=== PATIENT | female | born 1940 | race Caucasian/White ===

== ENCOUNTER → 2023-12-24 10:45 | Outpatient (REF) | payer MEDICARE, OTHER, SELFPAY | LOC: DHCBC MAIN 10:45 | PROVIDERS: ATTENDING PHYSICIAN Internal Medicine Cardiovascular Disease; FAMILY PHYSICIAN Family Medicine | DX: I25.10 Atherosclerotic heart disease of native coronary artery without angina pectoris (principal); I21.4 Non-ST elevation (NSTEMI) myocardial infarction; I10 Essential (primary) hypertension; R00.2 Palpitations; R01.1 Cardiac murmur, unspecified | CPT/HCPCS: 93306 ==

== ENCOUNTER 2024-01-21 21:51 | Inpatient (IN) | payer MEDICARE, OTHER, SELFPAY ==
[2024-01-21 18:12] VITALS: BP 127/50
[2024-01-21 18:49] LABS: % Basophils 0.1 % (0-2); % Eosinophils 0.1 % (0-6); % Immature Granulocytes 1.1 % (0-0.5); % Lymphocytes 9.8 % (20.5-51.1); % Monocytes 17.6 % (1.7-9.3); % Neutrophils 71.3 % (42.2-75.2); Absolute Immature Granulocytes 0.2 10^3/uL (0-0.05); Absolute Lymphocytes 1.9 10^3/uL (1.2-3.4); Absolute Monocytes 3.5 10^3/uL (0.1-0.6); Hematocrit 28.8 % (37.0-47.0); Hemoglobin 9.3 g/dL (12.0-16.0); Mean Corp Hgb Conc. 32.3 g/dL (33.0-37.0); Mean Corpuscular Hgb 29.8 pg (27.0-31.0); Mean Corpuscular Volume 92.3 fL (81.0-99.0); Mean Platelet Volume 9.7 fL (7.4-10.4); Nucleated Red Blood Cells % 0 %; Platelet Count 219 10^3/uL (130-400); Red Blood Cell Count 3.12 10^6/uL (4.20-5.40); Red Cell Dist. Width 14.9 % (11.5-14.5); White Blood Cell Count 19.7 10^3/uL (4.8-10.8)
[2024-01-21 19:08] LABS: ALT (SGPT) 18 U/L (0-35); AST (SGOT) 31 U/L (14-36); Albumin 3.6 g/dl (3.5-5.0); Alkaline Phosphatase 94 U/L (38-126); Blood Urea Nitrogen 55 mg/dl (7-17); Calcium 8.4 mg/dl (8.4-10.2); Carbon Dioxide 9 mmol/L (22-30); Chloride 100 mmol/L (98-107); Glucose 82 mg/dl (70-99); Potassium 4.1 mmol/L (3.5-5.1); Sodium 132 mmol/L (135-145); Total Bilirubin 0.6 mg/dl (0.2-1.3); Total Protein 6.8 g/dl (6.3-8.2); eGFR 5.39
--- NOTE | 2024-01-21 20:16 | ED.GENMED ---
History of Present Illness
General
Chief Complaint: Abdominal Symptoms
Source: patient
Exam Limitations: none
Time Seen by Provider: 01/21/24 19:54
Travel History
Have you had any contact with someone who has COVID-19?: No
Do you have any symptoms of coronavirus? Fever > 100 degrees, chills, cough, shortness of breath, sore throat, loss of taste or smell, muscle aches, or headache?: No
History of Present Illness
History of Present Illness:
This is a 83 year old female that comes in with c/o abd pain. States that last she went to see the PCP. States that she had abd pain and has been having diarrhea. States that she was told that this is colitis and place on Keflex 500mg Q8
hours and Flagyl 500mg Q8 hours. States that she tookd her last dose at 5pm today. states that her PCP has been checking on her and she is not getting any better. States that today he told her to come to the ER. Patient had a CT scan yesterday at
the [facility]. States that she has had chills, abd pain, dry heaves and diarrhea. Denies any fever, chest pain, SOB, nausea, headache, dizziness, urinary burning.
Past History
Past History
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
ED Past Surgical History: Cardiac (Stent), Urological (Bladder tumor removed, ) and Other (Right and left Carotid endarterectomy)
Social History
Tobacco: Non-smoker
Alcohol: Occasional
Personal:
Living: alone
Review of Systems
Review of Systems
All Other Systems: ROS reviewed and negative except as documented in HPI and ROS
Constitutional: Reports chills; Denies fever
EENT: Reports no symptoms
Respiratory: Reports no symptoms; Denies cough or trouble breathing
Cardiac: Reports no symptoms; Denies chest pain
ABD/GI: Reports abdominal pain, diarrhea and other (Dry heaves); Denies nausea
: Reports other (Decreased output); Denies dysuria, frequency or urgency
Musculoskeletal: Reports no symptoms
Skin: Reports no symptoms
Neurological: Reports no symptoms; Denies dizzy or headache
Psychiatric: Reports no symptoms
Phy Exam
General Physical Exam
General Presentation: no apparent distress
General age: appears stated age
General Skin: warm and dry
General Habitus: elderly
General Mental: alert
General Hydration: dry mucous membranes
ENT Exam
ENT Exam: TM's normal, pharynx normal and neck supple
Cardiovascular Exam
Cardiovascular Exam: regular rate/rhythm, no edema and normal peripheral pulses
Pulmonary Exam
Pulmonary Exam: lungs clear, no respiratory distress, no rales, chest non tender, no crackles, no rhonchi, no wheezing and no cough
Gastrointestinal Exam
Gastrointestinal Exam: normal bowel sounds, soft, no organomegaly, no pulsatile mass, non distended and tender (left sided tenderness with palpation)
Musculoskeletal Exam
Musculoskeletal Exam: full ROM and no edema
Skin Exam
Skin Exam: normal color, warm/dry, no rash and no petechia
Psychiatric Exam
Psychiatric Exam: normal mood/affect
Course
Orders/Labs/Results
Orders:
Orders
01/21/24 18:20
CMP [Comprehensive Metabolic Panel] Urgent
Complete Blood Count/With Diff Urgent
Erythrocyte Sed Rate Urgent
Comment: ADDED
01/21/24 20:07
Urinalysis Reflex To Culture Urgent
0.9% Sodium Chloride 1000 ml [Nss] 1,000 ml IV BOLUS
Piperacillin/Tazo 3.375 Gram [Zosyn] 3.375 gram in 50 ml IV NOW
01/21/24 20:08
Bladder Scan- Treatment ONCE
01/21/24 20:31
STOOL [C difficile Antigen & Toxins] Urgent
SAMSON Source: Feces/Stool
Specimen Description:
Stool Culture Urgent
SAMSON Source: Feces/Stool
Specimen Description:
Stool For WBC Urgent
SAMSON Source: Feces/Stool
Specimen Description:
01/21/24 21:01
Admit/Transfer Patient As Directed
Co-Sign Provider:
Level of Care: Inpatient admission
Assign to:: IMU- Intermediate Care
Physician / Group: Mayank
Diagnosis: Colitis, Sepsis, [place]
Reason for Hospitalization: Colitis, Sepsis, [place]
Expected length of stay greater than two midnights?: Yes
ELOS- Estimated Length of Stay in days: 4
I certify the patient meets the requirements for IP care: Yes
01/21/24 21:08
Code Status As Directed
Resuscitation Status: Full Code
01/21/24 21:18
Lactic Acid Urgent
01/21/24 23:11
Blood Culture Q1M
SAMSON Source: Blood/Venous
Specimen Description:
Acetaminophen [Tylenol] 650 mg PO Q4HPRN PRN
Dextrose 5%/Water 1000 ml [D5w] 1,000 ml Sodium Bicarbonate 150 meq IV 125 mls/hr
Dextrose 50%-Water [Dextrose 50% Syringe] 12.5 grams IV [id number] PRN
Glucagon [GlucaGen] 1 mg IM PRN PRN
HYDROmorphone [Dilaudid] 0.5 mg IV Q4HPRN PRN
01/21/24 23:11
GASTROINTESTINAL CONSULT Routine
Consulting Provider: Nae Marr
Was physician already notified: Yes
Reason for consult: Colitis
Calprotectin, Fecal [S] Routine
TSH Reflex To Free T4 Routine
Activity As Directed
Activity Level: Bedrest
Bedside Glucose Monitoring As Directed
Frequency: AC&HS
Comment: Change to q6h if pt on TPN, tube feeding or not eating
Bladder Scan As Directed
Follow Bladder Retention/Intermittent Cath Algorithm?: Yes
PRN if no void in __ hours: 6
Frequency: Per Retention Algorithm
If Bladder Scan Result >: 400
then:: Straight cath
EKG with chest pain [ECG as needed] As Directed
ECG as needed for:: Chest Pain
I/O [Intake/ Output] As Directed
Frequency: Per unit guidelines
Orthostatic Vital Signs As Directed
Orthostatic VS Frequency: BID
Pneumatic Compression Sleeves As Directed
Type: Knee high
Straight Cath As Directed
Frequency: Per Retention Algorithm
Additional Instructions: straight cath as needed per acute urinary retention algorithm for 24 hrs
Additional Instructions: for bladder scan greater than 400 mL
Vital Signs As Directed
Frequency: Per unit guidelines
Weight As Directed
Frequency: Daily
Oxygen Therapy [O2 Therapy] [RESP] Routine
Titrate/Wean O2 to maintain O2 sat greater than (%): 94
Ot Eval And Treat Routine
PT Consult [Pt Eval And Treat] Routine
Activity Level: Ambulate
With Assistance
DX Deep Vein Thrombosis Video Routine
01/21/24 23:12
Blood Culture Q1M
SAMSON Source: Blood/Venous
Specimen Description:
01/22/24 04:00
Piperacillin/Tazo 2.25 Gram [Zosyn] 2.25 grams in 50 ml IV Q8H
01/22/24 Breakfast
Clear Liquid
At Your Request: Full Participation
Basic Metabolic Panel IN AM
Complete Blood Count/No Diff IN AM
Glycohemoglobin (HgbA1c) IN AM
Magnesium IN AM
01/22/24 07:30
Insulin Aspart Corrective Low [Novolog Flexpen-Low Resistance] See Protocol SC AC
01/22/24 08:00
Brimonidine [Alphagan 0.2% Eye Drops] 0 drop RIGHT EYE BID
Clopidogrel Bisulfate [Plavix] 75 mg PO DAILY
Timolol Maleate 0.5% [Timoptic 0.5% Ophthalmic Solution] 0 drop RIGHT EYE DAILY
01/22/24 18:00
Enoxaparin Sodium [Lovenox] 40 mg SC QPM
Abnormal Lab Results
01/21/24 01/21/24
18:20 21:18
WBC 19.7 H 10^3/uL
(4.8-10.8)
RBC 3.12 L 10^6/uL
(4.20-5.40)
Hgb 9.3 L g/dL
(12.0-16.0)
Hct 28.8 L %
(37.0-47.0)
MCHC 32.3 L g/dL
(33.0-37.0)
RDW 14.9 H %
(11.5-14.5)
Abs Immat Gran (auto) 0.2 H 10^3/uL
(0-0.05)
Absolute Neuts (auto) 14.0 H 10^3/uL
(1.4-6.5)
Absolute Monos (auto) 3.5 H 10^3/uL
(0.1-0.6)
Immature Gran % 1.1 H %
(0-0.5)
Lymphocytes % 9.8 L %
(20.5-51.1)
Monocytes % 17.6 H %
(1.7-9.3)
ESR 74 H mm/hour
(0-20)
Sodium 132 L mmol/L
(135-145)
Carbon Dioxide 9 L* mmol/L
(22-30)
BUN 55 H mg/dl
(7-17)
Creatinine 7.1 H* mg/dL
(0.6-1.0)
Lactic Acid < 0.5 L mmol/L
(0.7-2.0)
01/21/24 18:20
01/21/24 18:20
Leukocytosis, H/H low. Sodium slightly low. Carbon dioxide extremely low. Acute renal failure, Lactic acid <0.5
Vital Signs
Initial and Last Documented VS:
Initial Vital Signs
Temp Pulse Resp BP Pulse Ox
98.4 F 94 18 127/50 97
01/21/24 18:12 01/21/24 18:12 01/21/24 18:12 01/21/24 18:12 01/21/24 18:12
Last Documented Vital Signs
Temp Pulse Resp BP Pulse Ox
98.6 F 74 17 123/62 96
01/21/24 23:20 01/22/24 01:15 01/22/24 01:15 01/22/24 00:00 01/22/24 01:24
MDM/Problems Addressed
Differential Diagnosis Includes:
Colitis, Renal failure,
MDM/Problems Addressed:
This is a 83 year old female that comes in with c/o abd pain. Patient was seen by the PCP last and diagnosed with Colitis. States that she was not getting any better and was sent for a CT scan yesterday. Today patient was told to come to
the hospital.
Explained to patient that she would be admitted as she was in renal failure and has continued Colitis even after the antibiotics. Will give IV fluids and admit. Patient was bladder scanned for only 10ml after voiding. Hospitalist notified.
Chronic conditions affecting care: DM
Acute Exacerbation and/or Progression of Chronic Illness:
NA
*Radiology
Radiology exam reviewed: other (CT done as out patient yesterday: Moderate Colitis of the sigmoid colon, which may be inflammatory or infectious. )
*Pulse Oximetry
Patient hypoxic: no
*EKG
Interpreted by ED Provider?: NA
Rate: EKG- N/A
*Sql Data Analyst Interpretation
Rate: normal
Heart Rate: 89
Rhythm: sinus
*Critical Care Note
Total Time (30-74mins, 75-104mins- exclusive of procedures): Not Applicable
ED Attending Note
-
Portions of this chart may have been created with voice recognition software.� Occasional wrong word or��sound alike� substitutions may have occurred due to the inherent limitations of voice recognition software.
Discharge Plan
Departure
Patient Disposition: Admit
Admit to: Telemetry
Presentation/result/management discussed w/ accepting MD/DO: Hospitalist
Patient with high blood pressure during this ER visit?: No
Condition: Good
Covid-19: Not Applicable
Discharge Problem:
Acute renal failure, Colitis
Interventions
Interventions:
*Risk Screen - Suicide Last Done: 01/21/24 20:33
*General Assessment Last Done: 01/21/24 20:15
*Neglect/Abuse Screening Last Done: 01/21/24 20:15
*ED COVID-19 Vaccine History Last Done: 01/22/24 00:12
*Nursing Disposition Last Done: 01/21/24 23:13
[id number] Assessment Last Done: 01/21/24 20:31
Discharge Date and Time
Discharge Date/Time: 01/21/24 23:13
[2024-01-21] MEDS: NSS 1000 IV (20:18)
[2024-01-21] MEDS: ZOSYN 50 IV (20:19)
[2024-01-21 21:01] VITALS: BP 122/49
--- NOTE | 2024-01-21 21:13 | HPS.HSE ---
Family Physician
-
Family Physician:
Chief Complaint
-
Abd Pain, Diarrhea
History of Present Illness
Patient is an 83y F with PMH significant for ASCVD, HTN and ulcerative colitis who presents to ED complaining of abdominal pain and diarrhea. Patient states that her symptoms started one week ago with watery, mucousy stools and some crampy
abdominal discomfort. Patient notes that she started taking mesalamine / Lialda 2.4g daily - which she only takes when she is having a flare of her UC. Her symptoms did not improve and the following day she spoke with her GI physician who
recommended she increase her dose to 4.8g daily. Her symptoms persisted and patient notes several watery BMs per day mixed with mucus - at times large amounts. Stool is described as 'orange / brown'. She reports some abdominal discomfort -
specifically in the upper abdomen.
She has had intermittent chills, poor appetite and general malaise. Patient reports initial urinary frequency - followed by decrease in urinary output.
Yesterday, she was seen by her GI physician. CT scan was done as an outpatient which shows sigmoid colitis. Patient was prescribed cephalexin and metronidazole which she started yesterday afternoon.
Today she continued to feel poorly and was advised to present to the ED for further evaluation.
Medical History
Past Medical History
Past Medical History: Reports Other
Additional Past Medical History:
Ulcerative Colitis
ASCVD (CAD, Carotid Disease, CVA)
Hypertension
DM-II, Diet Controlled
Bladder Cancer
Past Surgical History: Reports Other
Additional Past Surgical History:
Bilateral CEA
PTCA with Stent
Left Cataract
TURBT
Social History
Tobacco: Former Smoker (Quit smoking 20 years ago. Approx 40 pack years total use.)
Alcohol: Occasional
Drug: None
Family History
Family History: Other (Father: CAD Mother: Longevity)
Allergies / Home Medications
Allergies reflects when Allergies were last updated in [employer].
Home Medications with original date entered in [employer]
Allergy/Medication List:
Allergies
Allergy/AdvReac Type Severity Reaction Status Date / Time
No Known Allergies Allergy Verified 02/16/21 06:16
Home Medications
mesalamine 1.2 gram tablet,delayed release (Lialda) 4.8 g PO DAILY 09/11/18
nitroglycerin 0.4 mg sublingual tablet 0.4 mg sublingual [id number] PRN chest pain #25 tabs 09/12/18
empagliflozin 25 mg tablet (Jardiance) 25 mg PO DAILY Diabetes 01/03/21
rosuvastatin 40 mg tablet (Crestor) 40 mg PO HS High cholesterol 01/03/21
clopidogrel 75 mg tablet 75 mg PO DAILY #30 tabs 01/07/21
lorazepam 0.5 mg tablet 0.5 mg PO Q4HPRN PRN ANXIETY 02/08/21
latanoprost 0.005 % eye drops 1 drp RIGHT EYE HS Eye condition 02/16/21
metoprolol succinate 50 mg tablet,extended release 24 hr 50 mg PO DAILY 02/16/21
timolol maleate 0.5 % eye drops 1 drp RIGHT EYE DAILY Eye condition 02/16/21
acetaminophen 325 mg tablet 650 mg PO Q4HPRN PRN mild pain or temp >/= 100.4 F 02/17/21
brimonidine 0.2 % eye drops 1 drp RIGHT EYE BID 01/21/24
cephalexin 500 mg capsule 500 mg PO Q8H 01/21/24
lisinopril 40 mg tablet 40 mg PO DAILY 01/21/24
metronidazole 500 mg tablet 500 mg PO Q8H 01/21/24
Review of Systems
-
History Source: Patient
A 12 point ROS was completed and negative except as noted: Yes
Constitutional: Reports Fatigue and Chills; Denies Fever
EENT: Denies Sore Throat
Respiratory: Denies Cough or Trouble Breathing
Cardiac: Denies Chest Pain or Palpitations
Abdomen/GI: Reports Abdominal Pain, Diarrhea and Anorexia; Denies Nausea, Vomiting, Bloody Stools or Black Stools
: Reports Frequency; Denies Dysuria or Flank Pain
Musculoskeletal: Denies Joint Pain or Edema
Neurological: Denies Dizzy or Headache
Psych: Denies Depression or Anxiety
Physical Exam
Vital Signs
Vital Signs
Temp Pulse Resp BP Pulse Ox
98.4 F 87 18 127/50 99
01/21/24 18:12 01/21/24 20:22 01/21/24 20:22 01/21/24 18:12 01/21/24 20:22
Physical Exam
General: Other (83y F in no acute distress.)
HEENT: PERRLA and Other (Dry MM.)
Respiratory: Clear; No Wheezes, Rales or Rhonchi
Cardiac: S1/S2 and Regular Rhythm; No Murmur
GI: Other (Soft, pos tendern in the RUQ region at present. No rebound / guarding. Pos BS.)
Musculoskeletal: No Clubbing, No Cyanosis and No Edema
Neuro: AO x 3
Laboratory Results
-
01/21/24 18:20
01/21/24 18:20
Laboratory Results
Total Bilirubin 0.6 mg/dl (0.2-1.3) 01/21/24 18:20
AST 31 U/L (14-36) 01/21/24 18:20
ALT 18 U/L (0-35) 01/21/24 18:20
Alkaline Phosphatase 94 U/L (38-126) 01/21/24 18:20
Impression/Plan
-
A/P: Patient is an 83y F with PMH significant for ASCVD, HTN and ulcerative colitis who presents to ED complaining of abdominal pain and diarrhea x 1 week.
Sigmoid Colitis
Ulcerative Colitis
- Admit for further evaluation and treatment.
- Watery stool with mucus x 1 week - decreasing in frequency - with CT scan 01/20 showing sigmoid colitis.
- ? ulcerative colitis flare versus infectious versus ischemic.
- Only started on abx 24 hours ago.
- High risk for ischemic colitis given history of vascular disease, etc.
- Unable to do CTA, etc secondary to marked renal impairment (see below).
- IV abx for now. Check stool cultures / blood cultures.
- IVF support and avoid hypotension (see below).
- Follow clinical status, serial lactate levels, etc.
- GI evaluation for additional recommendations.
[place]
Anion Gap Metabolic Acidosis
- Likely secondary to hypovolemia +/- hypotension / ATN.
- IVF support with supplemental bicarb for now.
- Avoid hypotension.
- Follow I/Os / urine output.
- Follow for improvement in renal function.
- Nephrology evaluation for additional recommendations.
- Renally dose abx / other medications.
- Lactate is pending but suspect it will be significantly elevated - follow for improvement.
- CT done 01/20 was done WITHOUT contrast media.
Benign Hypertension
- Hold all antihypertensive medications acutely.
- Discontinue SGLT2 inhibitor.
- IVF support as noted above.
ASCVD
- Patient with significant history of vascular disease including coronary disease, bilateral carotid disease and R retinal artery occlusion.
- Continue Plavix.
- Hold BP meds as noted above.
- IVF support / avoid hypotension.
DM-II
- Stable. Hold / discontinue Jardiance as noted above.
- Follow glucose and cover with SSI as needed.
- Update A1C.
DVT Prophylaxis: Lovenox
Code Status: Full
[2024-01-21 21:35] LABS: Lactic Acid < 0.5 mmol/L (0.7-2.0)
[2024-01-21 22:00] VITALS: BP 94/50
[2024-01-21 23:00] VITALS: BP 110/59
[2024-01-21 23:18] VITALS: BP 126/54
[2024-01-21 23:20] VITALS: BMI 30.4
[2024-01-22] VITALS (10 sets, daily range): BP systolic 94–129; BP diastolic 48–75; BMI 30.7
[2024-01-22] MEDS: SODIUM BICARBONATE 1150 MEQ IV ×3 (00:05→20:01)
[2024-01-22 00:43] LABS: Erythrocyte Sed Rate 74 mm/hour (0-20)
[2024-01-22 01:25] LABS: TSH Reflex To Free T4 0.66 uIU/ml (0.47-4.68)
[2024-01-22] MEDS: ZOSYN 50 IV ×3 (03:58→20:01)
[2024-01-22 04:16] LABS: Hematocrit 26.7 % (37.0-47.0); Hemoglobin 8.7 g/dL (12.0-16.0); Mean Corp Hgb Conc. 32.6 g/dL (33.0-37.0); Mean Corpuscular Hgb 29.5 pg (27.0-31.0); Mean Corpuscular Volume 90.5 fL (81.0-99.0); Mean Platelet Volume 9.5 fL (7.4-10.4); Platelet Count 207 10^3/uL (130-400); Red Blood Cell Count 2.95 10^6/uL (4.20-5.40); Red Cell Dist. Width 14.8 % (11.5-14.5); White Blood Cell Count 15.7 10^3/uL (4.8-10.8)
[2024-01-22 04:46] LABS: Blood Urea Nitrogen 62 mg/dl (7-17); Calcium 7.4 mg/dl (8.4-10.2); Carbon Dioxide 10 mmol/L (22-30); Chloride 100 mmol/L (98-107); Estimated Creatinine Clearance 6 ml/min; Glucose 144 mg/dl (70-99); Magnesium 2.5 mg/dl (1.6-2.3); Potassium 4.3 mmol/L (3.5-5.1); Sodium 133 mmol/L (135-145); eGFR 5.21
--- NOTE | 2024-01-22 05:07 | PTCARENOTE ---
Received patient from the ED overnight. Remains on IVF with bicarb with no urine output. Bladder scanned for 0.
--- NOTE | 2024-01-22 06:56 | CON.GI ---
Addendum entered and electronically signed by Nae Marr MD 01/22/24 17:56:
I saw and examined the patient.
The CUT FILE CLERK's note was reviewed and I agree with the note.
Comment: This is a 83-year-old female who has a history of ulcerative colitis known to Dr. Feldman and was using Lialda as needed whenever she had a flare who had been having symptoms of diarrhea with mucus in her stool no blood in her stool for the
past 1 week. no f/c. She says that she restarted her Lialda last week was taking 2.4 gmdaily when she did not have improvement of symptoms was recommended to increase the dose to 4.8 g daily she also had a CT as an outpatient 01/20 which was noted to
have sigmoid colitis and was started on antibiotics with cephalexin and metronidazole which she started yesterday with no improvement of symptoms and presented to the emergency room. On admission she was noted to have severe BROOK[place]N with anion gap
metabolic acidosis and has also been seen by renal and her electrolytes are being corrected also. She also had leukocytosis which is improving on antibiotic she is currently on Zosyn, her stool studies C. difficile antigen positive but toxin
negative, crypto and Giardia negative, cultures pending
Assessment and plan symptoms of diarrhea with mucus in her stool nonbloody for the past 1 week with severe dehydration also from decreased p.o. intake with BROOK[place]N and metabolic acidosis. Will stop Lialda for now since cannot rule out worsening renal
function from Lialda also. Unclear if her symptoms are related to flare or if it was related to infectious colitis or ischemic colitis. If her symptoms persist and cultures neg, then will start her on budesonide or prednisone unfortunately her
last colonoscopy was in 2012 and patient had refused colonoscopy after that because of her underlying comorbidities. Continue clear liquid diet for now, will also get fecal kuldeep, CRP is 224.
Noted input from renal for renal biopsy after Plavix washout and to be started on hemodialysis soon
Original Note:
Consultation
-
Date/Time Consultation Requested: 01/21/24 2300
Date/Time Consultation Performed: 01/22/24 0700
Requesting Provider: Kobe Talley DO
Performing Provider: RICHIE Argueta, Nae Marr MD
Reason for Consultation: colitis
Medical History
Chief Complaint / HPI
Chief Complaint: diarrhea, abdominal pain
History of Present Illness:
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 She had follow up with
[facility] and with hx multiple medical issue as declined colonoscopy in past 10 years. She related she use Lialda for per colitis PRN. She will have flare about every 6 months and take 1-2 weeks of therapy. She started last Saturday with diarrhea and
started Lialda 2.4 gram tablet then diarrhea and mucous continued. She spoke with Dr. Nuñez her PCP on and recommended increase dose to 4.8 grams daily. On Saturday she was noted with shaking chill while at PT but recall BP stable at
118/52 and 130/74 during therapy session. She persisted to have abdominal pain and diarrhea but not large volumes and PCP recommended CT and abx. She completed CT without contrast 01/20 with moderate colitis of sigmoid colon infectious vs
inflammatory and directed to ER. On admission noted with WBC 19.7, hbg 9.3, Na 132, co2 9, BUN 55, creat 7.1.
Pt admits to continued abdominal pain and small volumes of diarrhea. She has been noted with dry heaves but denies dysphagia, GERD,nausea, vomiting, blood or black in stools.
03/2013 Feldman colonoscopy inflammation in mid ascending colon secondary to colitis bx active colitis ascending colon with other bx evidence of chronicity
01/2010 Feldman colonoscopy-glandularity at hepatic flexure, diverticulosis, mccormick ulcerative colitis bx with TC active colitis congestion and increased inflammation cell with foci of active inflammation with cryptitis
Past Medical History
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
Past Surgical History: Cardiac (stent), Urological (bladder tumor removal, right and left carotids endarterectomy) and Other (CEA)
Social History
Tobacco: Former Smoker (quit 2003)
Alcohol: None
Drug: None
Personal:
Living: Alone
Employment: Retired
Family History
Family History: Other (brother maternal uncle, and cousin with UC, mother with colon problems no family hx colon cA or polyps)
Allergies / Home Medications
Allergy/AdvReac Type Severity Reaction Status Date / Time
No Known Allergies Allergy Verified 02/16/21 06:16
Medication Instructions Recorded
mesalamine 1.2 gram tablet,delayed 4.8 g PO DAILY 09/11/18
release (Lialda)
nitroglycerin 0.4 mg sublingual 0.4 mg sublingual [id number] PRN 09/12/18
tablet chest pain #25 tabs
empagliflozin 25 mg tablet 25 mg PO DAILY Diabetes 01/03/21
(Jardiance)
rosuvastatin 40 mg tablet (Crestor) 40 mg PO HS High cholesterol 01/03/21
clopidogrel 75 mg tablet 75 mg PO DAILY #30 tabs 01/07/21
lorazepam 0.5 mg tablet 0.5 mg PO Q4HPRN PRN ANXIETY 02/08/21
latanoprost 0.005 % eye drops 1 drp RIGHT EYE HS Eye condition 02/16/21
metoprolol succinate 50 mg 50 mg PO DAILY 02/16/21
tablet,extended release 24 hr
timolol maleate 0.5 % eye drops 1 drp RIGHT EYE DAILY Eye condition 02/16/21
acetaminophen 325 mg tablet 650 mg PO Q4HPRN PRN mild pain or 02/17/21
temp >/= 100.4 F
brimonidine 0.2 % eye drops 1 drp RIGHT EYE BID 01/21/24
cephalexin 500 mg capsule 500 mg PO Q8H 01/21/24
lisinopril 40 mg tablet 40 mg PO DAILY 01/21/24
metronidazole 500 mg tablet 500 mg PO Q8H 01/21/24
Review of Systems
-
History Source: Patient
Constitutional: Reports Chills
EENT: Reports No Symptoms
Respiratory: Reports No Symptoms
Cardiac: Reports No Symptoms
Abdomen/GI: Reports Nausea (dry heaves ) and Diarrhea
: Reports No Symptoms
Musculoskeletal: Reports No Symptoms
Skin: Reports No Symptoms
Neurological: Reports Weakness
Endocrine: Reports No Symptoms
Hematologic/Lymphatic: Reports No Symptoms
Vital Signs
Temp Pulse Resp BP Pulse Ox
98.3 F 77 16 124/75 97
01/22/24 03:05 01/22/24 05:45 01/22/24 05:45 01/22/24 04:00 01/22/24 05:45
Physical Exam
Exam
General: Well Developed, Well Nourished and No Apparent Distress
HEENT: Normocephalic and Anicteric
Respiratory: Clear
Cardiac: Regular Rhythm
GI: Soft, Non Tender and Non Distended
Musculoskeletal: No Clubbing and No Cyanosis
Skin: Warm and Dry
Neuro: Awake, Alert and AO x 3
Psych: Calm
Results
WBC 15.7 10^3/uL (4.8-10.8) H 01/22/24 03:53
Hgb 8.7 g/dL (12.0-16.0) L 01/22/24 03:53
Hct 26.7 % (37.0-47.0) L 01/22/24 03:53
MCV 90.5 fL (81.0-99.0) 01/22/24 03:53
Plt Count 207 10^3/uL (130-400) 01/22/24 03:53
Absolute Neuts (auto) 14.0 10^3/uL (1.4-6.5) H 01/21/24 18:20
Sodium 133 mmol/L (135-145) L 01/22/24 03:53
Potassium 4.3 mmol/L (3.5-5.1) 01/22/24 03:53
Chloride 100 mmol/L (98-107) 01/22/24 03:53
Carbon Dioxide 10 mmol/L (22-30) L* 01/22/24 03:53
BUN 62 mg/dl (7-17) H 01/22/24 03:53
Creatinine 7.3 mg/dL (0.6-1.0) H* 01/22/24 03:53
Calcium 7.4 mg/dl (8.4-10.2) L 01/22/24 03:53
Total Bilirubin 0.6 mg/dl (0.2-1.3) 01/21/24 18:20
AST 31 U/L (14-36) 01/21/24 18:20
ALT 18 U/L (0-35) 01/21/24 18:20
Alkaline Phosphatase 94 U/L (38-126) 01/21/24 18:20
Diagnostic Image Results:
01/20/24 CT Abd/pelvis Wo Iv Cont
Moderate colitis of the sigmoid colon, which may be inflammatory or infectious.
Prior GI Procedures:
03/2013 [facility] colonoscopy inflammation in mid ascending colon secondary to colitis bx active colitis ascending colon with other bx evidence of chronicity
01/2010 Feldman colonoscopy-glandularity at hepatic flexure, diverticulosis, mccormick ulcerative colitis bx with TC active colitis congestion and increased inflammation cell with foci of active inflammation with cryptitis
Assessment / Plan
-
Pt is a 83yo presents with hx ulcerative colitis on PRN Lialda, , CAD, CKD, bladder and skin CA, HTN, hypercholesterolemia, NIDDM, TN, prior CVA with vision loss on chronic Plavix, with onset of abdominal pain and diarrhea. She had follow up with
Dr. Feldman and with hx multiple medical issue as declined colonoscopy in past 10 years. She related she use Lialda for per colitis PRN. She will have flare about every 6 months and take 1-2 weeks of therapy. She started last Saturday with diarrhea
and started Lialda 2.4 gram tablet then diarrhea and mucous continued. She spoke with Dr. Nuñez her PCP on and recommended increase dose to 4.8 grams daily. On Saturday she was noted with shaking chill while at PT but recall BP stable
at 118/52 and 130/74 during therapy session. She persisted to have abdominal pain and diarrhea but not large volumes and PCP recommended CT and abx. She completed CT without contrast 01/20 with moderate colitis of sigmoid colon infectious vs
inflammatory and directed to ER. On admission noted with WBC 19.7, hbg 9.3, Na 132, co2 9, BUN 55, creat 7.1.
-colitis with hx longstanding Ulcerative colitis Lialda use PRN
-diarrhea
-BROOKLYN with hx CKD
-metabolic acidosis
-leukocytosis
-anemia
-shaking chills prior to admission
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
other medical problems:
-HTN
-CAD
--DM on Jardiance prior to admission
-bladder CA
-skin CA
-hx CEA
PLAN:
etiology of diarrhea related to infectious etiology, UC flare vs other
await stool studies-- with concurrent BROOK[place]N need to rule out Ecoli shiga if + stop abx but no blood stools and not large volumes
add CRP, ESR and await fecal kuldeep to be sent
await renal input with [place] and correction of acidosis
hold Lialda for now as some risk of renal disease with use though not on long-term
pt remain on Plavix with hx CVA with CVA with visual loss
ok for clear diet- still with abdominal pain on exam
discussed with patient will need GI follow up after admission --prior follow with Dr. Feldman will need new GI MD to discuss continued UC treatment
will follow
-
-
Thank you for consultation and allowing me to participate in the patient's care. Please call the transactional paralegal GI physician during the after hours with any questions or concerns.
[2024-01-22 07:39] LABS: Glucose - Point of Care 179 mg/dl (70-99)
[2024-01-22] MEDS: HEPARIN 5000 UNITS SC ×2 (08:18→20:00)
[2024-01-22] MEDS: PLAVIX 75 MG PO (08:18)
[2024-01-22] MEDS: DILAUDID 0.5 MG IV ×3 (08:19→20:01)
[2024-01-22] MEDS: TIMOPTIC 0.5% OPHTHALMIC SOLUTION 1 DROP RIGHT EYE (08:20)
[2024-01-22] MEDS: NOVOLOG FLEXPEN-LOW RESISTANCE SC ×2 (08:52→14:20)
[2024-01-22 09:30] LABS: Erythrocyte Sed Rate 66 mm/hour (0-20)
[2024-01-22 09:58] LABS: Glycohemoglobin (HgbA1c) 6.9 % (4.0-5.6)
--- NOTE | 2024-01-22 10:00 | W.CON.NEPH ---
Consultation
-
Date/Time Consultation Requested: 01/22/24 0624
Date/Time Consultation Performed: 01/22/24 1000
Requesting Provider: Kobe David
Performing Provider: Carol Ruiz
Reason for Consultation: [place]
Medical History
-
Chief Complaint: abd pain
History of Present Illness:
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 Patient states that her
symptoms started one week ago with watery, mucousy stools and some crampy abdominal discomfort.� Patient notes that she started taking mesalamine / Lialda 2.4g daily - which she only takes when she is having a flare of her UC.� Her symptoms did not
improve and the following day she spoke with her GI physician who recommended she increase her dose to 4.8g daily.� Her symptoms persisted and patient notes several watery BMs per day mixed with mucus - at times large amounts. She reports some
abdominal discomfort - specifically in the upper abdomen.
She has had intermittent chills, poor appetite and general malaise.� Patient reports decreased urinary frequency with small volume in last 2-3days, no urine since admit.
CT scan was done as an outpatient with out contrast on 01/20 which shows sigmoid colitis.� Patient was prescribed cephalexin and metronidazole which she started on Saturday but no relief.
On Admit cr was 7, bicarb at 9, bicarb IVF started but no improvement cr remains at 7.3. No UOP. Denies any skin rashes or joint swelling. No edema. had no dysuria before.
Past Medical History
Ulcerative Colitis
ASCVD (CAD, Carotid Disease, CVA)
Hypertension
DM-II, Diet Controlled
Bladder Cancer
Past Surgical History: Other (Bilateral CEA PTCA with Stent Left Cataract TURBT)
Social History
smoked for 10 yr before quitting in 2002
Tobacco: Former Smoker
Alcohol: None
Family History
no h/o CKD
Family History: Not Pertinent
Allergies / Home Medications
Allergy/AdvReac Type Severity Reaction Status Date / Time
No Known Allergies Allergy Verified 02/16/21 06:16
Medication Instructions Recorded Confirmed Type
mesalamine 1.2 gram tablet,delayed 4.8 g PO DAILY ulcerative colitis 09/11/18 01/21/24 History
release (Lialda)
nitroglycerin 0.4 mg sublingual 0.4 mg sublingual [id number] PRN 09/12/18 01/21/24 Rx
tablet chest pain #25 tabs
empagliflozin 25 mg tablet 25 mg PO DAILY Diabetes 01/03/21 01/21/24 History
(Jardiance)
rosuvastatin 40 mg tablet (Crestor) 40 mg PO HS High cholesterol 01/03/21 01/21/24 History
clopidogrel 75 mg tablet 75 mg PO DAILY #30 tabs 01/07/21 01/21/24 Rx
lorazepam 0.5 mg tablet 0.5 mg PO Q4HPRN PRN ANXIETY 02/08/21 01/21/24 History
latanoprost 0.005 % eye drops 1 drp RIGHT EYE HS Eye condition 02/16/21 01/21/24 History
metoprolol succinate 50 mg 50 mg PO DAILY Blood Pressure 02/16/21 01/21/24 History
tablet,extended release 24 hr
timolol maleate 0.5 % eye drops 1 drp RIGHT EYE DAILY Eye condition 02/16/21 01/21/24 History
acetaminophen 325 mg tablet 650 mg PO Q4HPRN PRN mild pain or 02/17/21 01/21/24 Rx
temp >/= 100.4 F
brimonidine 0.2 % eye drops 1 drp RIGHT EYE BID Eye Condition 01/21/24 01/21/24 History
cephalexin 500 mg capsule 500 mg PO Q8H Infection 01/21/24 01/21/24 History
lisinopril 40 mg tablet 40 mg PO DAILY Blood Pressure 01/21/24 01/21/24 History
metronidazole 500 mg tablet 500 mg PO Q8H Infection 01/21/24 01/21/24 History
dorzolamide 2 % eye drops drp RIGHT EYE BID 01/22/24 History
Review of Systems
-
all complete 12 point ROS have been inquired and found negative other than stated in HPI
Physical Exam
Vital Signs
Vital Signs
Temp Pulse Resp BP Pulse Ox
98.9 F 79 19 129/59 97
01/22/24 07:20 01/22/24 07:00 01/22/24 07:00 01/22/24 06:00 01/22/24 07:00
Lab Results
WBC 15.7 10^3/uL (4.8-10.8) H 01/22/24 03:53
RBC 2.95 10^6/uL (4.20-5.40) L 01/22/24 03:53
Hgb 8.7 g/dL (12.0-16.0) L 01/22/24 03:53
Hct 26.7 % (37.0-47.0) L 01/22/24 03:53
Plt Count 207 10^3/uL (130-400) 01/22/24 03:53
Sodium 133 mmol/L (135-145) L 01/22/24 03:53
Potassium 4.3 mmol/L (3.5-5.1) 01/22/24 03:53
Chloride 100 mmol/L (98-107) 01/22/24 03:53
Carbon Dioxide 10 mmol/L (22-30) L* 01/22/24 03:53
BUN 62 mg/dl (7-17) H 01/22/24 03:53
Creatinine 7.3 mg/dL (0.6-1.0) H* 01/22/24 03:53
eGFR 5.21 01/22/24 03:53
Glucose 144 mg/dl (70-99) H 01/22/24 03:53
Calcium 7.4 mg/dl (8.4-10.2) L 01/22/24 03:53
Albumin 3.6 g/dl (3.5-5.0) 01/21/24 18:20
Exams:� CT Abd/pelvis Wo Iv Cont
PROCEDURE: CT Abdomen and Pelvis without IV Contrast
CLINICAL INDICATION: Noninfective gastroenteritis and colitis. Diarrhea. Abdominal pain. Bladder cancer.
TECHNIQUE: A CT examination of the abdomen and pelvis was performed without intravenous contrast. Oral contrast was not administered. Coronal and sagittal reformatted images were obtained. Automatic exposure control radiation dose reduction
technology was utilized.
COMPARISON: CT abdomen/pelvis 04/16/2007.
FINDINGS:
CHEST: The lung bases are clear. Small hiatal hernia.
ABDOMEN:
The gallbladder is distended without appreciable cholelithiasis or wall thickening by CT. The unenhanced liver, bile ducts, pancreas, spleen, bilateral adrenal glands, and kidneys are unremarkable. No hydronephrosis or nephrolithiasis.
The abdominal aorta is normal in caliber and contains moderate calcified atherosclerosis.
Tiny fat-containing umbilical hernia.
Moderate wall thickening involves a long segment of the sigmoid colon with pericolonic inflammatory fat stranding most compatible with colitis. No pneumatosis or portal venous gas. No bowel obstruction. Moderate colonic stool burden. Normal
appendix. No extraluminal free air, fluid collection, or ascites.
PELVIS: The urinary bladder, uterus, and adnexa are unremarkable.
SKELETON: Chronic degenerative changes of the spine, and to a lesser degree the bilateral sacroiliac joints and symphysis pubis.
IMPRESSION:
Moderate colitis of the sigmoid colon, which may be inflammatory or infectious.
Office of referring provider notified by telephone and by report fax.
Electronically signed by Timoteo Holbrook 01/20/2024 2:42 PM
[employer] Dose Report: Up-to-date CT equipment and radiation dose reduction techniques were employed. CTDIvol: 10.5 mGy. DLP: 523 mGy-cm.
Dictated By: James Holbrook DO
Dictated Date & Time: 01/20/24 1435
Physical Exam
General: Awake, Alert, Oriented and AOx3
HEENT: EOMI, Anicteric and Other (right eye blind)
Respiratory: Clear and Normal Excursion
Cardiac: S1/S2, Regular Rate/Rhythm and No Edema
Abdomen: Soft, Nondistended and Other (TTP gen more on LLQ)
Musculoskeletal: No Clubbing, No Cyanosis and No Edema
Skin: No Rash and Warm
Psych: Mood/afflect pleasant, Insight/judgement good and Appropriate
Assessment/Plan
-
IMP:
Sigmoid Colitis
Ulcerative Colitis
Severe BROOKLYN-cr 1 in 2020
severe Anion Gap Metabolic Acidosis
Anemia
Leucocytosis
Hyponatremia
Benign Hypertension
CAD s/p stent 2017
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
DM-II
bladder ca
Plan:
A/w abd pain, decreased po intake and found severe BROOK[place] and met acidosis
BROOK[place]N-seem multifactorial, relative hypotension, poor po intake, mesalamine for 1week(takes only as needed), with ACEI+ Jardiance(took for years)
suspect she may be in ATN with anuria, however can not r/o glomerular etiologies with underlying autoimmune disease
check serologies, paraprotein w/u with anemia
we only have labs to compare from 2020, unclear if she had progressive disease
place anne if possible , need urine studies
avoid nephrotoxins including ACEI and Jardiance
A gap met acidosis-L acid normal, pending B hydroxy
cotn bicarb IVF however decrease rate due to anuria, IV bicarb 2 amp push
she likely needs HD in next 24hrs , pt agrees
repeat labs this pm if no improvement likely place temp catheter
she will need K biopsy next week once plavix wash out, got the dose today
Bp are soft and holding all BP meds, echo recently was normal
abx per primary , dose meds renally
d/w pt and GI in detail
[2024-01-22] MEDS: SODIUM BICARBONATE 50 MEQ IV (10:42)
--- NOTE | 2024-01-22 11:29 | W.PN.HOSP.TC ---
Addendum entered and electronically signed by Nnamdi Aquino MD 01/22/24 15:38:
Patient seen and examined
Discussed with resident
Discussed with nephrology
Impression/plan:
Sigmoid colitis with differential ulcerative colitis flare versus infectious, versus ischemic.
Acute kidney injury with anuria likely multifactorial in the settings of dehydration with GI losses, anti-inflammatory therapy, PARVIZ inhibitor
Severe increased anion gap metabolic acidosis
ASCVD with remote stroke on Plavix PREPARED [employer]ATE
Diabetes
Empiric antibiotics pending stool cultures and stool for C. difficile
Gastroenterology consultation.
Clears.
Acute kidney injury with rising creatinine, anuria, and severe metabolic acidosis.
Discussed with nephrology.
Low threshold to initiate renal replacement therapy. Interventional GI consultation in place for HD catheter placement.
Will hold Plavix for possible required renal biopsy
Hope this is ATN and for some renal recovery, although patient have a risk for glomerular process.
Noted elevated serum acetone level likely in the settings of SGLT2 inhibitor.
Hold Jardiance.
Continue basal bolus protocol with serial Accu-Cheks
Hold PARVIZ inhibitor.
Remains critically ill
Original Note:
Today's Communication/Plan
-
Awaiting Blood cultures/stool cultures
Continue Abx
Monitor bmp
Avoid ACEI and Jardiance. Medications leading to ATN
Pending serologies.
Metabolic Acidosis, Cre 7.6.
Will need Hemodialysis within the next 24hours
Assessment / Plan
Assessment / Plan
A/P:� Patient is an 83y F with PMH significant for ASCVD, HTN and ulcerative colitis who presents to ED complaining of abdominal pain and diarrhea x 1 week.
Sigmoid Colitis
Ulcerative Colitis
�- Admit for further evaluation and treatment.
�- Watery stool with mucus x 1 week - decreasing in frequency - with CT scan 01/20 showing sigmoid colitis.
�- ? ulcerative colitis flare versus infectious versus ischemic.
�- Only started on abx 24 hours ago.
�- High risk for ischemic colitis given history of vascular disease, etc.
�- Unable to do CTA, etc secondary to marked renal impairment (see below).
�- IV abx for now.� Check stool cultures / blood cultures.
�- IVF support and avoid hypotension (see below).
�- Follow clinical status, serial lactate levels, etc.
�- GI evaluation for additional recommendations.
BROOK[place]N
Anion Gap Metabolic Acidosis
- Nephrology input appreciated
-BROOK[place]N Multifactorial
-Intake of ACEI and Jardiance for years leading to Acute Tubular Necrosis
-Kidney biopsy to rule out Glomerular etiologies.
�- Likely secondary to hypovolemia +/- hypotension / ATN.
�- IVF support with supplemental bicarb for now.
�- Avoid hypotension.
�- Follow I/Os / urine output.
�- Follow for improvement in renal function
�- Renally dose abx / other medications.
�- CT done 01/20 was done WITHOUT contrast media.
Benign Hypertension
�- Hold all antihypertensive medications acutely.
�- Discontinue SGLT2 inhibitor.
�- IVF support as noted above.
ASCVD
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
�- Continue Plavix.
�- Hold BP meds as noted above.
�- IVF support / avoid hypotension.
DM-II
�- Stable.�discontinue Jardiance
�- Follow glucose and cover with SSI as needed.
�- A1C 6.9
DVT Prophylaxis:� Lovenox
Code Status:� Full
Anticipated Discharge: > 48 hours
Subjective/Interval History
-
Date of Service: January 22, 2024
Objective Data
-
Labs:
Laboratory Results
01/22/24 01/22/24
03:53 11:10
WBC 15.7 H
Hgb 8.7 L
Hct 26.7 L
Plt Count 207
Sodium 133 L Pending
Potassium 4.3 Pending
Chloride 100 Pending
Carbon Dioxide 10 L* Pending
BUN 62 H Pending
Creatinine 7.3 H* Pending
Glucose 144 H Pending
Calcium 7.4 L Pending
Vital Signs:
Vital Signs
Temp Pulse Resp BP Pulse Ox
98.9 F 79 19 129/59 97
01/22/24 07:20 01/22/24 07:00 01/22/24 07:00 01/22/24 06:00 01/22/24 07:00
I&O
01/21/24 01/22/24 01/23/24
06:59 06:59 06:59
Intake Total 925 / 925
Balance 925 / 925
Physical Exam
-
General: Conversant and Other (awake, Alert and Oriented)
HEENT: Normocephalic and Atraumatic
Respiratory: Clear to Auscultation; Negative Wheezes or Rales
Cardiac: Regular Rhythm and S1/S2
GI: Soft, Nontender (Tender LLQ with palpation) and Nondistended
Musculoskeletal: No Clubbing, No Cyanosis and No Edema
Skin: Warm; Negative Rash
Neuro: Awake, Alert, Oriented and AO x 3
Psych: Calm
[2024-01-22 11:42] LABS: Urine Albumin 3+ (Neg - Trace); Urine Bilirubin Negative (Negative); Urine Character Very Cloudy (Clear); Urine Color Yellow; Urine Glucose 1+ (Negative); Urine Ketone 1+ (Negative); Urine Leukocyte Trace (Negative); Urine Nitrite Negative (Negative); Urine Occult Blood Trace (Negative); Urine Urobilinogen Negative (Neg - 1+)
[2024-01-22 12:00] LABS: Urine Hyaline Cast 0-2 /LPF (0-2); Urine Mucus Many
[2024-01-22 12:01] LABS: B-Hydroxybutyrate 1.04 mmol/L (0.02-0.27)
[2024-01-22 12:02] LABS: Urine Amorphous Seen; Urine Squamous Cell >30 /LPF (Few)
[2024-01-22 12:03] LABS: Blood Urea Nitrogen 58 mg/dl (7-17); Calcium 6.8 mg/dl (8.4-10.2); Carbon Dioxide 17 mmol/L (22-30); Chloride 98 mmol/L (98-107); Estimated Creatinine Clearance 5 ml/min; Glucose 180 mg/dl (70-99); Potassium 3.3 mmol/L (3.5-5.1); Sodium 130 mmol/L (135-145); eGFR 4.96
[2024-01-22 12:04] LABS: Urine Bacteria Few (Negative); Urine Red Blood Cell 0-2 /HPF (0-2)
--- NOTE | 2024-01-22 12:15 | PTCARENOTE ---
AAOx3, appropriately tearful/scared. C/o abdominal pain upper 7/10 relieved with IV Dilaudid this am. IVF infusing w bicarb. She states she has spoken to her son although he is unaware of current need for HD. Lungs clear/diminished. No urine
output - bladder scanned 43ml this am.
Passed 2 sm loose /soft bm- specimen sent for studies. Smith placed- specimens sent. Blood work drawn. SCDs intact. Ready for [facility]>
--- NOTE | 2024-01-22 13:21 | PTCARENOTE ---
Escorted to [facility] / IVF and telemetry intact.
--- NOTE | 2024-01-22 15:50 | CM ---
Addendum entered by Yokasta Mccartney RN 01/22/24 16:05:
[facility] cell [phone].
Original Note:
Patient with Dx Sigmoid colitis, [place]. Creatinine 7.6 today. Plan HD catheter placement today. Receiving IV w Bicarb, IV Zosyn. PT & OT held today.
Message from Dr Saunders; undecided at this time if patient will need outpatient HD.
Met with patient who was very pleasant and conversational.
The patient resides alone in a split level house with no ROCIO, 7 + 7 inside stairs.
The patient has been independent in ADLs and ambulation without using an assistive device.
She is active, goes to Gym and does chair yoga, drum exercises.
Does PT exercises at home from prior outpatient therapy, and goes to outpatient PT for myofascial release therapy.
DME - [facility], [facility]
No prior VN or SNF.
PCP - Robert Zarate
Pharmacy - [facility]
Provided contact info for xin Lynn, who is POA- wants him to be primary contact- info given to Admitting.
Daughter Laurel will be 2ndary contact.
Plan follow patient's progress with [place] for possible HD need.
Plan follow up after PT/OT Evals.
[2024-01-22 16:32] LABS: Protein/creatinine Ratio 30.2; Urine Protein 1948 mg/dl
[2024-01-22 16:39] LABS: Glucose - Point of Care 187 mg/dl (70-99)
[2024-01-22] MEDS: ALPHAGAN 0.2% EYE DROPS RIGHT EYE (18:08)
[2024-01-22] MEDS: CALCIUM GLUCONATE 130 MG IV (18:09)
[2024-01-22] MEDS: KCL 40 MEQ PO (18:09)
[2024-01-22] MEDS: NOVOLOG FLEXPEN-LOW RESISTANCE 1 UNITS SC (18:16)
--- NOTE | 2024-01-22 19:25 | PTCARENOTE ---
IVF infusing at 80ml/hr. VAT placed 2 extra lines this pm- Ca+rider infusing. K+ po suppliment given. Smith 40ml output only today. Freq stools (remains continent) small brown formed soft and some loose stool. Emotional support provided
throughout the day.
[2024-01-22] MEDS: ALPHAGAN 0.2% EYE DROPS 1 DROP RIGHT EYE (20:09)
[2024-01-22 22:05] LABS: Glucose - Point of Care 194 mg/dl (70-99)
[2024-01-22 23:52] LABS: Complement C3 134 mg/dl (88-165)
[2024-01-23] VITALS (30 sets, daily range): BP systolic 110–160; BP diastolic 54–128; BMI 31.6
[2024-01-23] MEDS: DILAUDID 0.5 MG IV ×2 (01:41→06:26)
[2024-01-23] MEDS: ZOSYN 50 IV ×3 (04:20→20:12)
--- NOTE | 2024-01-23 04:32 | PTCARENOTE ---
No acute events overnight. PRN dilaudid given for abd pain. Plan for dialysis at 0700.
[2024-01-23 04:34] LABS: % Basophils 0.2 % (0-2); % Eosinophils 0.4 % (0-6); % Immature Granulocytes 1.5 % (0-0.5); % Lymphocytes 16.7 % (20.5-51.1); % Monocytes 13.5 % (1.7-9.3); % Neutrophils 67.7 % (42.2-75.2); Absolute Immature Granulocytes 0.2 10^3/uL (0-0.05); Absolute Lymphocytes 1.9 10^3/uL (1.2-3.4); Absolute Monocytes 1.5 10^3/uL (0.1-0.6); Absolute Neutrophils 7.7 10^3/uL (1.4-6.5); Hematocrit 22.2 % (37.0-47.0); Hemoglobin 7.8 g/dL (12.0-16.0); Mean Corp Hgb Conc. 35.1 g/dL (33.0-37.0); Mean Corpuscular Hgb 29.5 pg (27.0-31.0); Mean Corpuscular Volume 84.1 fL (81.0-99.0); Mean Platelet Volume 9.4 fL (7.4-10.4); Nucleated Red Blood Cells % 0 %; Platelet Count 185 10^3/uL (130-400); Red Blood Cell Count 2.64 10^6/uL (4.20-5.40); Red Cell Dist. Width 14.6 % (11.5-14.5); White Blood Cell Count 11.4 10^3/uL (4.8-10.8)
--- NOTE | 2024-01-23 06:04 | PTCARENOTE ---
Patient placed on 2 liters NC while asleep.
[2024-01-23 07:54] LABS: Glucose - Point of Care 169 mg/dl (70-99)
[2024-01-23] MEDS: NOVOLOG FLEXPEN-LOW RESISTANCE 1 UNITS SC (08:23)
[2024-01-23] MEDS: ALPHAGAN 0.2% EYE DROPS 1 DROP RIGHT EYE ×2 (08:24→20:06)
[2024-01-23] MEDS: HEPARIN 5000 UNITS SC ×2 (08:25→20:10)
[2024-01-23] MEDS: HEPARIN 500 UNITS IV ×2 (08:25→09:25)
[2024-01-23] MEDS: TIMOPTIC 0.5% OPHTHALMIC SOLUTION 1 DROP RIGHT EYE (08:25)
--- NOTE | 2024-01-23 08:26 | W.PN.GI.CBS2 ---
Today's Communication / Plan
-
start budesonide, start LR diet
Assessment / Plan
-
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 She had follow up with
Dr. Feldman and with hx multiple medical issue as declined colonoscopy in past 10 years. She related she use Lialda for per colitis PRN. She will have flare about every 6 months and take 1-2 weeks of therapy. She started last Saturday with diarrhea
and started Lialda 2.4 gram tablet then diarrhea and mucous continued. She spoke with Dr. Nuñez her PCP on and recommended increase dose to 4.8 grams daily. On Saturday she was noted with shaking chill while at PT but recall BP stable
at 118/52 and 130/74 during therapy session. She persisted to have abdominal pain and diarrhea but not large volumes and PCP recommended CT and abx. She completed CT without contrast 01/20 with moderate colitis of sigmoid colon infectious vs
inflammatory and directed to ER. On admission noted with WBC 19.7, hbg 9.3, Na 132, co2 9, BUN 55, creat 7.1.
-colitis with hx longstanding Ulcerative colitis Lialda use PRN
-diarrhea
-[place] with hx CKD
-metabolic acidosis
-leukocytosis
-anemia
-shaking chills prior to admission
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
other medical problems:
-HTN
-CAD
--DM on Jardiance prior to admission
-bladder CA
-skin CA
-hx CEA
PLAN:
symptoms of diarrhea with mucus in her stool nonbloody for the past 1 week with severe dehydration also from decreased p.o. intake with [place] and metabolic acidosis.�
Unclear if her symptoms are related to flare or if it was related to infectious colitis or ischemic colitis.�symptoms persist on antibiotics will start her on budesonide
If symptoms do not improve on the budesonide will start her on prednisone and may also need a flexible sigmoidoscopy with biopsies
Stool cultures are pending, negative for norovirus, C. difficile antigen positive but toxin negative, fecal Gallo pending, doubt HUS/EHEC her diarrhea is nonbloody,CRP is 224.
stop Lialda for now since cannot rule out worsening renal function from Lialda also.
unfortunately her last colonoscopy was in 2012 and patient had refused colonoscopy after that because of her underlying comorbidities.� So unclear if she had active UC or was in remission prior
Noted input from renal for renal biopsy after Plavix washout and to be started on hemodialysis
Subjective
Subjective
Date of Service: January 23, 2024
Starting hemodialysis today per renal. She still continues to have watery diarrhea with some mucus no blood in the stool no vomiting no abdominal pain
Objective
Data Reviewed
Laboratory Data:
Laboratory Results
01/23/24 04:19
Laboratory Results
Magnesium 2.5 mg/dl (1.6-2.3) H 01/22/24 03:53
Total Bilirubin 0.6 mg/dl (0.2-1.3) 01/21/24 18:20
AST 31 U/L (14-36) 01/21/24 18:20
ALT 18 U/L (0-35) 01/21/24 18:20
Alkaline Phosphatase 94 U/L (38-126) 01/21/24 18:20
Vital Signs and I&O:
Vital Signs
Temp Pulse Resp BP Pulse Ox
98.4 F 81 17 132/55 100
01/23/24 07:30 01/23/24 07:14 01/23/24 07:14 01/23/24 07:14 01/23/24 07:14
I&O
01/22/24 01/23/24 01/24/24
06:59 06:59 06:59
Intake Total 925 / 925 3150 / 3150
Output Total 115 / 115
Balance 925 / 925 3035 / 303
Physical Exam
Physical Exam
Cardiology: Normal Sinus Rhythm
Pulmonary: Clear
GI: Soft, Non Distended, Non Tender and Normal Bowel Sounds
[2024-01-23] MEDS: MANNITOL 12.5 GRAMS IV ×2 (08:40→09:35)
[2024-01-23] MEDS: RETACRIT 8000 UNITS IV (09:01)
[2024-01-23 09:32] LABS: ALT (SGPT) 34 U/L (0-35); AST (SGOT) 72 U/L (14-36); Albumin 2.8 g/dl (3.5-5.0); Alkaline Phosphatase 134 U/L (38-126); Blood Urea Nitrogen 56 mg/dl (7-17); Calcium 7.2 mg/dl (8.4-10.2); Carbon Dioxide 23 mmol/L (22-30); Chloride 95 mmol/L (98-107); Estimated Creatinine Clearance 5 ml/min; Glucose 149 mg/dl (70-99); Iron 42 ug/dl (37-170); Magnesium 2.2 mg/dl (1.6-2.3); Phosphorus 6.3 mg/dl (2.5-4.5); Potassium 2.9 mmol/L (3.5-5.1); Sodium 131 mmol/L (135-145); Total Bilirubin 0.7 mg/dl (0.2-1.3); Total Protein 5.4 g/dl (6.3-8.2); eGFR 4.22
[2024-01-23 09:39] LABS: Percent Saturation 20 % (20-50); Total Iron Binding Capacity 204 ug/dl (265-497)
--- NOTE | 2024-01-23 09:55 | PTCARENOTE ---
Addendum entered by Sandra Oliva RN 01/23/24 10:05:
Dr Saunders also made aware of H&H 7.8/22.2; no transfusion being ordered at this time.
Original Note:
Assumed care of patient at beginning of this shift from previous RN with 2L n/c in use as patient's oxygen level dropped overnight when sleeping. Patient weaned to RA with POx 96%; no c/o sob. Currently receiving HD. Dr Saunders up to see patient and
made aware K+2.9 and Cr 8.7. Patient receiving D5W with 150meq HCO3 which is almost complete and not renewed; reviewed with Dr Saunders who stated IVF may be d/c'd when infusion complete. See worklist for full assessment and vital signs; see MAR for
med administration.
[2024-01-23] MEDS: HEPARIN 2200 UNITS INTRACATH (10:19)
--- NOTE | 2024-01-23 10:23 | W.PN.NEPH.HD ---
Assessment
-
pt seen during HD
vitals stable
no UF
ok to d/c IVF since euvolemic
remains anuric with anne, U CPR 30gm/gm of cr of anuric sample
await serologies and paraprotein w/u, complements normal
biopsy next week after plavix wash out
temp catheter function fine
monitor h/h. high dose AMRITA, prn trasnfusion
Progress Note - Hemodialysis
-
Date of Service: January 23, 2024
Duration: 2 hours
Potassium Bath: 4
Calcium Bath: 3
Opti-Dialyzer: 160
Ultrafiltration: Other (0)
Blood Flow: 250
Dialysate Flow: Other (500)
Heparin: yesx2
EPO: 8000
[2024-01-23] MEDS: ENTOCORT EC 9 MG PO (10:28)
[2024-01-23] MEDS: NOVOLOG FLEXPEN-LOW RESISTANCE SC ×2 (11:49→16:38)
[2024-01-23 11:55] LABS: Glucose - Point of Care 121 mg/dl (70-99)
[2024-01-23] MEDS: TRUSOPT 2% OPHTHALMIC SOLUTION 1 DROP RIGHT EYE ×2 (12:30→20:08)
--- NOTE | 2024-01-23 16:12 | W.PN.HOSP.TC ---
Today's Communication/Plan
-
IV antibiotics.
Budesonide.
HD
Assessment / Plan
Assessment / Plan
A/P:� Patient is an 83y F with PMH significant for ASCVD, HTN and ulcerative colitis who presents to ED complaining of abdominal pain and diarrhea x 1 week.
Impression:
Sigmoid colitis.
Acute kidney failure
Acute severe metabolic acidosis.
Conditions prior to admission:
Ulcerative colitis
CKD stage IIIa baseline creatinine 1.4.
Essential hypertension baseline ASCVD.
Diabetes type 2.
Plan
Sigmoid Colitis: Differential ulcerative colitis flareup versus infectious, versus ischemic
Ulcerative Colitis
�- Watery stool with mucus x 1 week - decreasing in frequency - with CT scan 01/20 showing sigmoid colitis.
�- Only started on abx 24 hours ago.
�- High risk for ischemic colitis given history of vascular disease, etc.
�- Unable to do CTA, etc secondary to marked renal impairment (see below).
-Stool cultures pending. Stool for C. difficile negative for toxin. Antigen positive
�- IV abx for now.� Monitor response closely.
�-Initiated on budesonide and hydrocortisone enema on
�- Follow clinical status, serial lactate levels, etc.
�
[place]
Anion Gap Metabolic Acidosis
Elevated serum acetone level possibly in the settings of SGLT 2 inhibitor
- Nephrology input appreciated
-[place] Multifactorial
-Intake of ACEI and Jardiance for years leading to Acute Tubular Necrosis
-Kidney biopsy to rule out Glomerular etiologies. Plavix has been on hold with the last dose on 01/22
�- Likely secondary to hypovolemia +/- hypotension / ATN.
�-Given anuria, rising creatinine, persistent acidosis initiated on hemodialysis on (temporary HD catheter placed by [facility] on 01/22)
Benign Hypertension
�- Hold all antihypertensive medications acutely.
�- Discontinue SGLT2 inhibitor.
ASCVD
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
�- Hold BP meds as noted above. Monitor hemodynamics with onset of HD.
�- IVF support / avoid hypotension.
DM-II
Suspect lactic acidosis possibly secondary to euglycemic DKA with elevated beta hydroxybutyrate level in the settings of SGLT2 inhibitor
�- Stable.�discontinue Jardiance
�- Follow glucose and cover with SSI as needed.
�- A1C 6.9
DVT Prophylaxis:� Lovenox
Code Status:� Full
Anticipated Discharge: > 48 hours
Subjective/Interval History
-
Date of Service: January 23, 2024
Objective Data
-
Labs:
Laboratory Results
01/23/24 01/23/24
04:19 08:16
WBC 11.4 H
Hgb 7.8 L
Hct 22.2 L
Plt Count 185
Sodium 131 L
Potassium 2.9 L
Chloride 95 L
Carbon Dioxide 23
BUN 56 H
Creatinine 8.7 H*
Glucose 149 H
Calcium 7.2 L
Total Bilirubin 0.7
AST 72 H
ALT 34
Alkaline Phosphatase 134 H
Vital Signs:
Vital Signs
Temp Pulse Resp BP Pulse Ox
98.8 F 80 16 143/68 95
01/23/24 15:50 01/23/24 13:00 01/23/24 13:00 01/23/24 13:00 01/23/24 12:00
I&O
01/22/24 01/23/24 01/24/24
06:59 06:59 06:59
Intake Total 925 / 925 3150 / 3150 100 / 100
Output Total 115 / 115
Balance 925 / 925 3035 / 3035 100 / 100
Physical Exam
-
General: Well Developed and No Apparent Distress
HEENT: Normocephalic, Atraumatic and Moist Mucous Membranes
Respiratory: Clear to Auscultation
Cardiac: Regular Rhythm and S1/S2; Negative Murmur, Rub or Gallop
GI: Soft, Nontender, Nondistended and Normal Bowel Sounds; Negative Organomegaly
Rectal: Deferred by Provider
Musculoskeletal: No Clubbing, No Cyanosis and No Edema
Skin: Negative Rash
Neuro: Awake, Alert, Oriented, AO x 3 and Nonfocal/Grossly Intact
[2024-01-23 16:37] LABS: Glucose - Point of Care 149 mg/dl (70-99)
[2024-01-23 21:04] LABS: Hepatitis B Surface Antigen Negative (Negative)
[2024-01-23 21:21] LABS: Hepatitis B Core Ab, Total Negative (Negative); Hepatitis B Surface Antibody Negative; Hepatitis C Antibody Negative (Negative)
[2024-01-23] MEDS: COLOCORT/CORTENEMA 60 ML RECTAL (21:37)
[2024-01-23] MEDS: XALATAN OPHTHALMIC SOLUTION 1 DROP RIGHT EYE (21:38)
[2024-01-23 21:39] LABS: Glucose - Point of Care 135 mg/dl (70-99)
[2024-01-24] VITALS (27 sets, daily range): BP systolic 129–184; BP diastolic 66–91; PULSE 82–83; O2SAT 95–96; BMI 32.0
[2024-01-24] MEDS: ZOSYN 50 IV ×2 (04:25→11:50)
--- NOTE | 2024-01-24 05:41 | PTCARENOTE ---
No acute changes overnight. Pt remains having loose BM's, frequency has slowed down however since receiving enema last PM. Pt maintained SATs above 95% overnight while sleeping on RA. Pt has anne cath and to begin 24/HR urine collection @6am
01/24/24.
[2024-01-24 07:30] LABS: Glucose - Point of Care 120 mg/dl (70-99)
[2024-01-24] MEDS: NOVOLOG FLEXPEN-LOW RESISTANCE SC ×2 (07:52→13:45)
[2024-01-24] MEDS: HEPARIN 500 UNITS IV ×2 (08:05→09:05)
[2024-01-24] MEDS: FERRLECIT 125 MG IV (08:40)
[2024-01-24] MEDS: RETACRIT 10000 UNITS IV (08:41)
[2024-01-24] MEDS: FLEXBUMIN 25% FOR HEMODIALYSIS 12.5 GRAMS IV ×2 (08:41→09:48)
[2024-01-24] MEDS: MANNITOL 12.5 GRAMS IV ×2 (08:41→09:48)
[2024-01-24 08:49] LABS: Blood Urea Nitrogen 42 mg/dl (7-17); Calcium 8.5 mg/dl (8.4-10.2); Carbon Dioxide 22 mmol/L (22-30); Chloride 96 mmol/L (98-107); Estimated Creatinine Clearance 6 ml/min; Glucose 99 mg/dl (70-99); Potassium 3.6 mmol/L (3.5-5.1); Sodium 132 mmol/L (135-145); eGFR 5.04
[2024-01-24] MEDS: HEPARIN 5000 UNITS SC ×2 (09:24→20:20)
[2024-01-24] MEDS: ALPHAGAN 0.2% EYE DROPS 1 DROP RIGHT EYE ×2 (09:25→20:24)
[2024-01-24] MEDS: TIMOPTIC 0.5% OPHTHALMIC SOLUTION 1 DROP RIGHT EYE (09:25)
[2024-01-24] MEDS: TRUSOPT 2% OPHTHALMIC SOLUTION 1 DROP RIGHT EYE ×2 (09:25→20:23)
[2024-01-24 10:46] LABS: Glucose - Point of Care 88 mg/dl (70-99)
[2024-01-24] MEDS: HEPARIN 2200 UNITS INTRACATH (10:52)
--- NOTE | 2024-01-24 11:11 | CM ---
Patient with Dx Sigmoid colitis, [place]. Room air. Clear liquids. Receiving HD via temporary HD catheter. Patient anuric, plan biopsy next week. Receiving IV Zosyn. PT & OT held today.
Plan await nephrology decision if will need outpatient HD.
Plan follow up after PT/OT Evals.
[2024-01-24] MEDS: ENTOCORT EC 9 MG PO (11:50)
--- NOTE | 2024-01-24 11:57 | W.PN.HOSP.TC ---
Addendum entered and electronically signed by Nnamdi Aquino MD 01/24/24 17:43:
Patient seen and examined
Discussed with resident
Discussed with gastroenterology and nephrology.
Impression/plan:
Acute left-sided colitis
Differential diagnosis infectious, less likely, ulcerative colitis flare, versus ischemic.
Stool cultures negative to date.
Negative for norovirus.
C. difficile toxin negative antigen positive.
Has been on Zosyn since admission now with better formed stools.
Given C. difficile testing will change antibiotics to levofloxacin/Flagyl. Start oral vancomycin.
Would be low threshold to stop levofloxacin over the next 24 to 48 hours if remains of stool cultures negative.
Initiated on corticosteroids by GI
Acute kidney injury.
Anuria
Severe metabolic acidosis.
Initiated on hemodialysis.
Continue follow-up creatinine, urine output, electrolytes.
Has been off Plavix pending renal biopsy next week.
Original Note:
Today's Communication/Plan
-
Continue Hemodialysis
Monitor Urine Output
Monitor Cre
Continue steroids for flareup of UC
Assessment / Plan
Assessment / Plan
A/P:� Patient is an 83y F with PMH significant for ASCVD, HTN and ulcerative colitis who presents to ED complaining of abdominal pain and diarrhea x 1 week.
Impression:
Sigmoid colitis.
Acute kidney failure
Acute severe metabolic acidosis.
Conditions prior to admission:
Ulcerative colitis
CKD stage IIIa baseline creatinine 1.4.
Essential hypertension baseline ASCVD.
Diabetes type 2.
Plan
Sigmoid Colitis: Differential ulcerative colitis flareup versus infectious, versus ischemic
Ulcerative Colitis
�- Watery stool with mucus x 1 week - decreasing in frequency - with CT scan 01/20 showing sigmoid colitis.
�- Only started on abx 24 hours ago.
�- High risk for ischemic colitis given history of vascular disease, etc.
�- Unable to do CTA, etc secondary to marked renal impairment (see below).
-Stool cultures pending. Stool for C. difficile negative for toxin. Antigen positive
�- IV abx for now.� Monitor response closely.
�-Initiated on budesonide and hydrocortisone enema on
�- Follow clinical status, serial lactate levels, etc.
�
[place]
Anion Gap Metabolic Acidosis
Elevated serum acetone level possibly in the settings of SGLT 2 inhibitor
- Nephrology input appreciated
-[place] Multifactorial
-Intake of ACEI and Jardiance for years leading to Acute Tubular Necrosis
-Kidney biopsy to rule out Glomerular etiologies. Plavix has been on hold with the last dose on 01/22
�- Likely secondary to hypovolemia +/- hypotension / ATN.
�-Given anuria, rising creatinine, persistent acidosis initiated on hemodialysis on (temporary HD catheter placed by [facility] on 01/22)
Benign Hypertension
�- Hold all antihypertensive medications acutely.
�- Discontinue SGLT2 inhibitor.
ASCVD
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
�- Hold BP meds as noted above. Monitor hemodynamics with onset of HD.
�- IVF support / avoid hypotension.
DM-II
Suspect lactic acidosis possibly secondary to euglycemic DKA with elevated beta hydroxybutyrate level in the settings of SGLT2 inhibitor
�- Stable.�discontinue Jardiance
�- Follow glucose and cover with SSI as needed.
�- A1C 6.9
DVT Prophylaxis:� Lovenox
Code Status:� Full
Anticipated Discharge: > 48 hours
Subjective/Interval History
-
Date of Service: January 24, 2024
Objective Data
-
Labs:
Laboratory Results
01/24/24
07:57
Sodium 132 L
Potassium 3.6
Chloride 96 L
Carbon Dioxide 22
BUN 42 H
Creatinine 7.5 H*
Glucose 99
Calcium 8.5
Vital Signs:
Vital Signs
Temp Pulse Resp BP Pulse Ox
98.0 F 65 13 163/76 97
01/24/24 11:09 01/24/24 09:45 01/24/24 09:45 01/24/24 09:45 01/24/24 10:08
I&O
01/23/24 01/24/24 01/25/24
06:59 06:59 06:59
Intake Total 3150 / 3150 340 / 340
Output Total 115 / 115
Balance 3035 / 3035 340 / 340
Physical Exam
-
General: Well Developed and No Apparent Distress
HEENT: Normocephalic, Atraumatic and Moist Mucous Membranes
Respiratory: Clear to Auscultation
Cardiac: Regular Rhythm and S1/S2; Negative Murmur, Rub or Gallop
GI: Soft, Nontender, Nondistended and Normal Bowel Sounds; Negative Organomegaly
Rectal: Deferred by Provider
Musculoskeletal: No Clubbing, No Cyanosis and No Edema
Skin: Negative Rash
Neuro: Nonfocal/Grossly Intact
--- NOTE | 2024-01-24 13:33 | W.PN.NEPH.HD ---
Assessment
-
Seen on HD no complaints. VSS, access ok
HD tomorrow
Progress Note - Hemodialysis
-
Date of Service: January 24, 2024
Duration: 45 minutes and 2 hours
Potassium Bath: 3
Calcium Bath: 2.5
Opti-Dialyzer: 160
Ultrafiltration: Other (no)
Blood Flow: 300
Dialysate Flow: 600
Heparin: 500x2
EPO: [id number] units
--- NOTE | 2024-01-24 15:05 | W.PN.GI.CBS2 ---
Addendum entered and electronically signed by Rocael Borrego MD 01/24/24 18:00:
I saw and examined the patient.
The CAR WASH ATTENDANT or PA's note was reviewed and I agree with the note.
Comment:
Pt feeling better no diarrhea in last 3 hours
abd: soft
impression
UC
ARF on CKD
diarrea
abd pain
plan:
continue budesonide/HC enema
continue new antibiotics
renal diet
continue new antibx regimen
Original Note:
Today's Communication / Plan
-
abdominal pain improved still with diarrhea
will review abx with Dr. Aquino as Zosyn may be adding to diarrhea-- advised Levaquin 3 times per week after DH with pharmacy assist for dosing and Flagyl 500mg Q8H
also c-diff ag + tox neg
fecal kuldeep pro pending
cont Budesonide/ HC enema as currently off mesalamine agent
reviewed with Plavix hold for renal bx about colonoscopy as has 10 + years ago and held with concern of being off Plavix for procedure -- pt declines to proceed with current multiple other issues
will allow renal diet
nursing for education on renal diet
will follow
Assessment / Plan
-
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 She had follow up with
Dr. Feldman and with hx multiple medical issue as declined colonoscopy in past 10 years. She related she use Lialda for per colitis PRN. She will have flare about every 6 months and take 1-2 weeks of therapy. She started last Saturday with diarrhea
and started Lialda 2.4 gram tablet then diarrhea and mucous continued. She spoke with Dr. Nuñez her PCP on and recommended increase dose to 4.8 grams daily. On Saturday she was noted with shaking chill while at PT but recall BP stable
at 118/52 and 130/74 during therapy session. She persisted to have abdominal pain and diarrhea but not large volumes and PCP recommended CT and abx. She completed CT without contrast 01/20 with moderate colitis of sigmoid colon infectious vs
inflammatory and directed to ER. On admission noted with WBC 19.7, hbg 9.3, Na 132, co2 9, BUN 55, creat 7.1.
-colitis with hx longstanding Ulcerative colitis Lialda use PRN
-diarrhea
-cdiff ag + tox neg
-[place] with hx CKD
-metabolic acidosis
-leukocytosis
-anemia
-shaking chills prior to admission
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
other medical problems:
-HTN
-CAD
-DM on Jardiance prior to admission
-bladder CA
-skin CA
-hx CEA
PLAN:
abdominal pain improved still with diarrhea
will review abx with Dr. Aquino as Zosyn may be adding to diarrhea-- advised Levaquin 3 times per week after DH with pharmacy assist for dosing and Flagyl 500mg Q8H
also c-diff ag + tox neg
fecal kuldeep pro pending
cont Budesonide/ HC enema as currently off mesalamine agent
reviewed with Plavix hold for renal bx about colonoscopy as has 10 + years ago and held with concern of being off Plavix for procedure -- pt declines to proceed with current multiple other issues
will allow renal diet
nursing for education on renal diet
will follow
Subjective
Subjective
Date of Service: January 24, 2024
abdominal pain improving, still with some diarrhea on clear diet
Objective
Data Reviewed
Laboratory Data:
Laboratory Results
01/23/24 04:19
01/24/24 07:57
Laboratory Results
Phosphorus 6.3 mg/dl (2.5-4.5) H 01/23/24 08:16
Magnesium 2.2 mg/dl (1.6-2.3) 01/23/24 08:16
Total Bilirubin 0.7 mg/dl (0.2-1.3) 01/23/24 08:16
AST 72 U/L (14-36) H 01/23/24 08:16
ALT 34 U/L (0-35) 01/23/24 08:16
Alkaline Phosphatase 134 U/L (38-126) H 01/23/24 08:16
Vital Signs and I&O:
Vital Signs
Temp Pulse Resp BP Pulse Ox
98.0 F 65 13 163/76 97
01/24/24 11:09 01/24/24 09:45 01/24/24 09:45 01/24/24 09:45 01/24/24 10:08
I&O
01/23/24 01/24/24 01/25/24
06:59 06:59 06:59
Intake Total 3150 / 3150 340 / 340 300 / 300
Output Total 115 / 115
Balance 3035 / 3035 340 / 340 300 / 300
Physical Exam
Physical Exam
HEENT: Anicteric and Moist mucous membranes
Cardiology: Normal Sinus Rhythm
Pulmonary: Clear
GI: Soft, Non Distended and Non Tender
Extremities: No Edema
Neuro: Non Focal
[2024-01-24] MEDS: NOVOLOG FLEXPEN-LOW RESISTANCE 1 UNITS SC (17:03)
[2024-01-24] MEDS: FLAGYL 500 MG 100 IV (17:03)
[2024-01-24 17:08] LABS: Glucose - Point of Care 170 mg/dl (70-99)
[2024-01-24] MEDS: LEVAQUIN 100 IV (18:28)
[2024-01-24] MEDS: FIRVANQ 125 MG PO (18:28)
[2024-01-24] MEDS: COLOCORT/CORTENEMA 60 ML RECTAL (22:26)
[2024-01-24] MEDS: XALATAN OPHTHALMIC SOLUTION 1 DROP RIGHT EYE (22:26)
[2024-01-24 22:29] LABS: Glucose - Point of Care 126 mg/dl (70-99)
[2024-01-25] VITALS (26 sets, daily range): BP systolic 107–187; BP diastolic 28–101; BMI 31.0
[2024-01-25] MEDS: FLAGYL 500 MG 100 IV ×3 (00:18→16:01)
[2024-01-25] MEDS: FIRVANQ 125 MG PO ×4 (00:18→18:26)
[2024-01-25 02:54] LABS: ANA, IgG Reflex to HEp-2 None Detected (None Detected)
--- NOTE | 2024-01-25 05:21 | PTCARENOTE ---
Pts BMs have significantly decresed overnight. Pt had 2 loose Bms throughout the shift. Pt states her stomach is 'feeling better'. Stomach is round audible bowl sounds. 24 hr urine collection to conclude this AM 01/25/24. Pt scheduled for dialysis
Saturday AM. No acute changes overnight.
[2024-01-25] MEDS: HEPARIN 500 UNITS IV ×2 (07:55→08:55)
[2024-01-25 08:00] LABS: Hematocrit 22.5 % (37.0-47.0); Hemoglobin 7.7 g/dL (12.0-16.0); Mean Corp Hgb Conc. 34.2 g/dL (33.0-37.0); Mean Corpuscular Hgb 29.6 pg (27.0-31.0); Mean Corpuscular Volume 86.5 fL (81.0-99.0); Mean Platelet Volume 9.1 fL (7.4-10.4); Platelet Count 174 10^3/uL (130-400); Red Cell Dist. Width 14.7 % (11.5-14.5); White Blood Cell Count 10.5 10^3/uL (4.8-10.8)
[2024-01-25] MEDS: MANNITOL 12.5 GRAMS IV ×2 (08:10→09:47)
--- NOTE | 2024-01-25 08:26 | W.PN.HOSP.TC ---
Today's Communication/Plan
-
adjust BP meds
consider transfusion
OOB/PT/OT--currently recommending SNF at d/c
Assessment / Plan
Assessment / Plan
A/P:� Patient is an 83y F with PMH significant for ASCVD, HTN and ulcerative colitis who presents to ED complaining of abdominal pain and diarrhea x 1 week.
Impression:
Sigmoid colitis.
Acute kidney failure
Acute severe metabolic acidosis.
Conditions prior to admission:
Ulcerative colitis
CKD stage IIIa baseline creatinine 1.4.
Essential hypertension baseline ASCVD.
Diabetes type 2.
Plan
01/25/24 BP running high, will need med adjustment--HGB 7.7 likely anemia of chronic disease--consider transfusion
Sigmoid Colitis: Differential ulcerative colitis flareup versus infectious, versus ischemic
Ulcerative Colitis
�- Watery stool with mucus x 1 week - decreasing in frequency - with CT scan 01/20 showing sigmoid colitis.
�- started on abx
�- High risk for ischemic colitis given history of vascular disease, etc.
�- Unable to do CTA, etc secondary to marked renal impairment (see below).
-Stool cultures pending. Stool for C. difficile negative for toxin. Antigen positive--on oral vanco and abx changed to levo/flagyl
�- IV abx for now.� Monitor response closely.
�-Initiated on budesonide and hydrocortisone enema on
�- Follow clinical status, serial lactate levels, etc.
�
[place]
Anion Gap Metabolic Acidosis
Elevated serum acetone level possibly in the settings of SGLT 2 inhibitor
- Nephrology input appreciated
-[place] Multifactorial
-Intake of ACEI and Jardiance for years leading to Acute Tubular Necrosis
-Kidney biopsy to rule out Glomerular etiologies next week. Plavix has been on hold with the last dose on 01/22
�- Likely secondary to hypovolemia +/- hypotension / ATN.
�-Given anuria, rising creatinine, persistent acidosis initiated on hemodialysis on (temporary HD catheter placed by [facility] on 01/22)
Benign Hypertension
�- Hold all antihypertensive medications acutely--would restart as BP running high
�- Discontinue SGLT2 inhibitor.
ASCVD
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
�- Hold BP meds as noted above. Monitor hemodynamics with onset of HD.
�- IVF support / avoid hypotension.
DM-II
Suspect lactic acidosis possibly secondary to euglycemic DKA with elevated beta hydroxybutyrate level in the settings of SGLT2 inhibitor
�- Stable.�discontinue Jardiance
�- Follow glucose and cover with SSI as needed.
�- A1C 6.9
DVT Prophylaxis:� Lovenox
Code Status:� Full
Anticipated Discharge: > 48 hours
Subjective/Interval History
-
Date of Service: January 25, 2024
pt without c/o--diarrhea improved
Objective Data
-
Labs:
Laboratory Results
01/25/24
07:37
WBC 10.5
Hgb 7.7 L
Hct 22.5 L
Plt Count 174
Sodium Pending
Potassium Pending
Chloride Pending
Carbon Dioxide Pending
BUN Pending
Creatinine Pending
Glucose Pending
Calcium Pending
Vital Signs:
max temp for 24 hours
01/25/24
02:58
Temp 99.0 F
Vital Signs
Temp Pulse Resp BP Pulse Ox
99.0 F 75 15 180/80 92
01/25/24 02:58 01/25/24 07:00 01/25/24 07:00 01/25/24 06:01 01/25/24 07:00
I&O
01/24/24 01/25/24 01/26/24
06:59 06:59 06:59
Intake Total 340 / 340 780 / 780
Balance 340 / 340 780 / 780
Review of Systems
-
All other systems: Reviewed and negative
Abdomen/GI: Reports Diarrhea (improving); Denies Abdominal Pain
Physical Exam
-
General: Well Developed, Well Nourished and No Apparent Distress
HEENT: Normocephalic, Atraumatic and Other (right eye blind with periorbital swelling); Negative Oxygen
Respiratory: Clear to Auscultation; Negative Wheezes or Rhonchi
Cardiac: Regular Rhythm and S1/S2; Negative Murmur
GI: Soft, Nontender, Nondistended and Normal Bowel Sounds
Musculoskeletal: No Clubbing, No Cyanosis and No Edema
Skin: Warm
Neuro: Awake
[2024-01-25 08:41] LABS: Glucose - Point of Care 119 mg/dl (70-99)
[2024-01-25] MEDS: NOVOLOG FLEXPEN-LOW RESISTANCE SC ×3 (08:44→18:06)
[2024-01-25 09:22] LABS: Blood Urea Nitrogen 28 mg/dl (7-17); Calcium 8.9 mg/dl (8.4-10.2); Carbon Dioxide 26 mmol/L (22-30); Chloride 96 mmol/L (98-107); Estimated Creatinine Clearance 8 ml/min; Glucose 130 mg/dl (70-99); Potassium 3.6 mmol/L (3.5-5.1); Sodium 131 mmol/L (135-145); eGFR 8.41
[2024-01-25] MEDS: ALPHAGAN 0.2% EYE DROPS 1 DROP RIGHT EYE ×2 (09:30→22:49)
[2024-01-25] MEDS: TIMOPTIC 0.5% OPHTHALMIC SOLUTION 1 DROP RIGHT EYE (09:31)
[2024-01-25] MEDS: TRUSOPT 2% OPHTHALMIC SOLUTION 1 DROP RIGHT EYE ×2 (09:32→22:49)
--- NOTE | 2024-01-25 09:57 | W.PN.NEPH.HD ---
Assessment
-
Seen on HD. no new complaints. VSS, access ok
planning for bx saturday
Progress Note - Hemodialysis
-
Date of Service: January 25, 2024
Duration: 3 hours
Potassium Bath: 3
Calcium Bath: 2.5
Opti-Dialyzer: 160
Ultrafiltration: Other (no)
Blood Flow: 350
Dialysate Flow: 600
Heparin: 500x2
EPO: 0
[2024-01-25 10:13] LABS: Absolute Neutrophils -Man Diff 6.6 10^3/uL (1.4-6.5); Band Neutrophils 5 % (0-3); Hypochromasia 2+; Lymphocytes 23 % (20-51); Monocytes 12 % (2-9); Myelocytes 2 % (-); Normal RBC Morphology No; Platelets Checked Yes; Segmented Neutrophils 58 % (42-75)
[2024-01-25 10:14] LABS: Ovalocytes 1+; Polychromasia 1+; Total Cells Counted 100
[2024-01-25 11:16] LABS: Glucose - Point of Care 89 mg/dl (70-99)
[2024-01-25] MEDS: HEPARIN 2200 UNITS INTRACATH (11:16)
[2024-01-25] MEDS: ENTOCORT EC 9 MG PO (11:32)
[2024-01-25] MEDS: TOPROL XL 50 MG PO (11:32)
--- NOTE | 2024-01-25 12:02 | W.PN.GI.CBS2 ---
Today's Communication / Plan
-
continue antibiotics
Assessment / Plan
-
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 She had follow up with
Dr. Feldman and with hx multiple medical issue as declined colonoscopy in past 10 years. She related she use Lialda for per colitis PRN. She will have flare about every 6 months and take 1-2 weeks of therapy. She started last Saturday with diarrhea
and started Lialda 2.4 gram tablet then diarrhea and mucous continued. She spoke with Dr. Nuñez her PCP on and recommended increase dose to 4.8 grams daily. On Saturday she was noted with shaking chill while at PT but recall BP stable
at 118/52 and 130/74 during therapy session. She persisted to have abdominal pain and diarrhea but not large volumes and PCP recommended CT and abx. She completed CT without contrast 01/20 with moderate colitis of sigmoid colon infectious vs
inflammatory and directed to ER. On admission noted with WBC 19.7, hbg 9.3, Na 132, co2 9, BUN 55, creat 7.1.
-colitis with hx longstanding Ulcerative colitis Lialda use PRN
-diarrhea
-cdiff ag + tox neg
-[place] with hx CKD
-metabolic acidosis
-leukocytosis
-anemia
-shaking chills prior to admission
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
other medical problems:
-HTN
-CAD
-DM on Jardiance prior to admission
-bladder CA
-skin CA
-hx CEA
PLAN:
continue antibiotics Levo/flagyl/vanco
continue budesonide
await stool fecal calprotectin
if worsens can check flex sig if pt agrees
continue nephrology f/u/dialysis
Subjective
Subjective
Date of Service: January 25, 2024
Pt with decreased diarrhea since antibiotics changed, has happened just after meals
Objective
Data Reviewed
Laboratory Data:
Laboratory Results
01/25/24 07:37
01/25/24 07:37
Laboratory Results
Phosphorus 6.3 mg/dl (2.5-4.5) H 01/23/24 08:16
Magnesium 2.2 mg/dl (1.6-2.3) 01/23/24 08:16
Total Bilirubin 0.7 mg/dl (0.2-1.3) 01/23/24 08:16
AST 72 U/L (14-36) H 01/23/24 08:16
ALT 34 U/L (0-35) 01/23/24 08:16
Alkaline Phosphatase 134 U/L (38-126) H 01/23/24 08:16
Vital Signs and I&O:
Vital Signs
Temp Pulse Resp BP Pulse Ox
98.1 F 75 15 180/76 92
01/25/24 07:00 01/25/24 11:32 01/25/24 07:00 01/25/24 11:32 01/25/24 07:00
I&O
01/24/24 01/25/24 01/26/24
06:59 06:59 06:59
Intake Total 340 / 340 780 / 780
Balance 340 / 340 780 / 780
Physical Exam
Physical Exam
HEENT: Anicteric
GI: Soft and Non Tender
Neuro: Non Focal
[2024-01-25] MEDS: HEPARIN 5000 UNITS SC ×2 (12:49→22:50)
--- NOTE | 2024-01-25 14:56 | PTCARENOTE ---
Patient is out of bed to chair, tolerating solid foods. No bowel movements so far this shift. Abdomen is soft, nontender, rounded. Normal bowel sounds. Patients blood pressure elevated after dialysis, Metoprolol administered, bp is now 107/87.
Patient is for transfer to telemetry.
--- NOTE | 2024-01-25 15:50 | PTCARENOTE ---
Report given to Juancho JO for transfer to room 334. Endorsed post void monitoring, anne removed at 3pm. Belongings packed up and sent with patient.
--- NOTE | 2024-01-25 15:53 | PTCARENOTE ---
Smith catheter removal discussed with Dr. Murphy. Smith discontinued and post void endorsed to new RN in report.
[2024-01-25 18:06] LABS: Glucose - Point of Care 207 mg/dl (70-99)
[2024-01-25 21:37] LABS: Glucose - Point of Care 196 mg/dl (70-99)
[2024-01-25] MEDS: XALATAN OPHTHALMIC SOLUTION 1 DROP RIGHT EYE (22:48)
[2024-01-25] MEDS: COLOCORT/CORTENEMA 60 ML RECTAL (22:50)
[2024-01-26] VITALS (7 sets, daily range): BP systolic 146–168; BP diastolic 67–78; BMI 31.5
[2024-01-26] MEDS: FIRVANQ 125 MG PO ×5 (00:38→23:11)
[2024-01-26] MEDS: FLAGYL 500 MG 100 IV ×4 (00:38→23:11)
[2024-01-26 02:03] LABS: Myeloperoxidase Antibody 0 AU/mL (0-19); Serine Protease-3, IgG 16 AU/mL (0-19)
[2024-01-26 07:18] LABS: Hematocrit 24.7 % (37.0-47.0); Hemoglobin 8.3 g/dL (12.0-16.0); Mean Corp Hgb Conc. 33.6 g/dL (33.0-37.0); Mean Corpuscular Hgb 29.6 pg (27.0-31.0); Mean Corpuscular Volume 88.2 fL (81.0-99.0); Mean Platelet Volume 9.8 fL (7.4-10.4); Platelet Count 220 10^3/uL (130-400); Red Cell Dist. Width 14.7 % (11.5-14.5); White Blood Cell Count 14.6 10^3/uL (4.8-10.8)
[2024-01-26 08:07] LABS: Blood Urea Nitrogen 18 mg/dl (7-17); Calcium 8.8 mg/dl (8.4-10.2); Carbon Dioxide 25 mmol/L (22-30); Chloride 98 mmol/L (98-107); Estimated Creatinine Clearance 11 ml/min; Glucose 144 mg/dl (70-99); Magnesium 1.9 mg/dl (1.6-2.3); Potassium 3.9 mmol/L (3.5-5.1); Sodium 131 mmol/L (135-145); eGFR 11.05
[2024-01-26] MEDS: NOVOLOG FLEXPEN-LOW RESISTANCE SC ×2 (08:15→16:41)
[2024-01-26] MEDS: ENTOCORT EC 9 MG PO (08:30)
[2024-01-26] MEDS: TOPROL XL 50 MG PO (08:30)
[2024-01-26] MEDS: HEPARIN 5000 UNITS SC ×2 (08:31→19:02)
[2024-01-26] MEDS: TRUSOPT 2% OPHTHALMIC SOLUTION 1 DROP RIGHT EYE ×2 (08:32→19:04)
[2024-01-26] MEDS: TIMOPTIC 0.5% OPHTHALMIC SOLUTION 1 DROP RIGHT EYE (08:32)
[2024-01-26] MEDS: ALPHAGAN 0.2% EYE DROPS 1 DROP RIGHT EYE ×2 (08:32→19:04)
--- NOTE | 2024-01-26 09:08 | W.PN.GI.CBS2 ---
Today's Communication / Plan
-
flex sig tomorrow
Assessment / Plan
-
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 She had follow up with
Dr. Feldman and with hx multiple medical issue as declined colonoscopy in past 10 years. She related she use Lialda for per colitis PRN. She will have flare about every 6 months and take 1-2 weeks of therapy. She started last Saturday with diarrhea
and started Lialda 2.4 gram tablet then diarrhea and mucous continued. She spoke with Dr. Nuñez her PCP on and recommended increase dose to 4.8 grams daily. On Saturday she was noted with shaking chill while at PT but recall BP stable
at 118/52 and 130/74 during therapy session. She persisted to have abdominal pain and diarrhea but not large volumes and PCP recommended CT and abx. She completed CT without contrast 01/20 with moderate colitis of sigmoid colon infectious vs
inflammatory and directed to ER. On admission noted with WBC 19.7, hbg 9.3, Na 132, co2 9, BUN 55, creat 7.1.
-colitis with hx longstanding Ulcerative colitis Lialda use PRN
-diarrhea
-cdiff ag + tox neg
-[place] with hx CKD
-metabolic acidosis
-leukocytosis
-anemia
-shaking chills prior to admission
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
other medical problems:
-HTN
-CAD
-DM on Jardiance prior to admission
-bladder CA
-skin CA
-hx CEA
PLAN:
- flex sig to evaluate if her ongoing diarrhea is due to uncontrolled UC (her CT scan only showed sigmoid thickening
- negative stool cultures
will do flex sig in am d/w Dr. Maldonado having dialysis tomorrow which will be after.
Subjective
Subjective
Date of Service: January 26, 2024
This patient has a history of ulcerative colitis and ongoing diarrhea which appears to have improved however not resolved.
Objective
Data Reviewed
Laboratory Data:
Laboratory Results
01/26/24 06:30
01/26/24 06:30
Laboratory Results
Phosphorus 6.3 mg/dl (2.5-4.5) H 01/23/24 08:16
Magnesium 1.9 mg/dl (1.6-2.3) 01/26/24 06:30
Total Bilirubin 0.7 mg/dl (0.2-1.3) 01/23/24 08:16
AST 72 U/L (14-36) H 01/23/24 08:16
ALT 34 U/L (0-35) 01/23/24 08:16
Alkaline Phosphatase 134 U/L (38-126) H 01/23/24 08:16
Vital Signs and I&O:
Vital Signs
Temp Pulse Resp BP Pulse Ox
97.9 F 67 18 168/75 99
01/26/24 07:39 01/26/24 07:39 01/26/24 07:39 01/26/24 07:39 01/26/24 07:39
I&O
01/25/24 01/26/24 01/27/24
06:59 06:59 06:59
Intake Total 780 / 780 580 / 580
Output Total 50 / 50
Balance 780 / 780 530 / 530
Physical Exam
Physical Exam
GI: Soft and Non Tender
--- NOTE | 2024-01-26 11:45 | W.PN.HOSP.TC ---
Today's Communication/Plan
-
flex sig in AM
HD in PM
renal biopsy Saturday
Assessment / Plan
Assessment / Plan
A/P:� Patient is an 83y F with PMH significant for ASCVD, HTN and ulcerative colitis who presents to ED complaining of abdominal pain and diarrhea x 1 week.
Impression:
Sigmoid colitis.
Acute kidney failure
Acute severe metabolic acidosis.
Conditions prior to admission:
Ulcerative colitis
CKD stage IIIa baseline creatinine 1.4.
Essential hypertension baseline ASCVD.
Diabetes type 2.
Plan
01/26/24 -- flex sig in AM, HD in PM, renal biopsy Saturday
01/25/24 -- BP running high, will need med adjustment--HGB 7.7 likely anemia of chronic disease--consider transfusion
Sigmoid Colitis: Differential ulcerative colitis flareup versus infectious, versus ischemic
Ulcerative Colitis
�- Watery stool with mucus x 1 week - decreasing in frequency - with CT scan 01/20 showing sigmoid colitis.
�- started on abx
�- High risk for ischemic colitis given history of vascular disease, etc.
�- Unable to do CTA, etc secondary to marked renal impairment (see below).
-Stool cultures pending. Stool for C. difficile negative for toxin. Antigen positive--on oral vanco and abx changed to levo/flagyl
�- IV abx for now.� Monitor response closely.
�-Initiated on budesonide and hydrocortisone enema on
�- Follow clinical status, serial lactate levels, etc.
�
[place]
Anion Gap Metabolic Acidosis
Elevated serum acetone level possibly in the settings of SGLT 2 inhibitor
- Nephrology input appreciated
-[place] Multifactorial
-Intake of ACEI and Jardiance for years leading to Acute Tubular Necrosis
-Kidney biopsy to rule out Glomerular etiologies next week. Plavix has been on hold with the last dose on 01/22
�- Likely secondary to hypovolemia +/- hypotension / ATN.
�-Given anuria, rising creatinine, persistent acidosis initiated on hemodialysis on (temporary HD catheter placed by [facility] on 01/22)
Benign Hypertension
�- Hold all antihypertensive medications acutely--would restart as BP running high
�- Discontinue SGLT2 inhibitor.
ASCVD
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
�- Hold BP meds as noted above. Monitor hemodynamics with onset of HD.
�- IVF support / avoid hypotension.
DM-II
Suspect lactic acidosis possibly secondary to euglycemic DKA with elevated beta hydroxybutyrate level in the settings of SGLT2 inhibitor
�- Stable.�discontinue Jardiance
�- Follow glucose and cover with SSI as needed.
�- A1C 6.9
DVT Prophylaxis:� Lovenox
Code Status:� Full
Anticipated Discharge: > 48 hours
Subjective/Interval History
-
Date of Service: January 26, 2024
pt having lunch--no c/o
Objective Data
-
Labs:
Laboratory Results
01/26/24
06:30
WBC 14.6 H
Hgb 8.3 L
Hct 24.7 L
Plt Count 220 D
Sodium 131 L
Potassium 3.9
Chloride 98
Carbon Dioxide 25
BUN 18 H
Creatinine 3.9 H
Glucose 144 H
Calcium 8.8
Vital Signs:
max temp for 24 hours
01/26/24
03:15
Temp 98.4 F
Vital Signs
Temp Pulse Resp BP Pulse Ox
97.5 F 62 18 163/75 97
01/26/24 11:04 01/26/24 11:04 01/26/24 11:04 01/26/24 11:04 01/26/24 11:04
I&O
01/25/24 01/26/24 01/27/24
06:59 06:59 06:59
Intake Total 780 / 780 580 / 580
Output Total 50 / 50
Balance 780 / 780 530 / 530
Review of Systems
-
All other systems: Reviewed and negative
Physical Exam
-
General: Well Developed, Well Nourished and No Apparent Distress
HEENT: Normocephalic, Atraumatic and Other (periorbital swelling right eye--blind right eye)
Respiratory: Clear to Auscultation; Negative Wheezes or Rhonchi
Cardiac: Regular Rhythm and S1/S2; Negative Murmur
GI: Soft, Nontender, Nondistended and Normal Bowel Sounds
Musculoskeletal: No Clubbing, No Cyanosis and No Edema
Neuro: Awake and Alert
Psych: Calm
[2024-01-26 11:48] LABS: Albumin 2.79 g/dL (3.75-5.01); Alpha 1 Globulin 0.49 g/dL (0.19-0.46); Alpha 2 Globulin 0.99 g/dL (0.48-1.05); SPEP IFE Reflex Not Done; Total Protein-Electrophoresis 5.8 g/dL (6.3-8.2)
[2024-01-26] MEDS: NORVASC 5 MG PO (12:29)
[2024-01-26 13:14] LABS: Glucose - Point of Care 195 mg/dl (70-99)
[2024-01-26] MEDS: NOVOLOG FLEXPEN-LOW RESISTANCE 1 UNITS SC (13:18)
[2024-01-26 15:54] LABS: Calprotectin, Fecal 1110 ug/g (<=49)
--- NOTE | 2024-01-26 15:54 | W.PN.NEPH.PH ---
Today's Communication / Plan
-
HD tomorrow
Assessment/Plan
-
IMP:
Sigmoid Colitis
Ulcerative Colitis
Severe [place]-cr 1 in 2020
severe Anion Gap Metabolic Acidosis
Anemia
Leucocytosis
Hyponatremia
Benign Hypertension
CAD s/p stent 2017
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
DM-II
bladder ca
Plan:
-for flex sig tomorrow
-HD tomorrow afternoon
-renal Bx saturday
-
-
Date of Service: January 26, 2024
CC / HPI / ROS
-
Chief Complaint:
[place]
History of Present Illness:
BP stable
tolerated HD yesterday
hgb up to 8.3
Review of Systems:
no CP/SOB
no UOP
Labs
-
Labs:
WBC 14.6 10^3/uL (4.8-10.8) H 01/26/24 06:30
RBC 2.80 10^6/uL (4.20-5.40) L 01/26/24 06:30
Hgb 8.3 g/dL (12.0-16.0) L 01/26/24 06:30
Hct 24.7 % (37.0-47.0) L 01/26/24 06:30
Plt Count 220 10^3/uL (130-400) D 01/26/24 06:30
Sodium 131 mmol/L (135-145) L 01/26/24 06:30
Potassium 3.9 mmol/L (3.5-5.1) 01/26/24 06:30
Chloride 98 mmol/L (98-107) 01/26/24 06:30
Carbon Dioxide 25 mmol/L (22-30) 03/03/24 06:30
BUN 18 mg/dl (7-17) H 01/26/24 06:30
Creatinine 3.9 mg/dL (0.6-1.0) H 01/26/24 06:30
eGFR 11.05 01/26/24 06:30
Glucose 144 mg/dl (70-99) H 01/26/24 06:30
Calcium 8.8 mg/dl (8.4-10.2) 01/26/24 06:30
Phosphorus 6.3 mg/dl (2.5-4.5) H 01/23/24 08:16
Albumin 2.8 g/dl (3.5-5.0) L 01/23/24 08:16
Physical Exam
-
Vital Signs:
Vital Signs
Temp Pulse Resp BP Pulse Ox
97.9 F 66 16 146/67 98
01/26/24 15:06 01/26/24 15:06 01/26/24 15:06 01/26/24 15:06 01/26/24 15:06
Cardiovascular:: Regular rate and rhythm
Respiratory:: Bilateral: Coarse
Lung Excursion:: Normal
Abdomen:: Nontender and Soft
Bowel Sounds:: Normal
Extremity Edema:: None: Bilateral:
[2024-01-26 16:39] LABS: Glucose - Point of Care 135 mg/dl (70-99)
[2024-01-26] MEDS: LEVAQUIN 100 IV (18:08)
[2024-01-26] MEDS: XALATAN OPHTHALMIC SOLUTION 1 DROP RIGHT EYE (21:50)
[2024-01-26] MEDS: COLOCORT/CORTENEMA 60 ML RECTAL (21:54)
[2024-01-26 22:01] LABS: Glucose - Point of Care 140 mg/dl (70-99)
--- NOTE | 2024-01-26 22:45 | PTCARENOTE ---
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 Will continue to monitor.
[2024-01-26] MEDS: ANESTHETIC LOZENGE 1 LOZENGE PO (23:11)
[2024-01-26] MEDS: FLUSH (NSS) 1 FLUSH IV (23:12)
[2024-01-27] VITALS (9 sets, daily range): BP systolic 16–174; BP diastolic 61–86; BMI 30.3
[2024-01-27] MEDS: FIRVANQ 125 MG PO ×4 (06:03→23:21)
[2024-01-27] MEDS: NOVOLOG FLEXPEN-LOW RESISTANCE 1 UNITS SC (06:03)
[2024-01-27 06:04] LABS: Glucose - Point of Care 184 mg/dl (70-99)
[2024-01-27 06:11] LABS: Hemoglobin 7.9 g/dL (12.0-16.0); Mean Corp Hgb Conc. 34.3 g/dL (33.0-37.0); Mean Corpuscular Hgb 29.8 pg (27.0-31.0); Mean Corpuscular Volume 86.8 fL (81.0-99.0); Mean Platelet Volume 9.4 fL (7.4-10.4); Platelet Count 176 10^3/uL (130-400); Red Blood Cell Count 2.65 10^6/uL (4.20-5.40); Red Cell Dist. Width 14.9 % (11.5-14.5); White Blood Cell Count 13.4 10^3/uL (4.8-10.8)
[2024-01-27 06:49] LABS: Blood Urea Nitrogen 32 mg/dl (7-17); Calcium 8.4 mg/dl (8.4-10.2); Carbon Dioxide 21 mmol/L (22-30); Chloride 95 mmol/L (98-107); Estimated Creatinine Clearance 8 ml/min; Glucose 173 mg/dl (70-99); Magnesium 1.8 mg/dl (1.6-2.3); Sodium 128 mmol/L (135-145); eGFR 7.48
[2024-01-27] MEDS: FLAGYL 500 MG 100 IV ×2 (08:19→16:50)
[2024-01-27] MEDS: NORVASC 5 MG PO (08:20)
[2024-01-27] MEDS: TOPROL XL 50 MG PO (08:21)
[2024-01-27] MEDS: HEPARIN 5000 UNITS SC ×2 (08:21→20:54)
[2024-01-27] MEDS: TRUSOPT 2% OPHTHALMIC SOLUTION 1 DROP RIGHT EYE ×2 (08:23→20:52)
[2024-01-27] MEDS: ALPHAGAN 0.2% EYE DROPS 1 DROP RIGHT EYE ×2 (08:23→20:52)
[2024-01-27] MEDS: TIMOPTIC 0.5% OPHTHALMIC SOLUTION 1 DROP RIGHT EYE (08:24)
[2024-01-27] MEDS: ENTOCORT EC 9 MG PO (08:25)
[2024-01-27 10:29] LABS: Glucose - Point of Care 158 mg/dl (70-99)
[2024-01-27 12:36] LABS: Glucose - Point of Care 124 mg/dl (70-99)
[2024-01-27] MEDS: NOVOLOG FLEXPEN-LOW RESISTANCE SC ×2 (12:44→17:59)
[2024-01-27] MEDS: HEPARIN 500 UNITS IV (12:50)
--- NOTE | 2024-01-27 13:07 | W.PN.HOSP.TC ---
Addendum entered and electronically signed by Nnamdi Aquino MD 01/27/24 17:36:
Patient seen and examined
Discussed with resident
Impression/plan:
Acute left sided colitis.
Differential diagnosis ulcerative colitis flare, versus infection including C. difficile, versus ischemic.
Bacterial stool cultures negative to date
Stool for C. difficile positive for antigen negative for toxin.
Overall improved initially on IV antibiotics later changed from Zosyn combination of Levaquin and Flagyl with addition of enteral vancomycin for empiric C. difficile coverage.
Also on budesonide
Sigmoidoscopy today unremarkable pending biopsy.
Continue budesonide as per GI.
Advance diet.
Anticipate total of 7 days of antibacterial therapy and complete 2 weeks of oral vancomycin.
[place] with severe metabolic acidosis and hyperkalemia
Anuria
Initiated on HD.
Monitor renal function and urine output.
For renal biopsy on 01/27.
Plavix held for 5 days.
Original Note:
Today's Communication/Plan
-
Monitor BMP
Renal Biopsy AM
Stop levo/flagy tomorrow
Continue Oral Vanco for another week.
Assessment / Plan
Assessment / Plan
A/P:� Patient is an 83y F with PMH significant for ASCVD, HTN and ulcerative colitis who presents to ED complaining of abdominal pain and diarrhea x 1 week.
Impression:
Sigmoid colitis.
Acute kidney failure
Acute severe metabolic acidosis.
Conditions prior to admission:
Ulcerative colitis
CKD stage IIIa baseline creatinine 1.4.
Essential hypertension baseline ASCVD.
Diabetes type 2.
Plan
01/26/24 -- flex sig in AM, HD in PM, renal biopsy Saturday
01/25/24 -- BP running high, will need med adjustment--HGB 7.7 likely anemia of chronic disease--consider transfusion
Sigmoid Colitis: Differential ulcerative colitis flareup versus infectious, versus ischemic
Ulcerative Colitis
�- Watery stool with mucus x 1 week - decreasing in frequency - with CT scan 01/20 showing sigmoid colitis.
�- started on abx
�- High risk for ischemic colitis given history of vascular disease, etc.
�- Unable to do CTA, etc secondary to marked renal impairment (see below).
-Stool cultures pending. Stool for C. difficile negative for toxin. Antigen positive--on oral vanco and abx changed to levo/flagyl
�- IV abx for now.� Monitor response closely.
�-Initiated on budesonide and hydrocortisone enema on
�- Follow clinical status, serial lactate levels, etc.
�
[place]
Anion Gap Metabolic Acidosis
Elevated serum acetone level possibly in the settings of SGLT 2 inhibitor
- Nephrology input appreciated
-[place] Multifactorial
-Intake of ACEI and Jardiance for years leading to Acute Tubular Necrosis
-Kidney biopsy to rule out Glomerular etiologies next week. Plavix has been on hold with the last dose on 01/22
�- Likely secondary to hypovolemia +/- hypotension / ATN.
�-Given anuria, rising creatinine, persistent acidosis initiated on hemodialysis on (temporary HD catheter placed by [facility] on 01/22)
Benign Hypertension
�- Hold all antihypertensive medications acutely--would restart as BP running high
�- Discontinue SGLT2 inhibitor.
ASCVD
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
�- Hold BP meds as noted above. Monitor hemodynamics with onset of HD.
�- IVF support / avoid hypotension.
DM-II
Suspect lactic acidosis possibly secondary to euglycemic DKA with elevated beta hydroxybutyrate level in the settings of SGLT2 inhibitor
�- Stable.�discontinue Jardiance
�- Follow glucose and cover with SSI as needed.
�- A1C 6.9
DVT Prophylaxis:� Lovenox
Code Status:� Full
Anticipated Discharge: 24 - 48 hours
Subjective/Interval History
-
Date of Service: January 27, 2024
Objective Data
-
Labs:
Laboratory Results
01/27/24
05:33
WBC 13.4 H
Hgb 7.9 L
Hct 23.0 L
Plt Count 176
Sodium 128 L
Potassium 4.0
Chloride 95 L
Carbon Dioxide 21 L
BUN 32 H
Creatinine 5.4 H*
Glucose 173 H
Calcium 8.4
Vital Signs:
Vital Signs
Temp Pulse Resp BP Pulse Ox
97.7 F 67 18 169/82 97
01/27/24 11:00 01/27/24 11:00 01/27/24 11:00 01/27/24 11:00 01/27/24 11:00
I&O
01/26/24 01/27/24 01/28/24
06:59 06:59 06:59
Intake Total 580 / 580 740 / 740
Output Total 50 / 50
Balance 530 / 530 740 / 740
Physical Exam
-
General: Well Developed, Well Nourished and No Apparent Distress
HEENT: Normocephalic and Atraumatic
Respiratory: Clear to Auscultation
Cardiac: Regular Rhythm and S1/S2; Negative Murmur
GI: Soft, Nontender, Nondistended and Normal Bowel Sounds
Musculoskeletal: No Clubbing, No Cyanosis and No Edema
Neuro: Awake and Alert
Psych: Calm
[2024-01-27] MEDS: RETACRIT 6000 UNITS IV (14:22)
--- NOTE | 2024-01-27 14:27 | W.PN.NEPH.HD ---
Assessment
-
feeling well on HD
No complaints
Progress Note - Hemodialysis
-
Date of Service: January 27, 2024
Duration: 30 minutes and 3 hours
Potassium Bath: 3
Calcium Bath: 2.5
Opti-Dialyzer: 160
Ultrafiltration: Other
Blood Flow: 400
Dialysate Flow: 600
Heparin: 500
EPO: 6K
--- NOTE | 2024-01-27 15:23 | CM ---
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
Plan home vs snf when dc.
[2024-01-27] MEDS: HEPARIN 2200 UNITS INTRACATH (16:26)
--- NOTE | 2024-01-27 16:59 | CM ---
patient with flex sigmoidoscopy today,hemodialysis today.for renal bx tomorrow,nephrology to determine if op hd needed.
Plan home vs st rehab.
[2024-01-27 17:34] LABS: Glucose - Point of Care 103 mg/dl (70-99)
[2024-01-27 21:42] LABS: Glucose - Point of Care 155 mg/dl (70-99)
[2024-01-27] MEDS: XALATAN OPHTHALMIC SOLUTION 1 DROP RIGHT EYE (23:21)
[2024-01-27] MEDS: COLOCORT/CORTENEMA 60 ML RECTAL (23:21)
[2024-01-28] VITALS (20 sets, daily range): BP systolic 57–162; BP diastolic 40–82; BMI 30.3
[2024-01-28] MEDS: FLAGYL 500 MG 100 IV ×2 (00:13→08:16)
[2024-01-28] MEDS: FIRVANQ 125 MG PO ×2 (06:21→12:56)
[2024-01-28 06:29] LABS: Hematocrit 23.1 % (37.0-47.0); Hemoglobin 7.7 g/dL (12.0-16.0); Mean Corp Hgb Conc. 33.3 g/dL (33.0-37.0); Mean Corpuscular Hgb 29.2 pg (27.0-31.0); Mean Corpuscular Volume 87.5 fL (81.0-99.0); Mean Platelet Volume 9.7 fL (7.4-10.4); Nucleated Red Blood Cells % 0.1 %; Platelet Count 161 10^3/uL (130-400); Red Blood Cell Count 2.64 10^6/uL (4.20-5.40); Red Cell Dist. Width 14.9 % (11.5-14.5); White Blood Cell Count 18.4 10^3/uL (4.8-10.8)
[2024-01-28 06:38] LABS: INR 1.35; PT 16.5 Sec (11.4-14.6)
[2024-01-28 06:40] LABS: Blood Urea Nitrogen 24 mg/dl (7-17); Calcium 8.5 mg/dl (8.4-10.2); Carbon Dioxide 28 mmol/L (22-30); Chloride 96 mmol/L (98-107); Estimated Creatinine Clearance 11 ml/min; Glucose 181 mg/dl (70-99); Potassium 3.7 mmol/L (3.5-5.1); Sodium 132 mmol/L (135-145); eGFR 11.77
[2024-01-28 07:26] LABS: Absolute Neutrophils -Man Diff 11.2 10^3/uL (1.4-6.5); Band Neutrophils 0 % (0-3); Hypochromasia 2+; Lymphocytes 25 % (20-51); Monocytes 10 % (2-9); Myelocytes 4 % (-); Normal RBC Morphology No; Ovalocytes 1+; Platelets Checked Yes; Polychromasia Slight; Segmented Neutrophils 61 % (42-75); Total Cells Counted 100
[2024-01-28] MEDS: TOPROL XL 50 MG PO (08:16)
[2024-01-28] MEDS: ENTOCORT EC 9 MG PO (08:16)
[2024-01-28] MEDS: NORVASC 5 MG PO (08:16)
[2024-01-28] MEDS: TIMOPTIC 0.5% OPHTHALMIC SOLUTION 1 DROP RIGHT EYE (08:17)
[2024-01-28] MEDS: ALPHAGAN 0.2% EYE DROPS 1 DROP RIGHT EYE ×2 (08:17→21:23)
[2024-01-28] MEDS: TRUSOPT 2% OPHTHALMIC SOLUTION 1 DROP RIGHT EYE ×2 (08:17→21:22)
[2024-01-28] MEDS: HEPARIN SC (08:18)
[2024-01-28 08:23] LABS: Glucose - Point of Care 185 mg/dl (70-99)
[2024-01-28] MEDS: NOVOLOG FLEXPEN-LOW RESISTANCE 1 UNITS SC (08:23)
[2024-01-28] MEDS: CATAPRES 0.100000000000000006 MG PO (10:03)
--- NOTE | 2024-01-28 12:42 | W.PN.HOSP.TC ---
Addendum entered and electronically signed by Nnamdi Aquino MD 01/28/24 16:40:
Patient seen and examined
Discussed with resident
Discussed with nephrology and gastroenterology
Impression/plan:
Left-sided colitis suspected flare of ulcerative colitis. Negative ID workup to
Will stop antibiotics including today after completion of 7 days of treatment
Continue budesonide with plan to discharge at 9 mg a day for 3 months and taper as outpatient by 3 mg every 2 weeks after 3 months of treatment
Follow-up with gastroenterology
[place] on CKD.
Status post renal biopsy today.
HD in AM.
case management consultation for outpatient HD arrangements.
History of CVA
Currently off Plavix due to renal biopsy
Will restart when okay with interventional radiology
Original Note:
Today's Communication/Plan
-
Outpatient HD follow up
Outpatient GI follow up.
Assessment / Plan
Assessment / Plan
A/P:� Patient is an 83y F with PMH significant for ASCVD, HTN and ulcerative colitis who presents to ED complaining of abdominal pain and diarrhea x 1 week.
Impression:
Sigmoid colitis.
Acute kidney failure
Acute severe metabolic acidosis.
Conditions prior to admission:
Ulcerative colitis
CKD stage IIIa baseline creatinine 1.4.
Essential hypertension baseline ASCVD.
Diabetes type 2.
Plan:
Acute left sided colitis.
Differential diagnosis ulcerative colitis flare, versus infection including C. difficile, versus ischemic.
Bacterial stool cultures negative to date
Stool for C. difficile positive for antigen negative for toxin.
Overall improved initially on IV antibiotics later changed from Zosyn combination of Levaquin and Flagyl with addition of enteral vancomycin for empiric C. difficile coverage.
Also on budesonide
Sigmoidoscopy today unremarkable pending biopsy.
Continue budesonide as per GI.
Advance diet.
Anticipate total of 7 days of antibacterial therapy and complete 2 weeks of oral vancomycin.
[place] with severe metabolic acidosis and hyperkalemia
Anuria
Initiated on HD.
Monitor renal function and urine output.
For renal biopsy on 01/27.
Plavix held for 5 days.
Benign Hypertension
�- Hold all antihypertensive medications acutely--would restart as BP running high
�- Discontinue SGLT2 inhibitor.
ASCVD
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
�- Hold BP meds as noted above. Monitor hemodynamics with onset of HD.
�- IVF support / avoid hypotension.
DM-II
Suspect lactic acidosis possibly secondary to euglycemic DKA with elevated beta hydroxybutyrate level in the settings of SGLT2 inhibitor
�- Stable.�discontinue Jardiance
�- Follow glucose and cover with SSI as needed.
�- A1C 6.9
DVT Prophylaxis:� Lovenox
Code Status:� Full
Anticipated Discharge: > 48 hours
Subjective/Interval History
-
Date of Service: January 28, 2024
Objective Data
-
Labs:
Laboratory Results
01/28/24 01/28/24
05:30 16:30
WBC 18.4 H
Hgb 7.7 L Pending
Hct 23.1 L Pending
Plt Count 161
PT 16.5 H
INR 1.35
Sodium 132 L
Potassium 3.7
Chloride 96 L
Carbon Dioxide 28
BUN 24 H
Creatinine 3.7 H
Glucose 181 H
Calcium 8.5
Vital Signs:
Vital Signs
Temp Pulse Resp BP Pulse Ox
98 F 57 15 132/62 91
01/28/24 12:07 01/28/24 12:25 01/28/24 12:25 01/28/24 12:25 03/05/24 12:07
I&O
01/27/24 01/28/24 01/29/24
06:59 06:59 06:59
Intake Total 740 / 740 480 / 480
Output Total 300 / 300
Balance 740 / 740 180 / 180
Physical Exam
-
General: Well Developed and No Apparent Distress
HEENT: Normocephalic and Atraumatic
Respiratory: Clear to Auscultation
Cardiac: Regular Rhythm and S1/S2; Negative Murmur or Rub
GI: Soft, Nontender, Nondistended and Normal Bowel Sounds
Musculoskeletal: No Clubbing, No Cyanosis and No Edema
Neuro: Awake and Alert
[2024-01-28 12:53] LABS: Glucose - Point of Care 142 mg/dl (70-99)
[2024-01-28] MEDS: NOVOLOG FLEXPEN-LOW RESISTANCE SC ×2 (12:55→16:49)
[2024-01-28] MEDS: DILAUDID 0.5 MG IV (13:24)
--- NOTE | 2024-01-28 13:51 | W.PN.GI.CBS2 ---
Today's Communication / Plan
-
dc antibiotics
added probiotics
Assessment / Plan
-
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 She had follow up with
Dr. Feldman and with hx multiple medical issue as declined colonoscopy in past 10 years. She related she use Lialda for per colitis PRN. She will have flare about every 6 months and take 1-2 weeks of therapy. She started last Saturday with diarrhea
and started Lialda 2.4 gram tablet then diarrhea and mucous continued. She spoke with Dr. Nuñez her PCP on and recommended increase dose to 4.8 grams daily. On Saturday she was noted with shaking chill while at PT but recall BP stable
at 118/52 and 130/74 during therapy session. She persisted to have abdominal pain and diarrhea but not large volumes and PCP recommended CT and abx. She completed CT without contrast 01/20 with moderate colitis of sigmoid colon infectious vs
inflammatory and directed to ER. On admission noted with WBC 19.7, hbg 9.3, Na 132, co2 9, BUN 55, creat 7.1.
-colitis with hx longstanding Ulcerative colitis Lialda use PRN
-diarrhea
-cdiff ag + tox neg
-BROOKLYN with hx CKD
-metabolic acidosis
-leukocytosis
-anemia
-shaking chills prior to admission
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
other medical problems:
-HTN
-CAD
-DM on Jardiance prior to admission
-bladder CA
-skin CA
-hx CEA
PLAN:
-Unclear if her symptoms are related to infectious versus ischemic colitis or a flareup of UC, her sigmoidoscopy from yesterday was unremarkable but has been on budesonide and hydrocortisone enemas and antibiotics since admission.
-Stool cultures are negative, will DC antibiotics. her C. difficile antigen was positive but toxin negative.
-Will add probiotics
-Continue budesonide 9 mg daily for a total of 8 weeks ( since flex was neg does not need prolonged steroids) and then subsequently can drop to 6 mg for 2 weeks then 3 mg for 2 weeks and then off discussed with Dr. Aquino given BROOK[place]N and now on
hemodialysis
-Will hold off on restarting her on mesalamine since still unclear etiology for BROOK[place]N ( maybe multifactorial ) had kidney biopsy today
Will follow-up in the GI office after DC. Will sign off and will be available as needed.
Subjective
Subjective
Date of Service: January 28, 2024
Had kidney biopsy today. Diarrhea is markedly improved, noted results of sigmoidoscopy no evidence of active colitis, biopsies pending
Objective
Data Reviewed
Laboratory Data:
Laboratory Results
01/28/24 05:30
Laboratory Results
PT 16.5 Sec (11.4-14.6) H 01/28/24 05:30
INR 1.35 01/28/24 05:30
Phosphorus 6.3 mg/dl (2.5-4.5) H 01/23/24 08:16
Magnesium 1.8 mg/dl (1.6-2.3) 01/27/24 05:33
Total Bilirubin 0.7 mg/dl (0.2-1.3) 01/23/24 08:16
AST 72 U/L (14-36) H 01/23/24 08:16
ALT 34 U/L (0-35) 01/23/24 08:16
Alkaline Phosphatase 134 U/L (38-126) H 01/23/24 08:16
Vital Signs and I&O:
Vital Signs
Temp Pulse Resp BP Pulse Ox
98.2 F 61 18 125/66 95
01/28/24 13:18 01/28/24 13:18 01/28/24 13:18 01/28/24 13:18 01/28/24 13:18
I&O
01/27/24 01/28/24 01/29/24
06:59 06:59 06:59
Intake Total 740 / 740 480 / 480
Output Total 300 / 300
Balance 740 / 740 180 / 180
Physical Exam
Physical Exam
Cardiology: Normal Sinus Rhythm
Pulmonary: Clear
GI: Soft, Non Distended, Non Tender and Normal Bowel Sounds
--- NOTE | 2024-01-28 15:46 | W.PN.NEPH.PH ---
Today's Communication / Plan
-
- f.u biopsy results
- HD tomorrow
Assessment/Plan
-
IMP:
Sigmoid Colitis
Ulcerative Colitis
Severe BROOKLYN-cr 1 in 2020
severe Anion Gap Metabolic Acidosis
Anemia
Leucocytosis
Hyponatremia
Benign Hypertension
CAD s/p stent 2018
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
DM-II
bladder ca
Plan:
-s/p biopsy today, denies pain
-HD tomorrow afternoon
-
-
Date of Service: January 28, 2024
CC / HPI / ROS
-
Chief Complaint:
BROOK[place]N
History of Present Illness:
BP stable
tolerated HD yesterday
hgb pending
Review of Systems:
no CP/SOB
no UOP
Labs
-
Labs:
WBC 18.4 10^3/uL (4.8-10.8) H 01/28/24 05:30
RBC 2.64 10^6/uL (4.20-5.40) L 01/28/24 05:30
Plt Count 161 10^3/uL (130-400) 01/28/24 05:30
Sodium 132 mmol/L (135-145) L 01/28/24 05:30
Potassium 3.7 mmol/L (3.5-5.1) 01/28/24 05:30
Chloride 96 mmol/L (98-107) L 01/28/24 05:30
Carbon Dioxide 28 mmol/L (22-30) 01/28/24 05:30
BUN 24 mg/dl (7-17) H 01/28/24 05:30
Creatinine 3.7 mg/dL (0.6-1.0) H 01/28/24 05:30
eGFR 11.77 01/28/24 05:30
Glucose 181 mg/dl (70-99) H 01/28/24 05:30
Calcium 8.5 mg/dl (8.4-10.2) 01/28/24 05:30
Phosphorus 6.3 mg/dl (2.5-4.5) H 01/23/24 08:16
Albumin 2.8 g/dl (3.5-5.0) L 01/23/24 08:16
Physical Exam
-
Vital Signs:
Vital Signs
Temp Pulse Resp BP Pulse Ox
98.2 F 59 18 129/61 95
01/28/24 14:26 01/28/24 14:26 01/28/24 14:26 01/28/24 14:26 01/28/24 14:26
Cardiovascular:: Regular rate and rhythm
Respiratory:: Bilateral: CTA
Lung Excursion:: Normal
Abdomen:: Nontender and Soft
Bowel Sounds:: Normal
Extremity Edema:: +1: Bilateral:
Smith Catheter: No
[2024-01-28 16:42] LABS: Glucose - Point of Care 126 mg/dl (70-99)
[2024-01-28 17:13] LABS: Hematocrit 19.6 % (37.0-47.0); Hemoglobin 6.6 g/dL (12.0-16.0)
--- NOTE | 2024-01-28 17:34 | W.PN.UPDATE ---
Update Note
Progress Note Update
Noted hemoglobin drop 6.6.
Status post left renal biopsy.
Patient reports no worsening of pain.
Has been anuric with no hematuria postbiopsy.
Hemodynamically stable.
Has been off Plavix for 5 days prior to biopsy
Subcu heparin held morning day of biopsy and will be discontinued for now.
Transfuse 1 unit of packed red blood cells
Serial hemoglobin monitoring.
[2024-01-28 19:47] LABS: 24 Hour Urine Total Volume 50 mL; Total Protein, Urine 35 mg/d (<=150); Ur Free Lambda Excretion/day 6.18 mg/d; Urine Collection Length 24 hr; Urine Free Kappa Excretion/Day 11.84 mg/d; Urine Free Kappa Light Chains 236.87 mg/L (0.00-32.90); Urine Free Lambda Light Chains 123.55 mg/L (0.00-3.79)
[2024-01-28 21:23] LABS: Glucose - Point of Care 229 mg/dl (70-99)
[2024-01-28] MEDS: XALATAN OPHTHALMIC SOLUTION 1 DROP RIGHT EYE (22:35)
[2024-01-29] VITALS (7 sets, daily range): BP systolic 109–152; BP diastolic 55–69; PULSE 73–78; O2SAT 96–99; BMI 32.3
[2024-01-29 07:48] LABS: Glucose - Point of Care 157 mg/dl (70-99)
[2024-01-29 08:18] LABS: Hematocrit 22.6 % (37.0-47.0); Hemoglobin 7.8 g/dL (12.0-16.0); Mean Corp Hgb Conc. 34.5 g/dL (33.0-37.0); Mean Corpuscular Hgb 30.8 pg (27.0-31.0); Mean Corpuscular Volume 89.3 fL (81.0-99.0); Platelet Count 161 10^3/uL (130-400); Red Blood Cell Count 2.53 10^6/uL (4.20-5.40); Red Cell Dist. Width 14.5 % (11.5-14.5); White Blood Cell Count 22.9 10^3/uL (4.8-10.8)
[2024-01-29] MEDS: NOVOLOG FLEXPEN-LOW RESISTANCE SC (08:37)
[2024-01-29 09:01] LABS: Absolute Neutrophils -Man Diff 8.4 10^3/uL (1.4-6.5); Atypical Lymphocytes 7 %; Band Neutrophils 2 % (0-3); Lymphocytes 48 % (20-51); Monocytes 8 % (2-9); Segmented Neutrophils 35 % (42-75)
[2024-01-29 09:02] LABS: Anisocytosis 1+; Macrocytosis 1+; Normal RBC Morphology No; Platelets Checked Yes; Total Cells Counted 100
--- NOTE | 2024-01-29 09:26 | W.PN.NEPH.HD ---
Assessment
-
Patient seen on HD
sbp stable at 117
blood given last night for hgb drop post biopsy
recheck h/h today, if continues to drop will obtain non contrast CT to evaluate for renal hematoma post biopsy
Progress Note - Hemodialysis
-
Date of Service: January 29, 2024
Duration: 30 minutes and 3 hours
Potassium Bath: 3
Calcium Bath: 2.5
Opti-Dialyzer: 160
Ultrafiltration: Other (even)
Blood Flow: 400
Dialysate Flow: 600
Heparin: none
EPO: 8K
[2024-01-29] MEDS: RETACRIT 8000 UNITS IV (10:59)
[2024-01-29] MEDS: HEPARIN 2200 UNITS INTRACATH (11:18)
--- NOTE | 2024-01-29 11:40 | W.PN.HOSP.TC ---
Addendum entered and electronically signed by Nnamdi Aquino MD 01/29/24 16:56:
Patient seen and examined
Discussed with resident
Discussed with nephrology and gastroenterology
Impression/plan:
Left-sided colitis suspected flare of ulcerative colitis.� Negative ID workup to
Will stop antibiotics including today after completion of 7 days of treatment
Continue budesonide with plan to discharge at 9 mg a day for 3 months and taper as outpatient by 3 mg every 2 weeks after 3 months of treatment
Follow-up with gastroenterology
BROOKLYN on CKD.
Status post renal biopsy today.
HD in AM.
case management consultation for outpatient HD arrangements.
Acute on chronic anemia.
Noted hemoglobin dropped to 6.6 shortly after kidney biopsy
Status post 1 unit of PRBC transfused on 01/27 with hemoglobin stable at 7.9.
Monitor closely
So far no clinical evidence of renal hematoma given hemodynamic stability as well as negative physical exam.
Has been off Plavix and heparin.
If sudden hemoglobin drop consider CT evaluation
History of CVA
Currently off Plavix due to renal biopsy
Will restart when okay with interventional radiology
Original Note:
Today's Communication/Plan
-
Hgb 7.8. Repeat Lab pending.
Monitor Hgb
Monitor BP
Outpatient HD
Assessment / Plan
Assessment / Plan
A/P:� Patient is an 83y F with PMH significant for ASCVD, HTN and ulcerative colitis who presents to ED complaining of abdominal pain and diarrhea x 1 week.
Impression:
Sigmoid colitis.
Acute kidney failure
Acute severe metabolic acidosis.
Conditions prior to admission:
Ulcerative colitis
CKD stage IIIa baseline creatinine 1.4.
Essential hypertension baseline ASCVD.
Diabetes type 2.
Plan:
Acute left sided colitis.
Differential diagnosis ulcerative colitis flare, versus infection including C. difficile, versus ischemic.
Bacterial stool cultures negative to date
Stool for C. difficile positive for antigen negative for toxin.
Overall improved initially on IV antibiotics later changed from Zosyn combination of Levaquin and Flagyl with addition of enteral vancomycin for empiric C. difficile coverage.
Also on budesonide
Sigmoidoscopy today unremarkable pending biopsy.
Continue budesonide as per GI.
Advance diet.
Anticipate total of 7 days of antibacterial therapy and complete 2 weeks of oral vancomycin.
[place] with severe metabolic acidosis and hyperkalemia
Anuria
Initiated on HD.
Monitor renal function and urine output.
For renal biopsy on 01/27.
Plavix held for 5 days.
Benign Hypertension
�- Hold all antihypertensive medications acutely--would restart as BP running high
�- Discontinue SGLT2 inhibitor.
ASCVD
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
�- Hold BP meds as noted above. Monitor hemodynamics with onset of HD.
�- IVF support / avoid hypotension.
DM-II
Suspect lactic acidosis possibly secondary to euglycemic DKA with elevated beta hydroxybutyrate level in the settings of SGLT2 inhibitor
�- Stable.�discontinue Jardiance
�- Follow glucose and cover with SSI as needed.
�- A1C 6.9
DVT Prophylaxis:� Lovenox
Code Status:� Full
Anticipated Discharge: > 48 hours
Subjective/Interval History
-
Date of Service: January 29, 2024
Objective Data
-
Labs:
Laboratory Results
01/29/24 01/29/24
07:43 16:00
WBC 22.9 H
Hgb 7.8 L Pending
Hct 22.6 L
Plt Count 161
Sodium Pending
Potassium Pending
Chloride Pending
Carbon Dioxide Pending
BUN Pending
Creatinine Pending
Glucose Pending
Calcium Pending
Vital Signs:
Vital Signs
Temp Pulse Resp BP Pulse Ox
97.8 F 62 17 122/60 95
01/29/24 07:34 01/29/24 07:34 01/29/24 07:34 01/29/24 07:34 01/29/24 07:34
I&O
01/28/24 01/29/24 01/30/24
06:59 06:59 06:59
Intake Total 480 / 480 910 / 910
Output Total 300 / 300 300 / 300
Balance 180 / 180 610 / 610
Physical Exam
-
General: Well Developed and No Apparent Distress
HEENT: Normocephalic, Atraumatic and Moist Mucous Membranes
Respiratory: Clear to Auscultation
Cardiac: Regular Rhythm and S1/S2; Negative Murmur, Rub or Gallop
GI: Soft, Nontender, Nondistended and Normal Bowel Sounds; Negative Organomegaly
Rectal: Deferred by Provider
Musculoskeletal: No Clubbing, No Cyanosis and No Edema
Neuro: Awake and Alert
[2024-01-29 11:49] LABS: Blood Urea Nitrogen 39 mg/dl (7-17); Calcium 8.2 mg/dl (8.4-10.2); Carbon Dioxide 21 mmol/L (22-30); Chloride 98 mmol/L (98-107); Estimated Creatinine Clearance 8 ml/min; Glucose 142 mg/dl (70-99); Potassium 3.3 mmol/L (3.5-5.1); Sodium 129 mmol/L (135-145); eGFR 7.83
[2024-01-29] MEDS: ENTOCORT EC 9 MG PO (12:32)
[2024-01-29] MEDS: TOPROL XL 50 MG PO (12:32)
[2024-01-29] MEDS: NORVASC 5 MG PO (12:32)
[2024-01-29] MEDS: ALPHAGAN 0.2% EYE DROPS 1 DROP RIGHT EYE ×2 (12:33→20:51)
[2024-01-29] MEDS: TRUSOPT 2% OPHTHALMIC SOLUTION 1 DROP RIGHT EYE ×2 (12:33→20:50)
[2024-01-29] MEDS: TIMOPTIC 0.5% OPHTHALMIC SOLUTION 1 DROP RIGHT EYE (12:34)
[2024-01-29 12:40] LABS: Glucose - Point of Care 175 mg/dl (70-99)
[2024-01-29] MEDS: NOVOLOG FLEXPEN-LOW RESISTANCE 1 UNITS SC (12:45)
[2024-01-29 16:13] LABS: Hemoglobin 7.9 g/dL (12.0-16.0)
[2024-01-29 17:22] LABS: Glucose - Point of Care 173 mg/dl (70-99)
[2024-01-29] MEDS: NOVOLOG FLEXPEN-LOW RESISTANCE 3001 UNITS SC (17:29)
[2024-01-29 22:12] LABS: Glucose - Point of Care 190 mg/dl (70-99)
[2024-01-29] MEDS: XALATAN OPHTHALMIC SOLUTION 1 DROP RIGHT EYE (23:43)
[2024-01-29] MEDS: TYLENOL 650 MG PO (23:43)
[2024-01-30 06:30] LABS: Hemoglobin 6.7 g/dL (12.0-16.0)
--- NOTE | 2024-01-30 06:54 | W.PN.UPDATE ---
Update Note
Progress Note Update
RN notified SOIL ANALYST, Hgb 6.7, no active bleeding, stable VS, patient is stable, Blood consent in the chart, no HD today, therefore will order 1 unit of PRBC's today.
[2024-01-30 07:06] LABS: Glucose - Point of Care 153 mg/dl (70-99)
[2024-01-30 07:30] VITALS: BP 135/60
--- NOTE | 2024-01-30 07:31 | PTCARENOTE ---
@0637 ;neymar Walsh critical lab HGB: 6.7.
[2024-01-30] MEDS: ENTOCORT EC 9 MG PO (08:32)
[2024-01-30] MEDS: NORVASC 5 MG PO (08:32)
[2024-01-30] MEDS: TOPROL XL 50 MG PO (08:33)
[2024-01-30] MEDS: ALPHAGAN 0.2% EYE DROPS 1 DROP RIGHT EYE ×2 (08:37→20:25)
[2024-01-30] MEDS: TRUSOPT 2% OPHTHALMIC SOLUTION 1 DROP RIGHT EYE ×2 (08:38→20:26)
[2024-01-30] MEDS: TIMOPTIC 0.5% OPHTHALMIC SOLUTION 1 DROP RIGHT EYE (08:38)
[2024-01-30 08:48] LABS: Glucose - Point of Care 202 mg/dl (70-99)
[2024-01-30] MEDS: TYLENOL 650 MG PO ×3 (08:49→22:11)
[2024-01-30] MEDS: NOVOLOG FLEXPEN-LOW RESISTANCE SC (08:50)
[2024-01-30] MEDS: NOVOLOG FLEXPEN-LOW RESISTANCE 1 UNITS SC ×2 (08:52→13:10)
[2024-01-30 09:45] VITALS: BP 144/55
[2024-01-30 10:10] VITALS: BP 125/51
--- NOTE | 2024-01-30 12:05 | W.PN.NEPH.PH ---
Today's Communication / Plan
-
CT scan re: anemia s/p biopsy
blood infusing
HD tomorrow
Assessment/Plan
-
IMP:
Sigmoid Colitis
Ulcerative Colitis
Severe BROOK[place]N-cr 1 in 2020
severe Anion Gap Metabolic Acidosis
Anemia
Leucocytosis
Hyponatremia
Benign Hypertension
CAD s/p stent 2017
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
DM-II
bladder ca
Plan:
-s/p biopsy 01/28 with continued worsening anemia, will check CT of kidneys to assess for perinephric hematoma: may need IR assistence if bleeding continues
-blood transfusing again today
-hemodynamically stable
-minimal pain at biopsy site
-patient at high clinical risk with possible renal biopsy complication
-HD tomorrow
-
-
Date of Service: January 30, 2024
CC / HPI / ROS
-
Chief Complaint:
BR[place]
History of Present Illness:
BP stable
tolerated HD yesterday
s/p renal biopsy
anemia worsening s/p renal biopsy
Review of Systems:
no CP/SOB
no UOP
minimal tenderness at biospy site
Labs
-
Labs:
WBC 22.9 10^3/uL (4.8-10.8) H 01/29/24 07:43
RBC 2.53 10^6/uL (4.20-5.40) L 01/29/24 07:43
Hgb 6.7 g/dL (12.0-16.0) L* 01/30/24 05:38
Hct 22.6 % (37.0-47.0) L 01/29/24 07:43
Plt Count 161 10^3/uL (130-400) 01/29/24 07:43
Sodium 129 mmol/L (135-145) L 01/29/24 07:43
Potassium 3.3 mmol/L (3.5-5.1) L 01/29/24 07:43
Chloride 98 mmol/L (98-107) 01/29/24 07:43
Carbon Dioxide 21 mmol/L (22-30) L 01/29/24 07:43
BUN 39 mg/dl (7-17) H 01/29/24 07:43
Creatinine 5.2 mg/dL (0.6-1.0) H* 01/29/24 07:43
eGFR 7.83 01/29/24 07:43
Glucose 142 mg/dl (70-99) H 01/29/24 07:43
Calcium 8.2 mg/dl (8.4-10.2) L 01/29/24 07:43
Phosphorus 6.3 mg/dl (2.5-4.5) H 01/23/24 08:16
Albumin 2.8 g/dl (3.5-5.0) L 01/23/24 08:16
Physical Exam
-
Vital Signs:
Vital Signs
Temp Pulse Resp BP Pulse Ox
97.8 F 72 16 125/51 96
01/30/24 10:10 01/30/24 10:10 01/30/24 10:10 01/30/24 10:10 01/30/24 07:30
Cardiovascular:: Regular rate and rhythm
Respiratory:: Bilateral: CTA
Lung Excursion:: Normal
Abdomen:: Nontender
Bowel Sounds:: Normal
Extremity Edema:: None: Bilateral:
[2024-01-30 12:08] VITALS: BP 153/67
[2024-01-30 13:09] LABS: Glucose - Point of Care 158 mg/dl (70-99)
[2024-01-30 14:34] LABS: Hemoglobin 9.2 g/dL (12.0-16.0)
--- NOTE | 2024-01-30 15:16 | CM ---
Chart review. Spoke with pt at bedside
PT/OT recs - HH - pt has no preference
Referrals sent in [facility] - awaiting response
Plan - anticipate home with HH - tbd
[2024-01-30 15:25] VITALS: BP 122/59
--- NOTE | 2024-01-30 15:48 | W.PN.HOSP.TC ---
Today's Communication/Plan
-
Follow-up H&H posttransfusion.
Abdominal binder
Assessment / Plan
Assessment / Plan
A/P:� Patient is an 83y F with PMH significant for ASCVD, HTN and ulcerative colitis who presents to ED complaining of abdominal pain and diarrhea x 1 week.
Impression:
Sigmoid colitis.
Acute kidney failure requiring hemodialysis
Acute severe metabolic acidosis.
Acute anemia secondary to blood loss with retroperitoneal hematoma
Conditions prior to admission:
Ulcerative colitis
CKD stage IIIa baseline creatinine 1.4.
Essential hypertension baseline ASCVD.
Diabetes type 2.
Plan:
Acute left sided colitis.
Differential diagnosis ulcerative colitis flare, versus infection including C. difficile, versus ischemic.
Bacterial stool cultures negative to date
Stool for C. difficile positive for antigen negative for toxin.
Overall improved initially on IV antibiotics later changed from Zosyn combination of Levaquin and Flagyl with addition of enteral vancomycin for empiric C. difficile coverage.
Also on budesonide
Sigmoidoscopy today unremarkable pending biopsy.
Continue budesonide as per GI.
Advance diet.
Anticipate total of 7 days of antibacterial therapy and complete 2 weeks of oral vancomycin.
[place] with severe metabolic acidosis and hyperkalemia
Anuria
Initiated on HD.
Monitor renal function and urine output.
For renal biopsy on 01/27.
Plavix held for 5 days.
Acute anemia secondary to blood loss with retroperitoneal hematoma
Hemoglobin trending down to 6 after transfusion
Follow-up CT scan without contrast consistent with left respiratory hematoma with no connection to the kidney
Reviewed with interventional radiology. Given hemodynamic stability and radiologic findings less likely renal hematoma
Currently no indication for angiography.
Transfuse to keep hemoglobin above 7.5�8
Follow-up H&H
Benign Hypertension
�- Hold all antihypertensive medications acutely--would restart as BP running high
�- Discontinue SGLT2 inhibitor.
ASCVD
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
�- Hold BP meds as noted above. Monitor hemodynamics with onset of HD.
�- IVF support / avoid hypotension.
DM-II
Suspect lactic acidosis possibly secondary to euglycemic DKA with elevated beta hydroxybutyrate level in the settings of SGLT2 inhibitor
�- Stable.�discontinue Jardiance
�- Follow glucose and cover with SSI as needed.
�- A1C 6.9
DVT Prophylaxis:� Lovenox
Code Status:� Full
Anticipated Discharge: 24 - 48 hours
Subjective/Interval History
-
Date of Service: January 30, 2024
Objective Data
-
Labs:
Laboratory Results
01/30/24 01/30/24
05:38 14:14
Hgb 6.7 L* 9.2 L D
Vital Signs:
Vital Signs
Temp Pulse Resp BP Pulse Ox
98.6 F 70 16 153/67 95
01/30/24 12:08 01/30/24 12:08 01/30/24 12:08 01/30/24 12:08 01/30/24 12:08
I&O
01/29/24 01/30/24 01/31/24
06:59 06:59 06:59
Intake Total 910 / 910 640 / 640 250 / 250
Output Total 300 / 300 100 / 100
Balance 610 / 610 540 / 540 250 / 250
Physical Exam
-
General: Well Developed and No Apparent Distress
HEENT: Normocephalic, Atraumatic and Moist Mucous Membranes
Respiratory: Clear to Auscultation
Cardiac: Regular Rhythm and S1/S2; Negative Murmur, Rub or Gallop
GI: Soft, Nontender, Nondistended and Normal Bowel Sounds; Negative Organomegaly
Rectal: Deferred by Provider
Musculoskeletal: No Clubbing, No Cyanosis and No Edema
Skin: Negative Rash
Neuro: Nonfocal/Grossly Intact
[2024-01-30 16:26] LABS: Glucose - Point of Care 252 mg/dl (70-99)
[2024-01-30] MEDS: NOVOLOG FLEXPEN-LOW RESISTANCE 3 UNITS SC (16:34)
[2024-01-30 21:43] LABS: Glucose - Point of Care 194 mg/dl (70-99)
[2024-01-30] MEDS: XALATAN OPHTHALMIC SOLUTION 1 DROP RIGHT EYE (22:00)
--- NOTE | 2024-01-30 22:00 | PTCARENOTE ---
@2100;Pt was sitting in chair w/abdominal binder on.Pt wore abdomen binder until it was time to go to bed.Pt was remeasured for abdominal binder and given 2x size.Pt stated ,'the xtra large binder was to tight',
[2024-01-30 23:50] VITALS: BP 152/74
[2024-01-31 06:08] LABS: % Basophils 0.1 % (0-2); % Immature Granulocytes 6.2 % (0-0.5); % Lymphocytes 17.2 % (20.5-51.1); % Monocytes 15.8 % (1.7-9.3); % Neutrophils 60.7 % (42.2-75.2); Absolute Immature Granulocytes 1.3 10^3/uL (0-0.05); Absolute Lymphocytes 3.5 10^3/uL (1.2-3.4); Absolute Monocytes 3.2 10^3/uL (0.1-0.6); Absolute Neutrophils 12.4 10^3/uL (1.4-6.5); Hematocrit 24.9 % (37.0-47.0); Hemoglobin 8.5 g/dL (12.0-16.0); Mean Corp Hgb Conc. 34.1 g/dL (33.0-37.0); Mean Corpuscular Hgb 29.9 pg (27.0-31.0); Mean Corpuscular Volume 87.7 fL (81.0-99.0); Mean Platelet Volume 9.8 fL (7.4-10.4); Nucleated Red Blood Cells % 0.1 %; Platelet Count 143 10^3/uL (130-400); Red Blood Cell Count 2.84 10^6/uL (4.20-5.40); White Blood Cell Count 20.4 10^3/uL (4.8-10.8)
[2024-01-31 06:40] LABS: Blood Urea Nitrogen 46 mg/dl (7-17); Calcium 8.6 mg/dl (8.4-10.2); Carbon Dioxide 24 mmol/L (22-30); Chloride 95 mmol/L (98-107); Estimated Creatinine Clearance 7 ml/min; Glucose 135 mg/dl (70-99); Potassium 3.2 mmol/L (3.5-5.1); Sodium 131 mmol/L (135-145); eGFR 6.22
[2024-01-31 07:00] VITALS: BP 166/75
[2024-01-31 07:48] LABS: Glucose - Point of Care 129 mg/dl (70-99)
[2024-01-31] MEDS: ENTOCORT EC 9 MG PO (07:54)
[2024-01-31] MEDS: NORVASC 5 MG PO (07:54)
[2024-01-31] MEDS: TOPROL XL 50 MG PO (07:55)
[2024-01-31] MEDS: ALPHAGAN 0.2% EYE DROPS 1 DROP RIGHT EYE ×2 (07:55→20:11)
[2024-01-31] MEDS: TRUSOPT 2% OPHTHALMIC SOLUTION 1 DROP RIGHT EYE ×2 (07:55→20:10)
[2024-01-31] MEDS: TIMOPTIC 0.5% OPHTHALMIC SOLUTION 1 DROP RIGHT EYE (07:55)
[2024-01-31] MEDS: NOVOLOG FLEXPEN-LOW RESISTANCE SC ×3 (07:56→16:36)
--- NOTE | 2024-01-31 10:48 | CM ---
Addendum entered by Laila Thomson 01/31/24 16:23:
Called and spoke with Dajuan at [facility] - will have update regarding HD chair/location Saturday
CM will f/u
Addendum entered by Laila Thomson 01/31/24 13:43:
Received call from Melody at [facility] - they will accept pt for home care needs.
Addendum entered by Laila Thomson 01/31/24 13:22:
Clinicals and demographic info faxed to [phone]
Received call from [facility] - requesting info for PCP - obtained info from pt and gave info to Melody [phone]. She will review and call back if they can accept pt
Original Note:
Pt will be new to HD - in need of out-patient center
Discussed with pt, chose [facility] location
Called [facility] to make referral [phone]
Spoke with Jessy at central intake - information provided
Will fax demographic/clinical information
[2024-01-31 12:19] LABS: Glucose - Point of Care 212 mg/dl (70-99)
[2024-01-31] MEDS: RETACRIT 10000 UNITS IV (13:38)
--- NOTE | 2024-01-31 13:40 | W.PN.HOSP.TC ---
Addendum entered and electronically signed by Nnamdi Aquino MD 01/31/24 14:54:
Patient seen and examined
Discussed with nephrology
Discussed with resident
Impression/plan:
Sigmoid colitis secondary to ulcerative colitis exacerbation.
Infectious colitis ruled out.
Improved with introduction of budesonide.
Diet has been advanced
Acute kidney injury
Severe metabolic acidosis
Anuria.
Renal biopsy consistent with ATN likely prerenal causes
Initiated on HD.
Plan is to transition to tunneled catheter on Friday 02/02.
Outpatient HD arrangements.
Anemia of acute blood loss with retroperitoneal hematoma after biopsy.
In review of CT scan findings, retroperitoneal hematoma not connected to left kidney.
Required transfusion 1 unit of packed red blood cells transfused with now stable hemoglobin
Continue monitor closely
Abdominal binder.
Has been off Plavix 5 days prior to renal biopsy.
Hold subcu heparin.
Original Note:
Today's Communication/Plan
-
Monitor Hemoglobin/Hematocrit
HD
Assessment / Plan
Assessment / Plan
A/P:� Patient is an 83y F with PMH significant for ASCVD, HTN and ulcerative colitis who presents to ED complaining of abdominal pain and diarrhea x 1 week.
Impression:
Sigmoid colitis.
Acute kidney failure requiring hemodialysis
Acute severe metabolic acidosis.
Acute anemia secondary to blood loss with retroperitoneal hematoma
Conditions prior to admission:
Ulcerative colitis
CKD stage IIIa baseline creatinine 1.4.
Essential hypertension baseline ASCVD.
Diabetes type 2.
Plan:
Acute left sided colitis.
Differential diagnosis ulcerative colitis flare, versus infection including C. difficile, versus ischemic.
Bacterial stool cultures negative to date
Stool for C. difficile positive for antigen negative for toxin.
Overall improved initially on IV antibiotics later changed from Zosyn combination of Levaquin and Flagyl with addition of enteral vancomycin for empiric C. difficile coverage.
Also on budesonide
Sigmoidoscopy today unremarkable pending biopsy.
Continue budesonide as per GI.
Advance diet.
Anticipate total of 7 days of antibacterial therapy and complete 2 weeks of oral vancomycin.
[place] with severe metabolic acidosis and hyperkalemia
Anuria
Initiated on HD.
Monitor renal function and urine output.
For renal biopsy on 01/27.
Plavix held for 5 days.
Acute anemia secondary to blood loss with retroperitoneal hematoma
Hemoglobin trending down to 6 after transfusion
Follow-up CT scan without contrast consistent with left respiratory hematoma with no connection to the kidney
Reviewed with interventional radiology. Given hemodynamic stability and radiologic findings less likely renal hematoma
Currently no indication for angiography.
Transfuse to keep hemoglobin above 7.5�8
Follow-up H&H
Benign Hypertension
�- Hold all antihypertensive medications acutely--would restart as BP running high
�- Discontinue SGLT2 inhibitor.
ASCVD
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
�- Hold BP meds as noted above. Monitor hemodynamics with onset of HD.
�- IVF support / avoid hypotension.
DM-II
Suspect lactic acidosis possibly secondary to euglycemic DKA with elevated beta hydroxybutyrate level in the settings of SGLT2 inhibitor
�- Stable.�discontinue Jardiance
�- Follow glucose and cover with SSI as needed.
�- A1C 6.9
DVT Prophylaxis:� Lovenox
Code Status:� Full
Anticipated Discharge: > 48 hours
Subjective/Interval History
-
Date of Service: January 31, 2024
Objective Data
-
Labs:
Laboratory Results
01/31/24
05:40
WBC 20.4 H
Hgb 8.5 L
Hct 24.9 L
Plt Count 143
Sodium 131 L
Potassium 3.2 L
Chloride 95 L
Carbon Dioxide 24
BUN 46 H
Creatinine 6.3 H*
Glucose 135 H
Calcium 8.6
Vital Signs:
Vital Signs
Temp Pulse Resp BP Pulse Ox
97.8 F 72 16 166/75 96
01/31/24 07:00 01/31/24 07:54 01/31/24 07:00 01/31/24 07:54 01/31/24 07:00
I&O
01/30/24 01/31/24 02/01/24
06:59 06:59 06:59
Intake Total 640 / 640 690 / 810 120 / 120
Output Total 100 / 100 200 / 650 450 / 450
Balance 540 / 540 490 / 160 -330 / -330
Physical Exam
-
General: Well Developed and No Apparent Distress
HEENT: Normocephalic, Atraumatic and Moist Mucous Membranes
Respiratory: Clear to Auscultation
Cardiac: Regular Rhythm and S1/S2; Negative Murmur, Rub or Gallop
GI: Soft, Nontender, Nondistended and Normal Bowel Sounds; Negative Organomegaly
Rectal: Deferred by Provider
Musculoskeletal: No Clubbing, No Cyanosis and No Edema
Skin: Negative Rash
Neuro: Nonfocal/Grossly Intact
[2024-01-31] MEDS: FERRLECIT 125 MG IV (13:41)
[2024-01-31 15:00] VITALS: BP 176/87
--- NOTE | 2024-01-31 15:17 | W.PN.NEPH.HD ---
Assessment
-
patient with bleeding after biopsy.
Hgb now stable
Pain controlled with tylenol
No complaints on HD
normotensive
Progress Note - Hemodialysis
-
Date of Service: January 31, 2024
Duration: 30 minutes and 3 hours
Potassium Bath: 3
Calcium Bath: 2.5
Opti-Dialyzer: 160
Ultrafiltration: Other
Blood Flow: 400
Dialysate Flow: 600
EPO: 10K
[2024-01-31] MEDS: HEPARIN 2100 UNITS INTRACATH (16:03)
[2024-01-31 16:35] LABS: Glucose - Point of Care 124 mg/dl (70-99)
[2024-01-31] MEDS: XALATAN OPHTHALMIC SOLUTION 1 DROP RIGHT EYE (21:14)
[2024-01-31] MEDS: TYLENOL 650 MG PO (21:14)
[2024-01-31 21:36] LABS: Glucose - Point of Care 209 mg/dl (70-99)
[2024-01-31 22:38] VITALS: BP 120/56
[2024-02-01] MEDS: TYLENOL 650 MG PO ×2 (05:28→21:07)
[2024-02-01 06:11] VITALS: BMI 31.9
[2024-02-01 07:24] VITALS: BP 128/58
[2024-02-01 07:31] LABS: Glucose - Point of Care 141 mg/dl (70-99)
[2024-02-01 08:07] LABS: Hemoglobin 7.9 g/dL (12.0-16.0)
[2024-02-01] MEDS: NOVOLOG FLEXPEN-LOW RESISTANCE SC (08:18)
[2024-02-01] MEDS: TRUSOPT 2% OPHTHALMIC SOLUTION 1 DROP RIGHT EYE ×2 (08:19→20:53)
[2024-02-01] MEDS: ALPHAGAN 0.2% EYE DROPS 1 DROP RIGHT EYE ×2 (08:19→20:54)
[2024-02-01] MEDS: ENTOCORT EC 9 MG PO (08:20)
[2024-02-01] MEDS: TOPROL XL 50 MG PO (08:20)
[2024-02-01] MEDS: NORVASC 5 MG PO (08:21)
[2024-02-01] MEDS: TIMOPTIC 0.5% OPHTHALMIC SOLUTION 1 DROP RIGHT EYE (08:21)
--- NOTE | 2024-02-01 10:36 | W.PN.HOSP.TC ---
Addendum entered and electronically signed by Marce Dorantes MD 02/01/24 10:47:
Addendum
Hyponatremia, mild, no confusion
Hypokalemia, replace
Leukocytosis, reactive, no fevers
End
Original Note:
Today's Communication/Plan
-
.
Assessment / Plan
Assessment / Plan
Physical Exam
-
General: Well Developed and No Apparent Distress. Chronically ill looking.
HEENT: Normocephalic, Atraumatic and Moist Mucous Membranes
Respiratory: Clear to Auscultation
Cardiac: Regular Rhythm and S1/S2;
GI: Soft, Nontender, Nondistended
Rectal: No rectal bleeding
Musculoskeletal: No Clubbing, No Cyanosis and No Edema
Skin: Negative Rash
Neuro: Nonfocal/Grossly Intact
Psych: no agitation
A/P:� Patient is an 83y F with PMH significant for ASCVD, HTN and ulcerative colitis who presents to ED complaining of abdominal pain and diarrhea x 1 week.
Impression:
Acute kidney failure requiring hemodialysis
Acute severe metabolic acidosis.
Acute anemia secondary to blood loss with retroperitoneal hematoma
Conditions prior to admission:
Ulcerative colitis
CKD stage IIIa baseline creatinine 1.4.
Essential hypertension baseline ASCVD.
Diabetes type 2.
Plan:
#Acute left sided colitis/Sigmoid colitis..
Differential diagnosis ulcerative colitis flare, versus infection including C. difficile, versus ischemic.
Bacterial stool cultures negative to date
Stool for C. difficile positive for antigen negative for toxin.
Also on budesonide
Sigmoidoscopy unremarkable pending biopsy.
Continue budesonide as per GI.
Advance diet.
Not on ABx
Appreciate GI input
# Hx of CKD stage IIIa baseline creatinine 1.4. Progressed to stage V
[place] with severe metabolic acidosis and hyperkalemia
Anuria
Initiated on HD.
renal biopsy on 01/27.
Plavix held for 5 days.
# Acute blood loss with retroperitoneal hematoma
Hemoglobin trending down to 6 after transfusion
Follow-up CT scan without contrast consistent with left respiratory hematoma with no connection to the kidney
Reviewed with interventional radiology. Given hemodynamic stability and radiologic findings less likely renal hematoma
Currently no indication for angiography.
Transfuse to keep hemoglobin above 7.5�8
No abd pain
#Benign Hypertension
�- Hold all antihypertensive medications acutely--would restart as BP running high
�- Discontinue SGLT2 inhibitor.
#ASCVD
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
�- Hold BP meds as noted above. Monitor hemodynamics with onset of HD.
�- IVF support / avoid hypotension.
#DM-II
Suspect lactic acidosis possibly secondary to euglycemic DKA with elevated beta hydroxybutyrate level in the settings of SGLT2 inhibitor
�- Stable.�discontinue Jardiance
�- Follow glucose and cover with SSI as needed.
�- A1C 6.9
DVT Prophylaxis:�Teds with Plavix
Code Status:� Full
Patient requested to meet CM, I called CM Sariah, she will see the pt.
Total time spent to see the patient, examine the patient on the floor, review data and lab results, discuss treatment plan with patient, nursing staff around 55 minutes
Anticipated Discharge: > 48 hours
Subjective/Interval History
-
Date of Service: February 01, 2024
Objective Data
-
Labs:
Laboratory Results
02/01/24
07:07
Hgb 7.9 L
Vital Signs:
Vital Signs
Temp Pulse Resp BP Pulse Ox
98.5 F 74 16 128/58 94
02/01/24 07:24 02/01/24 08:21 02/01/24 07:24 02/01/24 08:21 02/01/24 07:24
I&O
01/31/24 02/01/24 02/02/24
06:59 06:59 07:59
Intake Total 690 / 810 960 / 960
Output Total 200 / 650 1600 / 1600
Balance 490 / 160 -640 / -640
--- NOTE | 2024-02-01 10:55 | CM ---
Per Attending's request met with patient at bedside. Patient feeling a bit overwhelmed about needing outpatient HD treatments.
Reviewed Case Management 01/31/24 notes regarding HD referral to [facility] and communicated Plan of Care.
Patient stated that [facility] location in [place], [place] will be convenient for her
Explained to patient that Machine Fastener will follow up with her on Saturday after she receives update from [facility]
[2024-02-01] MEDS: KCL 20 MEQ PO (10:59)
--- NOTE | 2024-02-01 11:34 | W.PN.NEPH.PH ---
Today's Communication / Plan
-
- monitor Hgb
Assessment/Plan
-
IMP:
Sigmoid Colitis
Ulcerative Colitis
Severe BROOK[place]N-cr 1 in 2020
severe Anion Gap Metabolic Acidosis
Anemia
Leucocytosis
Hyponatremia
Benign Hypertension
CAD s/p stent 2017
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
DM-II
bladder ca
Plan:
-s/p biopsy 01/28 with continued worsening anemia, CT with lateral left sided RP hematoma, appearing seperate from L kidney
-Hgb 7.9 today, if continuing to trend down, will consider repeat CT tomorrow
-UOP at 1.1L, continue to monitor for renal recovery
-planned for TDC on Saturday and awaiting placement
-HD on Saturday
-pain improving today
-HDS
-
-
Date of Service: February 01, 2024
CC / HPI / ROS
-
Chief Complaint:
BR[place]
History of Present Illness:
BP stable
tolerated HD yesterday
s/p renal biopsy
anemia worsening s/p renal biopsy
Review of Systems:
no CP/SOB
no UOP
minimal tenderness at biospy site
Labs
-
Labs:
WBC 20.4 10^3/uL (4.8-10.8) H 01/31/24 05:40
RBC 2.84 10^6/uL (4.20-5.40) L 01/31/24 05:40
Hgb 7.9 g/dL (12.0-16.0) L 02/01/24 07:07
Hct 24.9 % (37.0-47.0) L 01/31/24 05:40
Plt Count 143 10^3/uL (130-400) 01/31/24 05:40
Sodium 131 mmol/L (135-145) L 01/31/24 05:40
Potassium 3.2 mmol/L (3.5-5.1) L 01/31/24 05:40
Chloride 95 mmol/L (98-107) L 01/31/24 05:40
Carbon Dioxide 24 mmol/L (22-30) 01/31/24 05:40
BUN 46 mg/dl (7-17) H 01/31/24 05:40
Creatinine 6.3 mg/dL (0.6-1.0) H* 01/31/24 05:40
eGFR 6.22 01/31/24 05:40
Glucose 135 mg/dl (70-99) H 01/31/24 05:40
Calcium 8.6 mg/dl (8.4-10.2) 01/31/24 05:40
Phosphorus 6.3 mg/dl (2.5-4.5) H 01/23/24 08:16
Albumin 2.8 g/dl (3.5-5.0) L 01/23/24 08:16
Physical Exam
-
Vital Signs:
Vital Signs
Temp Pulse Resp BP Pulse Ox
98.5 F 74 16 128/58 94
02/01/24 07:24 02/01/24 08:21 02/01/24 07:24 02/01/24 08:21 02/01/24 07:24
Cardiovascular:: Regular rate and rhythm
Respiratory:: Bilateral: Coarse
Lung Excursion:: Normal
Abdomen:: Nontender and Soft
Bowel Sounds:: Normal
Extremity Edema:: +1: Bilateral:
Smith Catheter: No
[2024-02-01 11:46] LABS: Glucose - Point of Care 244 mg/dl (70-99)
[2024-02-01] MEDS: NOVOLOG FLEXPEN-LOW RESISTANCE 2 UNITS SC (12:02)
[2024-02-01 14:23] VITALS: BP 141/60; PULSE 82; O2SAT 97
[2024-02-01 15:37] VITALS: BP 145/62
[2024-02-01 16:42] LABS: Glucose - Point of Care 197 mg/dl (70-99)
[2024-02-01] MEDS: NOVOLOG FLEXPEN-LOW RESISTANCE 1 UNITS SC (16:44)
[2024-02-01] MEDS: XALATAN OPHTHALMIC SOLUTION 1 DROP RIGHT EYE (20:53)
[2024-02-01 21:59] LABS: Glucose - Point of Care 199 mg/dl (70-99)
[2024-02-01 23:11] VITALS: BP 137/62
[2024-02-02 06:05] VITALS: BMI 32.0
[2024-02-02 07:00] VITALS: BP 147/64
[2024-02-02 07:21] LABS: Hematocrit 23.6 % (37.0-47.0); Hemoglobin 7.9 g/dL (12.0-16.0); Mean Corp Hgb Conc. 33.5 g/dL (33.0-37.0); Mean Corpuscular Hgb 29.7 pg (27.0-31.0); Mean Corpuscular Volume 88.7 fL (81.0-99.0); Mean Platelet Volume 9.5 fL (7.4-10.4); Platelet Count 201 10^3/uL (130-400); Red Blood Cell Count 2.66 10^6/uL (4.20-5.40); Red Cell Dist. Width 17.7 % (11.5-14.5); White Blood Cell Count 17.1 10^3/uL (4.8-10.8)
[2024-02-02 07:54] LABS: Blood Urea Nitrogen 46 mg/dl (7-17); Calcium 8.4 mg/dl (8.4-10.2); Carbon Dioxide 25 mmol/L (22-30); Chloride 103 mmol/L (98-107); Estimated Creatinine Clearance 6 ml/min; Glucose 150 mg/dl (70-99); Potassium 3.3 mmol/L (3.5-5.1); Sodium 135 mmol/L (135-145); eGFR 5.99
[2024-02-02 08:11] LABS: Glucose - Point of Care 147 mg/dl (70-99)
[2024-02-02] MEDS: NOVOLOG FLEXPEN-LOW RESISTANCE SC (08:33)
[2024-02-02] MEDS: ENTOCORT EC 9 MG PO (08:34)
[2024-02-02] MEDS: TOPROL XL 50 MG PO (08:35)
[2024-02-02] MEDS: TRUSOPT 2% OPHTHALMIC SOLUTION 1 DROP RIGHT EYE ×2 (08:35→20:41)
[2024-02-02] MEDS: NORVASC 5 MG PO (08:35)
[2024-02-02] MEDS: ALPHAGAN 0.2% EYE DROPS 1 DROP RIGHT EYE ×2 (08:36→20:40)
[2024-02-02] MEDS: TIMOPTIC 0.5% OPHTHALMIC SOLUTION 1 DROP RIGHT EYE (08:36)
--- NOTE | 2024-02-02 11:23 | W.PN.NEPH.PH ---
Today's Communication / Plan
-
- TDC and HD tomorrow
Assessment/Plan
-
IMP:
Sigmoid Colitis
Ulcerative Colitis
Severe [place]N-cr 1 in 2020
severe Anion Gap Metabolic Acidosis
Anemia
Leucocytosis
Hyponatremia
Benign Hypertension
CAD s/p stent 2017
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
DM-II
bladder ca
Plan:
-s/p biopsy 01/28 with anemia, CT with lateral left sided RP hematoma, appearing seperate from L kidney.
-Hgb 7.9 stable x2 days, if continuing to trend down, will consider repeat CT tomorrow
-UOP might be improving with slowed rate of rise of Cr, monitor for renal recovery
-planned for TDC on Saturday and awaiting placement
-HD on Saturday
-pain improving today
-HDS
-
-
Date of Service: February 02, 2024
CC / HPI / ROS
-
Chief Complaint:
[place]
History of Present Illness:
BP stable
tolerated HD yesterday
s/p renal biopsy
anemia worsening s/p renal biopsy
Review of Systems:
no CP/SOB
no UOP
minimal tenderness at biospy site
Labs
-
Labs:
WBC 17.1 10^3/uL (4.8-10.8) H 02/02/24 06:10
RBC 2.66 10^6/uL (4.20-5.40) L 02/02/24 06:10
Hgb 7.9 g/dL (12.0-16.0) L 02/02/24 06:10
Hct 23.6 % (37.0-47.0) L 02/02/24 06:10
Plt Count 201 10^3/uL (130-400) D 02/02/24 06:10
Sodium 135 mmol/L (135-145) 02/02/24 06:10
Potassium 3.3 mmol/L (3.5-5.1) L 02/02/24 06:10
Chloride 103 mmol/L (98-107) 02/02/24 06:10
Carbon Dioxide 25 mmol/L (22-30) 02/02/24 06:10
BUN 46 mg/dl (7-17) H 02/02/24 06:10
Creatinine 6.5 mg/dL (0.6-1.0) H* 02/02/24 06:10
eGFR 5.99 02/02/24 06:10
Glucose 150 mg/dl (70-99) H 02/02/24 06:10
Calcium 8.4 mg/dl (8.4-10.2) 02/02/24 06:10
Phosphorus 6.3 mg/dl (2.5-4.5) H 01/23/24 08:16
Albumin 2.8 g/dl (3.5-5.0) L 01/23/24 08:16
Physical Exam
-
Vital Signs:
Vital Signs
Temp Pulse Resp BP Pulse Ox
98.3 F 77 16 147/64 95
02/02/24 07:00 02/02/24 07:00 02/02/24 07:00 02/02/24 07:00 02/02/24 07:00
Cardiovascular:: Regular rate and rhythm
Respiratory:: Bilateral: CTA
Lung Excursion:: Normal
Abdomen:: Nontender and Soft
Bowel Sounds:: Normal
Extremity Edema:: None: Bilateral:
Smith Catheter: No
--- NOTE | 2024-02-02 11:45 | W.PN.HOSP.TC ---
Today's Communication/Plan
-
.
Assessment / Plan
Assessment / Plan
Physical Exam
-
General: Well Developed and No Apparent Distress. Chronically ill looking.
HEENT: Normocephalic, Atraumatic and Moist Mucous Membranes
Respiratory: Clear to Auscultation
Cardiac: Regular Rhythm and S1/S2;
GI: Soft, Nontender, Nondistended
Rectal: No rectal bleeding
Musculoskeletal: No Clubbing, No Cyanosis and No Edema
Skin: Negative Rash
Neuro: Nonfocal/Grossly Intact
Psych: no agitation
A/P:� Patient is an 83y F with PMH significant for ASCVD, HTN and ulcerative colitis who presents to ED complaining of abdominal pain and diarrhea x 1 week.
Impression:
Acute kidney failure requiring hemodialysis
Acute severe metabolic acidosis.
Acute anemia secondary to blood loss with retroperitoneal hematoma
Conditions prior to admission:
Ulcerative colitis
CKD stage IIIa baseline creatinine 1.4.
Essential hypertension baseline ASCVD.
Diabetes type 2.
Plan:
#Acute left sided colitis/Sigmoid colitis..
Differential diagnosis ulcerative colitis flare, versus infection including C. difficile, versus ischemic.
Bacterial stool cultures negative to date
Stool for C. difficile positive for antigen negative for toxin.
Also on budesonide
Sigmoidoscopy unremarkable. Biopsy showed chronic inactive colitis with negative acute colitis/granulomas/dysplasia. Rectal biopsy showed chronic inactive colitis with no evidence for acute proctitis/granulomas/dysplasia.
Continue budesonide as per GI.
Advance diet.
Not on ABx
Appreciate GI input
# Hx of CKD stage IIIa baseline creatinine 1.4. Progressed to stage V
[place] with severe metabolic acidosis and hyperkalemia
Anuria
Initiated on HD.
renal biopsy on 01/27, result is pending.
Plavix held since 01/22.
# Acute blood loss with retroperitoneal hematoma
HGB stable around 7.9
Hemoglobin trending down to 6 after transfusion
Follow-up CT scan without contrast consistent with left respiratory hematoma with no connection to the kidney
Reviewed with interventional radiology. Given hemodynamic stability and radiologic findings less likely renal hematoma
Currently no indication for angiography.
Transfuse to keep hemoglobin above 7.5�8
No abd pain
The drop in hemoglobin happened on January 29 assuming the hematoma developed around that date. Can resume Plavix after 5 days with a stable hemoglobin level. Repeat hemoglobin on 02/02, if stable then can start Plavix on 02/03.
#Benign Hypertension
Back on blood pressure medications.
�- Discontinue SGLT2 inhibitor.
#ASCVD
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
�- Hold BP meds as noted above. Monitor hemodynamics with onset of HD.
�- IVF support / avoid hypotension.
#DM-II
Suspect lactic acidosis possibly secondary to euglycemic DKA with elevated beta hydroxybutyrate level in the settings of SGLT2 inhibitor
�- Stable.�discontinue Jardiance. No hypoglycemia. A.m. blood glucose around 147
�- Follow glucose and cover with SSI as needed.
�- A1C 6.9
DVT Prophylaxis:�Teds
Code Status:� Full
Patient requested to meet CM, I called BANDAR Rolle, she will see the pt.
Total time spent to see the patient, examine the patient on the floor, review data and lab results, discuss treatment plan with patient, nursing staff around 55 minutes
Anticipated Discharge: > 48 hours
Subjective/Interval History
-
Date of Service: February 02, 2024
Doing well, no complaints. She feels better today
No chest or abdominal pain
Objective Data
-
Labs:
Laboratory Results
02/02/24
06:10
WBC 17.1 H
Hgb 7.9 L
Hct 23.6 L
Plt Count 201 D
Sodium 135
Potassium 3.3 L
Chloride 103
Carbon Dioxide 25
BUN 46 H
Creatinine 6.5 H*
Glucose 150 H
Calcium 8.4
Vital Signs:
Vital Signs
Temp Pulse Resp BP Pulse Ox
98.3 F 77 16 147/64 95
02/02/24 07:00 02/02/24 07:00 02/02/24 07:00 02/02/24 07:00 02/02/24 07:00
I&O
02/01/24 02/02/24 02/03/24
05:59 06:59 06:59
Intake Total
Output Total
Balance
[2024-02-02 12:17] LABS: Glucose - Point of Care 170 mg/dl (70-99)
[2024-02-02] MEDS: NOVOLOG FLEXPEN-LOW RESISTANCE 1 UNITS SC (12:44)
[2024-02-02 15:00] VITALS: BP 122/56
[2024-02-02 16:49] LABS: Glucose - Point of Care 234 mg/dl (70-99)
[2024-02-02] MEDS: NOVOLOG FLEXPEN-LOW RESISTANCE 2 UNITS SC (16:52)
[2024-02-02] MEDS: XALATAN OPHTHALMIC SOLUTION 1 DROP RIGHT EYE (20:40)
[2024-02-02] MEDS: TYLENOL 650 MG PO (20:41)
[2024-02-02 21:49] LABS: Glucose - Point of Care 266 mg/dl (70-99)
[2024-02-02 23:33] VITALS: BP 115/66
[2024-02-03 06:00] VITALS: BMI 32.0
[2024-02-03 06:02] LABS: Hematocrit 23.8 % (37.0-47.0); Hemoglobin 7.8 g/dL (12.0-16.0); Mean Corp Hgb Conc. 32.8 g/dL (33.0-37.0); Mean Corpuscular Hgb 29.7 pg (27.0-31.0); Mean Corpuscular Volume 90.5 fL (81.0-99.0); Mean Platelet Volume 9.5 fL (7.4-10.4); Platelet Count 220 10^3/uL (130-400); Red Blood Cell Count 2.63 10^6/uL (4.20-5.40); Red Cell Dist. Width 17.9 % (11.5-14.5); White Blood Cell Count 13.9 10^3/uL (4.8-10.8)
[2024-02-03 06:38] LABS: Blood Urea Nitrogen 66 mg/dl (7-17); Calcium 8.9 mg/dl (8.4-10.2); Carbon Dioxide 23 mmol/L (22-30); Chloride 103 mmol/L (98-107); Estimated Creatinine Clearance 5 ml/min; Glucose 154 mg/dl (70-99); Potassium 3.6 mmol/L (3.5-5.1); Sodium 136 mmol/L (135-145); eGFR 4.96
[2024-02-03 07:26] LABS: Glucose - Point of Care 153 mg/dl (70-99)
[2024-02-03 08:10] VITALS: BP 158/71
[2024-02-03] MEDS: NOVOLOG FLEXPEN-LOW RESISTANCE SC ×3 (08:26→17:05)
[2024-02-03] MEDS: RETACRIT 10000 UNITS IV (10:04)
[2024-02-03] MEDS: TOPROL XL PO (10:12)
[2024-02-03] MEDS: NORVASC PO (10:12)
[2024-02-03] MEDS: ENTOCORT EC 9 MG PO (10:13)
[2024-02-03] MEDS: TRUSOPT 2% OPHTHALMIC SOLUTION 1 DROP RIGHT EYE ×2 (10:14→20:45)
[2024-02-03] MEDS: ALPHAGAN 0.2% EYE DROPS 1 DROP RIGHT EYE ×2 (10:14→20:45)
[2024-02-03] MEDS: TIMOPTIC 0.5% OPHTHALMIC SOLUTION 1 DROP RIGHT EYE (10:14)
--- NOTE | 2024-02-03 10:58 | W.PN.NEPH.PH ---
Today's Communication / Plan
-
Tunneled HD catheter today
Assessment/Plan
-
IMP:
Sigmoid Colitis
Ulcerative Colitis
Severe BR[place]-cr 1 in 2020
severe Anion Gap Metabolic Acidosis
Anemia
Leucocytosis
Hyponatremia
Benign Hypertension
CAD s/p stent 2017
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
DM-II
bladder ca
Plan:
-s/p biopsy 01/28-with ATN?
anemia from acute blood loss, CT with lateral left sided RP hematoma, appearing seperate from L kidney, holding palvix still.
-Hgb stable at 7.8, hopefully no active bleeding and no heparin with HD
-UOP might be improving, monitor for renal recovery
-planned for TDC on today and awaiting placement
BP stable on meds
-
-
Date of Service: February 03, 2024
CC / HPI / ROS
-
Chief Complaint:
[place]
History of Present Illness:
BP stable
s/p renal biopsy
anemia stable at 7.8
Review of Systems:
no CP/SOB
improving UOP
Labs
-
Labs:
WBC 13.9 10^3/uL (4.8-10.8) H 02/03/24 05:30
RBC 2.63 10^6/uL (4.20-5.40) L 02/03/24 05:30
Hgb 7.8 g/dL (12.0-16.0) L 02/03/24 05:30
Hct 23.8 % (37.0-47.0) L 02/03/24 05:30
Plt Count 220 10^3/uL (130-400) 02/03/24 05:30
Sodium 136 mmol/L (135-145) 02/03/24 05:30
Potassium 3.6 mmol/L (3.5-5.1) 02/03/24 05:30
Chloride 103 mmol/L (98-107) 02/03/24 05:30
Carbon Dioxide 23 mmol/L (22-30) 02/03/24 05:30
BUN 66 mg/dl (7-17) H 02/03/24 05:30
Creatinine 7.6 mg/dL (0.6-1.0) H* 02/03/24 05:30
eGFR 4.96 02/03/24 05:30
Glucose 154 mg/dl (70-99) H 02/03/24 05:30
Calcium 8.9 mg/dl (8.4-10.2) 02/03/24 05:30
Phosphorus 6.3 mg/dl (2.5-4.5) H 01/23/24 08:16
Albumin 2.8 g/dl (3.5-5.0) L 01/23/24 08:16
Physical Exam
-
Vital Signs:
Vital Signs
Temp Pulse Resp BP Pulse Ox
98.3 F 68 16 158/71 97
02/02/24 23:33 02/03/24 08:10 02/03/24 08:10 02/03/24 08:10 02/03/24 08:10
--- NOTE | 2024-02-03 11:04 | W.PN.NEPH.HD ---
Assessment
-
pt seen during HD
vitals stable
monitor pre HD cr, still high
for TDC today
high dose AMRITA for anemia
Progress Note - Hemodialysis
-
Date of Service: February 03, 2024
Duration: 30 minutes and 3 hours
Potassium Bath: 3
Calcium Bath: 2.5
Opti-Dialyzer: 160
Ultrafiltration: Other (1kg)
Blood Flow: 400
Dialysate Flow: 600
Heparin: no
EPO: [id number]
--- NOTE | 2024-02-03 11:52 | CM ---
Pt needs out-patient HD site/chair
Received call from Mayelin at [facility] ([phone]) requesting records be faxed to be reviewed by medical scribe
Clinical information faxed to [phone]
Attempted to speak with pt - receiving HD
CM cont to follow
[2024-02-03 12:04] LABS: Glucose - Point of Care 110 mg/dl (70-99)
[2024-02-03 12:55] VITALS: BP 158/71; PULSE 68; O2SAT 97
[2024-02-03 14:33] VITALS: BP 166/64; BP_SYST 72
[2024-02-03] MEDS: FLUSH (NSS) 1 FLUSH IV (14:51)
[2024-02-03] MEDS: ANCEF 10 IV (14:51)
[2024-02-03 15:05] VITALS: BP 152/80
[2024-02-03 15:58] VITALS: BP 158/57
--- NOTE | 2024-02-03 16:43 | W.PN.HOSP.TC ---
Today's Communication/Plan
-
Tunneled HD catheter
Monitor hemoglobin
If stable hemoglobin consider restart Plavix on 02/03.
Discharge planing with outpatient HD arrangements
Assessment / Plan
Assessment / Plan
Impression:
Sigmoid colitis secondary to ulcerative colitis exacerbation
Acute kidney failure with anuria and severe metabolic acidosis requiring initiation of renal replacement therapy.
Acute anemia secondary to blood loss with retroperitoneal hematoma.
Euglycemic DKA.
Conditions prior to admission:
Ulcerative colitis
CKD stage IIIa with baseline creatinine 1.40
Essential hypertension
Diabetes type 2.
Plan:
Acute left-sided colitis
Negative ID workup with stool negative for C. difficile (toxin negative antigen positive) stool cultures negative.
Status post sigmoidoscopy pending biopsy
Initiated on budesonide. Plan is to continue for 3 months with outpatient taper as per GI.
Diet has been advanced.
Completed total of 7 days of antibiotic therapy including oral vancomycin.
[place] with anuria and severe metabolic acidosis.
Initiated on HD
Status post renal biopsy 01/[address]
For tunneled HD catheter on 02/02
Acute blood loss anemia secondary to retroperitoneal hematoma
CT scan consistent with left reported inguinal hematoma not communicated to renal parenchyma
Plavix currently on hold for 5 days prior to biopsy on 01/27. Remains on hold for additional 5 days from hematoma diagnosis approximately 16/11
This posttransfusion 1 unit of packed red blood cells
Monitor hemoglobin
Benign hypertension
Monitor BP while on HD
Continue metoprolol and Norvasc.
Diabetes type 2.
Hemoglobin A1c 6.9
DVT with euglycemia secondary to SGLT2 inhibitor.
Has been off Jardiance
Remains relatively euglycemic
Monitor blood glucose
Consider initiation of Januvia prior to discharge.
History of CVA.
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
Restart as above
Anticipated Discharge: 24 - 48 hours
Subjective/Interval History
-
Date of Service: February 03, 2024
Objective Data
-
Labs:
Laboratory Results
02/03/24
05:30
WBC 13.9 H
Hgb 7.8 L
Hct 23.8 L
Plt Count 220
Sodium 136
Potassium 3.6
Chloride 103
Carbon Dioxide 23
BUN 66 H
Creatinine 7.6 H*
Glucose 154 H
Calcium 8.9
Vital Signs:
Vital Signs
Temp Pulse Resp BP Pulse Ox
98.2 F 69 18 158/57 93
02/03/24 15:58 02/03/24 15:58 02/03/24 15:58 02/03/24 15:58 02/03/24 15:05
I&O
02/02/24 02/03/24 02/04/24
06:59 06:59 06:59
Intake Total 620 / 620 50 / 50
Output Total
Balance 620 / 620 50 / 50
Physical Exam
-
General: Well Developed and No Apparent Distress
HEENT: Normocephalic, Atraumatic and Moist Mucous Membranes
Respiratory: Clear to Auscultation
Cardiac: Regular Rhythm and S1/S2; Negative Murmur, Rub or Gallop
GI: Soft, Nontender, Nondistended and Normal Bowel Sounds; Negative Organomegaly
Rectal: Deferred by Provider
Musculoskeletal: No Clubbing, No Cyanosis and No Edema
Skin: Negative Rash
Neuro: Nonfocal/Grossly Intact
[2024-02-03 16:46] LABS: Glucose - Point of Care 117 mg/dl (70-99)
[2024-02-03] MEDS: TYLENOL 650 MG PO ×2 (18:26→22:43)
[2024-02-03] MEDS: XALATAN OPHTHALMIC SOLUTION 1 DROP RIGHT EYE (21:32)
[2024-02-03 21:44] LABS: Glucose - Point of Care 281 mg/dl (70-99)
[2024-02-03 23:28] VITALS: BP 133/63
[2024-02-04] MEDS: TYLENOL 650 MG PO ×3 (04:05→21:23)
[2024-02-04 06:00] VITALS: BMI 31.1
[2024-02-04 07:26] VITALS: BP 148/70
[2024-02-04] MEDS: NOVOLOG FLEXPEN-LOW RESISTANCE 1 UNITS SC ×2 (08:13→17:40)
[2024-02-04] MEDS: TIMOPTIC 0.5% OPHTHALMIC SOLUTION 1 DROP RIGHT EYE (08:14)
[2024-02-04] MEDS: TRUSOPT 2% OPHTHALMIC SOLUTION 1 DROP RIGHT EYE ×2 (08:14→20:04)
[2024-02-04] MEDS: TOPROL XL 50 MG PO (08:14)
[2024-02-04] MEDS: ALPHAGAN 0.2% EYE DROPS 1 DROP RIGHT EYE ×2 (08:14→20:04)
[2024-02-04] MEDS: ENTOCORT EC 9 MG PO (08:15)
[2024-02-04] MEDS: NORVASC 5 MG PO (08:15)
[2024-02-04] MEDS: JANUVIA 25 MG PO (11:19)
[2024-02-04 11:45] LABS: Glucose - Point of Care 143 mg/dl (70-99)
--- NOTE | 2024-02-04 12:02 | CM ---
CM following for d/c planning
Received HD chair time and location from [facility]
Confirmed time 10:15, location - [place] [address], [facility] [address]
Discussed with pt. Pt agreeable to location - she is familiar with area.
Dr Aquino aware
CM will continue to follow for d/c needs
Plan - home with [facility]
[2024-02-04] MEDS: NOVOLOG FLEXPEN-LOW RESISTANCE SC (12:10)
[2024-02-04 12:44] LABS: Hemoglobin 9.6 g/dL (12.0-16.0)
[2024-02-04 15:30] VITALS: BP 148/61
--- NOTE | 2024-02-04 15:52 | W.PN.NEPH.PH ---
Today's Communication / Plan
-
HD tomorrow
Assessment/Plan
-
IMP:
Sigmoid Colitis
Ulcerative Colitis
Severe [place]-cr 1 in 2020
severe Anion Gap Metabolic Acidosis
Anemia
Leucocytosis
Hyponatremia
Benign Hypertension
CAD s/p stent 2017
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
DM-II
bladder ca
Acute anemia with retroperitoneal bleed post K biopsy
01/29/24 Kidney biopsy:
ATN -diffuse
mild Diabetic glomerulo sclerosis
IFTA mild to mod
Arterio and arteriolosclerosis -mod, focal cholesterol emboli
Plan:
-s/p biopsy 01/28-with ATN and mild MD changes
anemia from acute blood loss-hb better at 9.6
left sided RP hematoma, plan resuming plavix per primary
no heparin with HD still
Subjectively UOP might be improving-measure UOP, monitor for renal recovery
BP stable on meds
changed to TDC on 02/02, and HD unit [facility] [place]
d/w pt in detail
-
-
Date of Service: February 04, 2024
CC / HPI / ROS
-
Chief Complaint:
[place]
History of Present Illness:
BP stable
s/p renal biopsy
anemia better at 9.6
Review of Systems:
no CP/SOB
improving UOP
Labs
-
Labs:
WBC 13.9 10^3/uL (4.8-10.8) H 02/03/24 05:30
RBC 2.63 10^6/uL (4.20-5.40) L 02/03/24 05:30
Hgb 9.6 g/dL (12.0-16.0) L D 02/04/24 12:39
Hct 23.8 % (37.0-47.0) L 02/03/24 05:30
Plt Count 220 10^3/uL (130-400) 02/03/24 05:30
Sodium 136 mmol/L (135-145) 02/03/24 05:30
Potassium 3.6 mmol/L (3.5-5.1) 02/03/24 05:30
Chloride 103 mmol/L (98-107) 02/03/24 05:30
Carbon Dioxide 23 mmol/L (22-30) 02/03/24 05:30
BUN 66 mg/dl (7-17) H 02/03/24 05:30
Creatinine 7.6 mg/dL (0.6-1.0) H* 02/03/24 05:30
eGFR 4.96 02/03/24 05:30
Glucose 154 mg/dl (70-99) H 02/03/24 05:30
Calcium 8.9 mg/dl (8.4-10.2) 02/03/24 05:30
Phosphorus 6.3 mg/dl (2.5-4.5) H 01/23/24 08:16
Albumin 2.8 g/dl (3.5-5.0) L 01/23/24 08:16
Physical Exam
-
Vital Signs:
Vital Signs
Temp Pulse Resp BP Pulse Ox
98 F 76 16 148/61 99
02/04/24 15:30 02/04/24 15:30 02/04/24 15:30 02/04/24 15:30 02/04/24 15:30
Cardiovascular:: Regular rate and rhythm
Respiratory:: Bilateral: CTA
Lung Excursion:: Normal
Abdomen:: Nontender and Soft
Extremity Edema:: None: Bilateral:
Smith Catheter: No
[2024-02-04] MEDS: PLAVIX 75 MG PO (16:54)
[2024-02-04 16:57] LABS: Glucose - Point of Care 193 mg/dl (70-99)
--- NOTE | 2024-02-04 17:26 | W.PN.HOSP.TC ---
Today's Communication/Plan
-
Start Plavix.
Start Januvia.
HD in a.m.
Assessment / Plan
Assessment / Plan
Impression:
Sigmoid colitis secondary to ulcerative colitis exacerbation
Acute kidney failure with anuria and severe metabolic acidosis requiring initiation of renal replacement therapy.
Acute anemia secondary to blood loss with retroperitoneal hematoma.
Euglycemic DKA.
Conditions prior to admission:
Ulcerative colitis
CKD stage IIIa with baseline creatinine 1.40
Essential hypertension
Diabetes type 2.
Plan:
Acute left-sided colitis
Negative ID workup with stool negative for C. difficile (toxin negative antigen positive) stool cultures negative.
Status post sigmoidoscopy pending biopsy
Initiated on budesonide. Plan is to continue for 3 months with outpatient taper as per GI.
Diet has been advanced.
Completed total of 7 days of antibiotic therapy including oral vancomycin.
[place] with anuria and severe metabolic acidosis.
Initiated on HD
Status post renal biopsy 01/27 pending path
tunneled HD catheter on 02/02
Acute blood loss anemia secondary to retroperitoneal hematoma
CT scan consistent with left reported inguinal hematoma not communicated to renal parenchyma
Plavix currently on hold for 5 days prior to biopsy on 01/27. Remains on hold for additional 5 days from hematoma diagnosis approximately 16/11
This posttransfusion 1 unit of packed red blood cells
Hemoglobin stable at 9.6
Okay to resume Plavix on 02/03.
Benign hypertension
Monitor BP while on HD
Continue metoprolol and Norvasc.
Diabetes type 2.
Hemoglobin A1c 6.9
DVT with euglycemia secondary to SGLT2 inhibitor.
Has been off Jardiance
Remains relatively euglycemic
Monitor blood glucose
Start Januvia
History of CVA.
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
Restart as above
Anticipated Discharge: Within 24 hours
Subjective/Interval History
-
Date of Service: February 04, 2024
Objective Data
-
Labs:
Laboratory Results
02/04/24
12:39
Hgb 9.6 L D
Vital Signs:
Vital Signs
Temp Pulse Resp BP Pulse Ox
98 F 76 16 148/61 99
02/04/24 15:30 02/04/24 15:30 02/04/24 15:30 02/04/24 15:30 02/04/24 15:30
I&O
02/03/24 02/04/24 02/05/24
06:59 06:59 06:59
Intake Total 620 / 620 290 / 290
Balance 620 / 620 290 / 290
Physical Exam
-
General: Well Developed and No Apparent Distress
HEENT: Normocephalic, Atraumatic and Moist Mucous Membranes
Respiratory: Clear to Auscultation
Cardiac: Regular Rhythm and S1/S2; Negative Murmur, Rub or Gallop
GI: Soft, Nontender, Nondistended and Normal Bowel Sounds; Negative Organomegaly
Rectal: Deferred by Provider
Musculoskeletal: No Clubbing, No Cyanosis and No Edema
Skin: Negative Rash
Neuro: Nonfocal/Grossly Intact
[2024-02-04] MEDS: XALATAN OPHTHALMIC SOLUTION 1 DROP RIGHT EYE (21:21)
[2024-02-04 21:28] LABS: Glucose - Point of Care 214 mg/dl (70-99)
[2024-02-04 23:00] VITALS: BP 125/54
[2024-02-05 06:00] VITALS: BMI 31.1
[2024-02-05 07:19] LABS: Glucose - Point of Care 127 mg/dl (70-99)
[2024-02-05] MEDS: NOVOLOG FLEXPEN-LOW RESISTANCE SC ×2 (07:43→12:10)
[2024-02-05] MEDS: ALPHAGAN 0.2% EYE DROPS 1 DROP RIGHT EYE ×2 (07:43→21:17)
[2024-02-05] MEDS: TIMOPTIC 0.5% OPHTHALMIC SOLUTION 1 DROP RIGHT EYE (07:43)
[2024-02-05] MEDS: TRUSOPT 2% OPHTHALMIC SOLUTION 1 DROP RIGHT EYE ×2 (07:44→21:17)
[2024-02-05 07:55] VITALS: BP 158/73
[2024-02-05] MEDS: HEPARIN 500 UNITS IV ×2 (08:05→09:05)
[2024-02-05 08:31] LABS: Hemoglobin 8.6 g/dL (12.0-16.0)
[2024-02-05 08:45] LABS: Carbon Dioxide 26 mmol/L (22-30); Chloride 102 mmol/L (98-107); Potassium 3.1 mmol/L (3.5-5.1); Sodium 136 mmol/L (135-145)
[2024-02-05] MEDS: RETACRIT 6000 UNITS IV (11:00)
[2024-02-05] MEDS: HEPARIN 3900 UNITS INTRACATH (11:37)
--- NOTE | 2024-02-05 11:46 | W.PN.NEPH.HD ---
Assessment
-
- some increased UOP noted
- hopeful for renal recovery
Progress Note - Hemodialysis
-
Date of Service: February 05, 2024
Duration: 30 minutes and 3 hours
Potassium Bath: 4
Calcium Bath: 2.5
Opti-Dialyzer: 160
Ultrafiltration: Other
Blood Flow: 400
Dialysate Flow: 600
[2024-02-05 12:05] LABS: Glucose - Point of Care 100 mg/dl (70-99)
[2024-02-05] MEDS: JANUVIA 25 MG PO (12:17)
[2024-02-05] MEDS: TOPROL XL 50 MG PO (12:17)
[2024-02-05] MEDS: PLAVIX 75 MG PO (12:17)
[2024-02-05] MEDS: ENTOCORT EC 9 MG PO (12:17)
[2024-02-05] MEDS: NORVASC 5 MG PO (12:17)
[2024-02-05] MEDS: TYLENOL 650 MG PO ×2 (12:18→21:16)
--- NOTE | 2024-02-05 14:39 | W.PN.HOSP.TC ---
Today's Communication/Plan
-
Ongoing disposition arrangements including outpatient HD set up
Assessment / Plan
Assessment / Plan
Impression:
Sigmoid colitis secondary to ulcerative colitis exacerbation
Acute kidney failure with anuria and severe metabolic acidosis requiring initiation of renal replacement therapy.
Acute anemia secondary to blood loss with retroperitoneal hematoma.
Euglycemic DKA.
Conditions prior to admission:
Ulcerative colitis
CKD stage IIIa with baseline creatinine 1.40
Essential hypertension
Diabetes type 2.
Plan:
Acute left-sided colitis
Negative ID workup with stool negative for C. difficile (toxin negative antigen positive) stool cultures negative.
Status post sigmoidoscopy pending biopsy
Initiated on budesonide. Plan is to continue for 3 months with outpatient taper as per GI.
Diet has been advanced.
Completed total of 7 days of antibiotic therapy including oral vancomycin.
BR[place] with anuria and severe metabolic acidosis.
Initiated on HD
Status post renal biopsy 01/27 [address] path
tunneled HD catheter on 02/02
Acute blood loss anemia secondary to retroperitoneal hematoma
CT scan consistent with left reported inguinal hematoma not communicated to renal parenchyma
Plavix currently on hold for 5 days prior to biopsy on 01/27. Remains on hold for additional 5 days from hematoma diagnosis approximately 16/11
This posttransfusion 1 unit of packed red blood cells
Hemoglobin stable at 9.6
Okay to resume Plavix on 02/03.
Benign hypertension
Monitor BP while on HD
Continue metoprolol and Norvasc.
Diabetes type 2.
Hemoglobin A1c 6.9
DVT with euglycemia secondary to SGLT2 inhibitor.
Has been off Jardiance
Remains relatively euglycemic
Monitor blood glucose
Start Januvia
History of CVA.
On Plavix RECEIVING LEAD.
Restart as above
Anticipated Discharge: Within 24 hours
Subjective/Interval History
-
Date of Service: February 05, 2024
Objective Data
-
Labs:
Laboratory Results
02/05/24
08:18
Hgb 8.6 L
Sodium 136
Potassium 3.1 L
Chloride 102
Carbon Dioxide 26
Vital Signs:
Vital Signs
Temp Pulse Resp BP Pulse Ox
98.3 F 73 18 140/66 94
02/05/24 07:55 02/05/24 12:17 02/05/24 07:55 02/05/24 12:17 02/05/24 07:55
I&O
02/04/24 02/05/24 02/06/24
06:59 06:59 06:59
Intake Total 290 / 290 720 / 720
Output Total 325 / 325
Balance 290 / 290 395 / 395
Physical Exam
-
General: Well Developed and No Apparent Distress
HEENT: Normocephalic, Atraumatic and Moist Mucous Membranes
Respiratory: Clear to Auscultation
Cardiac: Regular Rhythm and S1/S2; Negative Murmur, Rub or Gallop
GI: Soft, Nontender, Nondistended and Normal Bowel Sounds; Negative Organomegaly
Rectal: Deferred by Provider
Musculoskeletal: No Clubbing, No Cyanosis and No Edema
Skin: Negative Rash
Neuro: Nonfocal/Grossly Intact
--- NOTE | 2024-02-05 15:13 | CM ---
BANDAR spoke with Mayelin at [facility] ([phone])
Per Mayelin - the medical office representative at [facility] has not reviewed clinical info, must be reviewed and accepted before pt can receive HD
Mayelin will notify electronics department manager when pt is approved
Medical team made aware
Spoke with pt - made aware. Verified HD MWF at 10:15AM
BANDAR called Melody at [facility] [phone] - notified pt remains inpatient
Plan - home with [facility] when medically stable
Fax - [phone]
[2024-02-05 15:34] VITALS: BP 114/53
[2024-02-05 16:42] VITALS: BP 129/59; PULSE 77; O2SAT 97
--- NOTE | 2024-02-05 16:47 | PTOTSP ---
Pt currently at mod I level with basic self care, transfers and functional mobility in room and bathroom without AD. No further skilled OT indicated at this time.
[2024-02-05 17:10] LABS: Glucose - Point of Care 162 mg/dl (70-99)
[2024-02-05] MEDS: NOVOLOG FLEXPEN-LOW RESISTANCE 1 UNITS SC (17:48)
[2024-02-05] MEDS: XALATAN OPHTHALMIC SOLUTION 1 DROP RIGHT EYE (21:18)
[2024-02-05 21:37] LABS: Glucose - Point of Care 216 mg/dl (70-99)
[2024-02-05 23:00] VITALS: BP 106/58
[2024-02-06 06:00] VITALS: BMI 30.2
[2024-02-06 07:00] VITALS: BP 124/65
[2024-02-06 07:45] LABS: % Basophils 0.3 % (0-2); % Eosinophils 0.3 % (0-6); % Immature Granulocytes 1.2 % (0-0.5); % Lymphocytes 23.7 % (20.5-51.1); % Monocytes 23.1 % (1.7-9.3); % Neutrophils 51.4 % (42.2-75.2); Absolute Immature Granulocytes 0.1 10^3/uL (0-0.05); Absolute Lymphocytes 2.7 10^3/uL (1.2-3.4); Absolute Monocytes 2.6 10^3/uL (0.1-0.6); Absolute Neutrophils 5.9 10^3/uL (1.4-6.5); Hematocrit 27.8 % (37.0-47.0); Hemoglobin 9.1 g/dL (12.0-16.0); Mean Corp Hgb Conc. 32.7 g/dL (33.0-37.0); Mean Corpuscular Hgb 30.3 pg (27.0-31.0); Mean Corpuscular Volume 92.7 fL (81.0-99.0); Mean Platelet Volume 9.1 fL (7.4-10.4); Nucleated Red Blood Cells % 0 %; Platelet Count 261 10^3/uL (130-400); Red Cell Dist. Width 18.6 % (11.5-14.5); White Blood Cell Count 11.4 10^3/uL (4.8-10.8)
[2024-02-06 08:01] LABS: Glucose - Point of Care 110 mg/dl (70-99)
[2024-02-06 08:10] LABS: Absolute Neutrophils -Man Diff 5.9 10^3/uL (1.4-6.5); Band Neutrophils 0 % (0-3); Lymphocytes 28 % (20-51); Metamyelocytes 1 % (-); Monocytes 19 % (2-9); Platelets Checked Yes; Segmented Neutrophils 52 % (42-75)
[2024-02-06 08:11] LABS: Anisocytosis 1+; Hypochromasia 1+; Normal RBC Morphology No; Ovalocytes FEW; Polychromasia 1+; Stomatocytes FEW; Total Cells Counted 100
[2024-02-06 09:02] VITALS: BP 130/70; PULSE 82
[2024-02-06] MEDS: NOVOLOG FLEXPEN-LOW RESISTANCE SC (09:24)
[2024-02-06] MEDS: ENTOCORT EC 9 MG PO (09:27)
[2024-02-06] MEDS: PLAVIX 75 MG PO (09:27)
[2024-02-06] MEDS: JANUVIA 25 MG PO (09:27)
[2024-02-06] MEDS: NORVASC 5 MG PO (09:27)
[2024-02-06] MEDS: ALPHAGAN 0.2% EYE DROPS 1 DROP RIGHT EYE (09:28)
[2024-02-06] MEDS: TRUSOPT 2% OPHTHALMIC SOLUTION 1 DROP RIGHT EYE (09:28)
[2024-02-06] MEDS: TOPROL XL 50 MG PO (09:28)
[2024-02-06] MEDS: TIMOPTIC 0.5% OPHTHALMIC SOLUTION 1 DROP RIGHT EYE (09:29)
--- NOTE | 2024-02-06 10:53 | CM ---
Received call from Mayelin at [facility]
Pt has been cleared for HD
Chair time 10:15 AM MWF
Home care - accepted by [facility]
Dr Aquino made aware
Plan - home with [facility] when medically stable
Fax - [phone]
[2024-02-06 12:16] LABS: Glucose - Point of Care 171 mg/dl (70-99)
[2024-02-06] MEDS: NOVOLOG FLEXPEN-LOW RESISTANCE 1 UNITS SC (12:21)
--- NOTE | 2024-02-06 12:57 | W.DS.TRANS ---
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
-
Discharge Instructions:
Discharge Diagnosis/Procedures Impression:
Sigmoid colitis secondary to ulcerative colitis
exacerbation
Acute kidney failure with anuria and severe
metabolic acidosis requiring initiation of renal
replacement therapy.
Acute anemia secondary to blood loss with
retroperitoneal hematoma.
Euglycemic DKA.
Conditions prior to admission:
Ulcerative colitis
CKD stage IIIa with baseline creatinine 1.40
Essential hypertension
Diabetes type 2.
Diet Diabetic, Carb Controlled
Instructions:
Stand-Alone Forms:
Changes to Home Medications: Yes
Discharge Medications:
DC Medications w/original date entered in [employer]
rosuvastatin 40 mg tablet (Crestor) 40 mg PO HS High cholesterol 01/03/21
clopidogrel 75 mg tablet 75 mg PO DAILY #30 tabs 01/07/21
lorazepam 0.5 mg tablet 0.5 mg PO Q4HPRN PRN ANXIETY 02/08/21
latanoprost 0.005 % eye drops 1 drp RIGHT EYE HS Eye condition 02/16/21
metoprolol succinate 50 mg tablet,extended release 24 hr 50 mg PO DAILY Blood Pressure 02/16/21
timolol maleate 0.5 % eye drops 1 drp RIGHT EYE DAILY Eye condition 02/16/21
brimonidine 0.2 % eye drops 1 drp RIGHT EYE BID Eye Condition 01/21/24
dorzolamide 2 % eye drops 1 drp RIGHT EYE BID Eye Condition 01/22/24
amlodipine 5 mg tablet 5 mg PO DAILY #30 tabs 02/06/24
budesonide 3 mg capsule,delayed,extended release 9 mg PO DAILY #90 ea 02/06/24
sitagliptin phosphate 50 mg tablet (Januvia) 25 mg PO DAILY #30 tabs 02/06/24
Home Medication Changes
Jardiance and lisinopril stopped
Budesonide, Amlodipine, Januvua started.
Pending Results: No
== END 2024-02-06 16:00 | disposition home health service (06) | DRG 385 ==
LOC: 3 WEST ACU 21:51
PROVIDERS: Clinical Nurse Specialist Family Health; Emergency Medicine; Internal Medicine; Nurse Practitioner Adult Health; Nurse Practitioner Family; Physician Assistant; Radiology Diagnostic Radiology; Radiology Vascular & Interventional Radiology; Registered Nurse; Specialist; Student in an Organized Health Care Education/Training Program; ADMITTING PHYSICIAN Hospitalist; ATTENDING PHYSICIAN Internal Medicine; CONSULT PHYSICIAN Internal Medicine Gastroenterology; EMERGENCY PHYSICIAN Emergency Medicine; FAMILY PHYSICIAN Family Medicine; OTHER PHYSICIAN Internal Medicine
PROC: 02H633Z Insertion of Infusion Device into Right Atrium, Percutaneous Approach (ICD-10-PCS; 2024-01-22)
PROC: 5A1D70Z Performance of Urinary Filtration, Intermittent, Less than 6 Hours Per Day (ICD-10-PCS; 2024-01-23)
PROC: 0DBP8ZX Excision of Rectum, Via Natural or Artificial Opening Endoscopic, Diagnostic (ICD-10-PCS; 2024-01-27)
PROC: 0DBN8ZX Excision of Sigmoid Colon, Via Natural or Artificial Opening Endoscopic, Diagnostic (ICD-10-PCS; 2024-01-27)
PROC: 30233N1 Transfusion of Nonautologous Red Blood Cells into Peripheral Vein, Percutaneous Approach (ICD-10-PCS; 2024-01-28)
PROC: 0TB03ZX Excision of Right Kidney, Percutaneous Approach, Diagnostic (ICD-10-PCS; 2024-01-28)
PROC: 0JH63XZ Insertion of Tunneled Vascular Access Device into Chest Subcutaneous Tissue and Fascia, Percutaneous Approach (ICD-10-PCS; 2024-02-03)
DX: K51.50 Left sided colitis without complications (principal); E11.10 Type 2 diabetes mellitus with ketoacidosis without coma; K68.3 Retroperitoneal hematoma; N17.0 Acute kidney failure with tubular necrosis; D62 Acute posthemorrhagic anemia; E87.1 Hypo-osmolality and hyponatremia; K91.871 Postprocedural hematoma of a digestive system organ or structure following other procedure; I25.10 Atherosclerotic heart disease of native coronary artery without angina pectoris; I65.23 Occlusion and stenosis of bilateral carotid arteries; E11.22 Type 2 diabetes mellitus with diabetic chronic kidney disease; E78.00 Pure hypercholesterolemia, unspecified; F41.9 Anxiety disorder, unspecified; N18.31 Chronic kidney disease, stage 3a; Y84.8 Other medical procedures as the cause of abnormal reaction of the patient, or of later complication, without mention of misadventure at the time of the procedure; I69.398 Other sequelae of cerebral infarction; H54.61 Unqualified visual loss, right eye, normal vision left eye; I12.9 Hypertensive chronic kidney disease with stage 1 through stage 4 chronic kidney disease, or unspecified chronic kidney disease; I25.2 Old myocardial infarction; Z79.02 Long term (current) use of antithrombotics/antiplatelets; Z79.84 Long term (current) use of oral hypoglycemic drugs; Z79.899 Other long term (current) drug therapy; Z82.49 Family history of ischemic heart disease and other diseases of the circulatory system; Z85.51 Personal history of malignant neoplasm of bladder; Z87.891 Personal history of nicotine dependence; Z95.5 Presence of coronary angioplasty implant and graft
CPT/HCPCS: 88305; 36556; 36558; 50200; 74176; 76937; 76942; 77001; 80048; 80051; 80053; 81003; 81015; 81050; 82010; 82570; 82728; 82962; 83036; 83516; 83521; 83540; 83550; 83605; 83735; 83993; 84100; 84155; 84156; 84165; 84443; 85014; 85018; 85025; 85027; 85610; 85652; 86038; 86140; 86160; 86335; 86704; 86706; 86803; 86850; 86900; 86901; 86920; 87040; 87045; 87046; 87324; 87328; 87329; 87340; 87427; 87449; 87798; 89055; 96361; 96365; 97116; 97163; 97167; 97530; 97535; 99152; 99153; 99285; C1750; C1752; G0257; J2916; P9016; P9047; Q5106

== ENCOUNTER 2024-02-23 15:54 | Inpatient (IN) | payer MEDICARE, OTHER, SELFPAY ==
[2024-02-23] VITALS (12 sets, daily range): BP systolic 113–157; BP diastolic 46–78; BMI 28.6
[2024-02-23 11:36] LABS: Hemoglobin 8.2 g/dL (12.0-16.0); Mean Corp Hgb Conc. 32.8 g/dL (33.0-37.0); Mean Corpuscular Hgb 29.3 pg (27.0-31.0); Mean Corpuscular Volume 89.3 fL (81.0-99.0); Mean Platelet Volume 9.5 fL (7.4-10.4); Nucleated Red Blood Cells % 0 %; Platelet Count 169 10^3/uL (130-400); Red Cell Dist. Width 19.2 % (11.5-14.5); White Blood Cell Count 22.3 10^3/uL (4.8-10.8)
--- NOTE | 2024-02-23 12:06 | ED.GENMED ---
History of Present Illness
General
Chief Complaint: Dehydration Symptoms
Source: patient and family
Exam Limitations: none
Time Seen by Provider: 02/23/24 11:09
Nursing documentation reviewed up to this point in time: agreed with
Travel History
Have you had any contact with someone who has COVID-19?: No
Do you have any symptoms of coronavirus? Fever > 100 degrees, chills, cough, shortness of breath, sore throat, loss of taste or smell, muscle aches, or headache?: No
History of Present Illness
History of Present Illness:
Patient is an 83-year-old female with past medical history of ulcerative colitis chronic kidney disease now on dialysis, hypertension diabetes sigmoid colitis anemia presents to the ER for evaluation. Patient was recently admitted for sigmoid
colitis secondary to her ulcerative colitis exacerbation. At that time she also developed an acute kidney injury and was started on dialysis.While patient was here during admission she did have a kidney biopsy and after biopsy did develop a
retroperitoneal hematoma became anemic. She was transfused at that time 1 unit of packed red blood cells and hemoglobin was found to be 9 at the day of discharge. Patient is back on Plavix. She was January 21 discharged February 05. She reports
she developed C. difficile several days after being hospitalized and was initially treated with Dificid without improvement and then switched to vancomycin. She just started vancomycin this , 3 days ago. She continues to complain of
diarrhea although reports it seems to be improving but she feels very weak and fatigued. Son at bedside reports she cannot function on her own because she is so fatigued and weak.
She denies any fevers
Past History
Past History
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
ED Past Surgical History: Cardiac (Stent), Urological (Bladder tumor removed, ) and Other (Right and left Carotid endarterectomy)
Social History
Tobacco: Non-smoker
Alcohol: Occasional
Personal:
Living: alone
Phy Exam
General Physical Exam
General Presentation: no apparent distress
General age: appears stated age
General Skin: warm and dry
General Habitus: normal
General Mental: alert
General Hydration: dry mucous membranes
Cardiovascular Exam
Cardiovascular Exam: regular rate/rhythm, no murmur and normal peripheral pulses
Neurological Exam
Neurological Exam: alert and oriented x3
Musculoskeletal Exam
Musculoskeletal Exam: full ROM
Skin Exam
Skin Exam: normal color and warm/dry
Psychiatric Exam
Psychiatric Exam: normal mood/affect
Course
Orders/Labs/Results
Orders:
Orders
02/23/24 11:17
Complete Blood Count/With Diff Urgent
Comprehensive Metabolic Panel Urgent
Manual Differential Urgent
02/23/24 12:11
0.9% Sodium Chloride 500 ml [Nss] 500 ml IV BOLUS
02/23/24 14:07
Potassium Chloride 10% Elixir [KCl Elixir] 40 meq PO NOW STA
02/23/24 14:15
UA Reflex to Culture [Urinalysis Reflex To Culture] Urgent
02/23/24 14:42
Blood Culture Q30M
SAMSON Source: Blood/Venous
Specimen Description:
02/23/24 15:00
Blood Culture Q30M
SAMSON Source: Blood/Venous
Specimen Description:
02/23/24 15:19
Add On- LAB Urgent
Tests Added?: magnesium
Abnormal Lab Results
02/23/24
11:17
WBC 22.3 H 10^3/uL
(4.8-10.8)
RBC 2.80 L 10^6/uL
(4.20-5.40)
Hgb 8.2 L g/dL
(12.0-16.0)
Hct 25.0 L %
(37.0-47.0)
MCHC 32.8 L g/dL
(33.0-37.0)
RDW 19.2 H %
(11.5-14.5)
Abs Neuts (Manual) 16.9 H 10^3/uL
(1.4-6.5)
Band Neutrophils 7 H %
(0-3)
Lymphocytes (Manual) 8 L %
(20-51)
Sodium 133 L mmol/L
(135-145)
Potassium 3.0 L mmol/L
(3.5-5.1)
BUN 24 H mg/dl
(7-17)
Creatinine 4.4 H* mg/dL
(0.6-1.0)
AST 50 H U/L
(14-36)
ALT 54 H U/L
(0-35)
Alkaline Phosphatase 195 H U/L
(38-126)
Albumin 3.3 L g/dl
(3.5-5.0)
02/23/24 11:17
02/23/24 11:17
Vital Signs
Initial and Last Documented VS:
Initial Vital Signs
Temp Pulse Resp BP Pulse Ox
98.7 F 82 18 153/65 98
02/23/24 09:38 02/23/24 09:38 02/23/24 09:38 02/23/24 09:38 02/23/24 09:38
Last Documented Vital Signs
Temp Pulse Resp BP Pulse Ox
98.7 F 93 13 113/46 96
02/23/24 09:38 02/23/24 15:00 02/23/24 15:00 02/23/24 14:00 02/23/24 15:00
Stitcher Around consulted with Physician
Stitcher Around consulted with physician?: Yes
Name of Physician Consulted: Lavon
MDM/Problems Addressed
Differential Diagnosis Includes:
Not limited to dehydration, electrolyte abnormality infection
MDM/Problems Addressed:
Patient is an 83-year-old female who presents back to the ER with weakness. Patient was admitted recently for ulcerative colitis had has a history of chronic kidney disease and was started on dialysis during time of admission. Patient developed C.
difficile 3 days after being discharged and was started on Dificid by her family doctor but failed. She has been on vancomycin for the past several days diarrhea is improving but she feels very weak. She presents awake alert she denies any fever
chills she is afebrile white count elevated likely from C. difficile. She is anemic at 8.2 she has a history anemia and also retroperitoneal hematoma after renal biopsy last admission. She is on Plavix. She denies black stools. She reports
stools are orange or brown. Her potassium is low at 3.0 she was given oral kcl . Her renal function is elevated she is on dialysis and had dialysis last on Saturday. Minimally elevated LFTs. Patient has not had a good appetite. She is a dialysis
patient and with diarrhea patient given small fluid bolus only 500 mL as do not want to overload patient.
Patient mid to the hospital service for weakness
Chronic conditions affecting care:
End-stage renal disease on
*Critical Care Note
Total Time (30-74mins, 75-104mins- exclusive of procedures): Not Applicable
ED Attending Note
-
Portions of this chart may have been created with voice recognition software.� Occasional wrong word or��sound alike� substitutions may have occurred due to the inherent limitations of voice recognition software.
Discharge Plan
Departure
Patient Disposition: Admit
Date of Disposition: 02/23/24
Time of Disposition: 14:16
Admit to: Med/Surg
Admit to doctor: hospitalist
Presentation/result/management discussed w/ accepting MD/DO: Hospitalist
Patient with high blood pressure during this ER visit?: Yes
Condition: Fair
Covid-19: Not Applicable
Discharge Problem:
Weakness, Acute hypokalemia
Prescriptions:
No Action
rosuvastatin [Crestor] 40 MG tablet
40 mg PO HS
clopidogrel 75 MG tablet
75 mg PO DAILY Qty: 30 0RF
lorazepam 0.5 MG tablet
0.5 mg PO Q4HPRN PRN (Reason: ANXIETY)
metoprolol succinate 50 MG tablet extended release 24 hr
50 mg PO DAILY
latanoprost 1 DROP drops
1 drp RIGHT EYE HS
timolol maleate 1 DROP drops
1 drp RIGHT EYE DAILY
brimonidine 0.2 % drops
1 drp RIGHT EYE BID
dorzolamide 2 % Drops
1 drp RIGHT EYE BID
budesonide 3 mg Capsule,Delayed,Extend.Release
9 mg PO DAILY Qty: 90 0RF
Januvia 50 mg Tablet
25 mg PO DAILY Qty: 30 0RF
amlodipine 5 mg Tablet
5 mg PO DAILY Qty: 30 0RF
vancomycin 125 mg Capsule
125 mg PO Q6H
Referrals:
Robert Zarate DO [Family Provider] -
Interventions
Interventions:
*Risk Screen - Suicide Last Done: 02/23/24 11:15
*General Assessment Last Done: 02/23/24 11:15
*Neglect/Abuse Screening Last Done: 02/23/24 11:15
ED- Fall Risk Assessment Last Done: 02/23/24 11:15
*ED COVID-19 Vaccine History Last Done: 02/23/24 11:15
ED- Cardiac Assessment Last Done: 02/23/24 11:15
ED- Neurological Assessment Last Done: 02/23/24 11:15
ED- Pulmonary Assessment Last Done: 02/23/24 11:15
Discharge Date and Time
Print Language: EAST [place]
[2024-02-23 12:17] LABS: ALT (SGPT) 54 U/L (0-35); AST (SGOT) 50 U/L (14-36); Albumin 3.3 g/dl (3.5-5.0); Alkaline Phosphatase 195 U/L (38-126); Blood Urea Nitrogen 24 mg/dl (7-17); Calcium 8.7 mg/dl (8.4-10.2); Carbon Dioxide 28 mmol/L (22-30); Chloride 98 mmol/L (98-107); Glucose 99 mg/dl (70-99); Sodium 133 mmol/L (135-145); Total Bilirubin 1.1 mg/dl (0.2-1.3); Total Protein 6.4 g/dl (6.3-8.2); eGFR 9.56
[2024-02-23] MEDS: NSS 500 IV (12:24)
[2024-02-23 12:26] LABS: Absolute Neutrophils -Man Diff 16.9 10^3/uL (1.4-6.5); Atypical Lymphocytes 2 %; Band Neutrophils 7 % (0-3); Lymphocytes 8 % (20-51); Metamyelocytes 5 % (-); Monocytes 7 % (2-9); Myelocytes 2 % (-); Segmented Neutrophils 69 % (42-75)
[2024-02-23 12:27] LABS: Normal RBC Morphology No; Platelets Checked YES
[2024-02-23 12:28] LABS: Target Cells FEW; Total Cells Counted 100
[2024-02-23] MEDS: KCL ELIXIR 40 MEQ PO (14:47)
--- NOTE | 2024-02-23 15:26 | HPS.HSE ---
Family Physician
-
Family Physician: Robert Zarate, DO
Chief Complaint
-
Weakness
History of Present Illness
83-year-old woman with past medical history of:
ulcerative colitis
chronic kidney disease now on dialysis,
essential hypertension
diabetes
sigmoid colitis
anemia
Reports that she developed C. difficile several days after being hospitalized and was initially treated with Dificid without improvement and then switched to vancomycin. She just started vancomycin 3 days ago. She continues to complain of diarrhea
although reports and feels very weak and fatigued. Son at bedside reports she cannot function on her own because she is so fatigued and weak. She denies any fevers. No diarrhea while in the ED.
Medical History
Past Medical History
Past Medical History: Reports Other
Additional Past Medical History:
CAD,
Basal cell removed from face
essential HTN,
Hypercholesterolemia,
NIDDM,
past [place],
Anxiety
Blind right eye
Colitis
Cardiac (Stent)
Bladder tumor removed
Right and left Carotid endarterectomy
Past Surgical History: Reports Other
Additional Past Surgical History:
See above
Social History
Tobacco: Non-smoker
Alcohol: None
Drug: None
Living: Alone
Employment: Retired
Family History
Family History: Not pertinent
Allergies / Home Medications
Allergies reflects when Allergies were last updated in [employer].
Home Medications with original date entered in [employer]
Allergy/Medication List:
Allergies
Allergy/AdvReac Type Severity Reaction Status Date / Time
No Known Allergies Allergy Verified 02/23/24 11:14
Home Medications
rosuvastatin 40 mg tablet (Crestor) 40 mg PO HS High cholesterol 01/03/21
clopidogrel 75 mg tablet 75 mg PO DAILY #30 tabs 01/07/21
lorazepam 0.5 mg tablet 0.5 mg PO Q4HPRN PRN ANXIETY 02/08/21
latanoprost 0.005 % eye drops 1 drp RIGHT EYE HS Eye condition 02/16/21
metoprolol succinate 50 mg tablet,extended release 24 hr 50 mg PO DAILY Blood Pressure 02/16/21
timolol maleate 0.5 % eye drops 1 drp RIGHT EYE DAILY Eye condition 02/16/21
brimonidine 0.2 % eye drops 1 drp RIGHT EYE BID Eye Condition 01/21/24
dorzolamide 2 % eye drops 1 drp RIGHT EYE BID Eye Condition 01/22/24
amlodipine 5 mg tablet 5 mg PO DAILY #30 tabs 02/06/24
budesonide 3 mg capsule,delayed,extended release 9 mg (3 x 3 mg) PO DAILY #90 ea 02/06/24
sitagliptin phosphate 50 mg tablet (Januvia) 25 mg (1/2 x 50 mg) PO DAILY #30 tabs 02/06/24
vancomycin 125 mg capsule 125 mg PO Q6H 02/23/24
Review of Systems
-
History Source: Patient
A 12 point ROS was completed and negative except as noted: Yes
Physical Exam
Vital Signs
Vital Signs
Temp Pulse Resp BP Pulse Ox
98.7 F 93 13 113/46 96
02/23/24 09:38 02/23/24 15:00 02/23/24 15:00 02/23/24 14:00 02/23/24 15:00
Physical Exam
General: Well Developed, Well Nourished, No Apparent Distress, Comfortable and Conversant
HEENT: NormoCephalic, Moist mucous membranes, Nose Appears Normal and Ears Appear Normal
Respiratory: Clear
Cardiac: S1/S2 and Regular Rhythm
GI: Soft, Non Tender and Non Distended
Musculoskeletal: No Clubbing, No Cyanosis and No Edema
Skin: Warm and Dry; No Rash or Jaundice
Neuro: Awake, Alert, Oriented and AO x 3
Psych: Calm
Laboratory Results
-
02/23/24 11:17
02/23/24 11:17
Laboratory Results
Total Bilirubin 1.1 mg/dl (0.2-1.3) 02/23/24 11:17
AST 50 U/L (14-36) H 02/23/24 11:17
ALT 54 U/L (0-35) H 02/23/24 11:17
Alkaline Phosphatase 195 U/L (38-126) H 02/23/24 11:17
Data Reviewed
-
Lab Data: Labs Reviewed by me
Impression/Plan
-
IMPRESSION:
83 woman recently dx with c-diff presents with weakness and low K
PLAN:
1. Weakness with low K and low Na
Saline given in ED
K given in ED
Recheck levels in am
PT consult
2. Anemia, H/H 8.2/25.0, baseline likely 9.1/27.8, likely mix of CKD and recent hematoma
H/H Q6
Transfuse if H/H < 7/21 or acute symptoms develop
3. CKD - on HD
Renal consult for HD
4. H/o Past [place], weakness oculd be anginal equivalent
Telemetry
ANA
5. Active C-diff infection. WBC 22.3
Isolation precaution
Oral vanco
Questran
Daily CBC
Low residue diet
Full code
VCD for DVTp
[2024-02-23 16:22] LABS: Magnesium 1.8 mg/dl (1.6-2.3)
[2024-02-23 21:07] LABS: Troponin I < 0.012 ng/ml
[2024-02-23] MEDS: TRUSOPT 2% OPHTHALMIC SOLUTION 1 DROP RIGHT EYE (23:15)
[2024-02-23] MEDS: ALPHAGAN 0.2% EYE DROPS 1 DROP RIGHT EYE (23:20)
[2024-02-23] MEDS: XALATAN OPHTHALMIC SOLUTION 1 DROP RIGHT EYE (23:29)
[2024-02-23] MEDS: CRESTOR 40 MG PO (23:35)
[2024-02-24] VITALS (10 sets, daily range): BP systolic 114–136; BP diastolic 53–65; PULSE 84; O2SAT 96; BMI 28.6
[2024-02-24 00:19] LABS: Glucose - Point of Care 98 mg/dl (70-99)
--- NOTE | 2024-02-24 00:30 | PTCARENOTE ---
Pt admitted from ED to room 2132 at this time, aaox3, offeres not c/o pain or discomfort. Oriented to room and call mustafa.
[2024-02-24] MEDS: FIRVANQ 125 MG PO ×3 (00:33→17:16)
[2024-02-24 00:59] LABS: Urine Albumin 1+ (Neg - Trace); Urine Bilirubin Negative (Negative); Urine Character Slightly Cloudy (Clear); Urine Color Yellow; Urine Glucose Negative (Negative); Urine Ketone Trace (Negative); Urine Leukocyte 1+ (Negative); Urine Nitrite Negative (Negative); Urine Occult Blood 3+ (Negative); Urine Urobilinogen Negative (Neg - 1+)
[2024-02-24 01:04] LABS: Troponin I < 0.012 ng/ml
[2024-02-24 01:05] LABS: Urine Squamous Cell >30 /LPF (Few)
[2024-02-24 01:06] LABS: Urine Bacteria Few (Negative); Urine Red Blood Cell None Seen /HPF (0-2)
[2024-02-24 04:53] LABS: Troponin I < 0.012 ng/ml
[2024-02-24 05:08] LABS: Hematocrit 22.1 % (37.0-47.0); Hemoglobin 7.1 g/dL (12.0-16.0); Mean Corp Hgb Conc. 32.1 g/dL (33.0-37.0); Mean Corpuscular Hgb 29.1 pg (27.0-31.0); Mean Corpuscular Volume 90.6 fL (81.0-99.0); Mean Platelet Volume 9.9 fL (7.4-10.4); Platelet Count 161 10^3/uL (130-400); Red Blood Cell Count 2.44 10^6/uL (4.20-5.40); Red Cell Dist. Width 19.5 % (11.5-14.5); White Blood Cell Count 17.9 10^3/uL (4.8-10.8)
[2024-02-24 05:45] LABS: ALT (SGPT) 40 U/L (0-35); AST (SGOT) 38 U/L (14-36); Albumin 2.7 g/dl (3.5-5.0); Alkaline Phosphatase 159 U/L (38-126); Blood Urea Nitrogen 30 mg/dl (7-17); Calcium 8.6 mg/dl (8.4-10.2); Carbon Dioxide 26 mmol/L (22-30); Chloride 98 mmol/L (98-107); Estimated Creatinine Clearance 8 ml/min; Glucose 82 mg/dl (70-99); Potassium 3.6 mmol/L (3.5-5.1); Sodium 134 mmol/L (135-145); Total Protein 5.6 g/dl (6.3-8.2)
[2024-02-24 08:25] LABS: Glucose - Point of Care 87 mg/dl (70-99)
[2024-02-24 08:46] LABS: Glycohemoglobin (HgbA1c) 6.3 % (4.0-5.6)
[2024-02-24] MEDS: NORVASC 5 MG PO (09:05)
[2024-02-24] MEDS: ENTOCORT EC 9 MG PO (09:05)
[2024-02-24] MEDS: JANUVIA 25 MG PO (09:05)
[2024-02-24] MEDS: TOPROL XL 50 MG PO (09:06)
[2024-02-24] MEDS: PLAVIX 75 MG PO (09:06)
[2024-02-24] MEDS: QUESTRAN LIGHT/PREVALITE 4 GRAMS PO ×2 (09:06→22:36)
[2024-02-24] MEDS: TIMOPTIC 0.5% OPHTHALMIC SOLUTION 1 DROP RIGHT EYE (09:08)
[2024-02-24] MEDS: TRUSOPT 2% OPHTHALMIC SOLUTION 1 DROP RIGHT EYE ×2 (09:08→20:50)
[2024-02-24] MEDS: ALPHAGAN 0.2% EYE DROPS 1 DROP RIGHT EYE ×2 (09:08→20:48)
--- NOTE | 2024-02-24 09:34 | W.CON.NEPH ---
Consultation
-
Date/Time Consultation Requested: 02/23/241999
Date/Time Consultation Performed: 02/24/24929
Requesting Provider: Woody Hicks
Performing Provider: Carol Jiménez
Reason for Consultation: [place] on HD
Medical History
-
Chief Complaint: C diff diarrhea
History of Present Illness:
83y F with PMH significant for ASCVD, right retinal art occlusion on plavix, HTN on BB and Amlodipine, DM type2 on Januvia and ulcerative colitis who was admitted in January for UC flare, noted [place] and required to start HD, biopsy shows ATN, post
biopsy pt had RP hematoma which subsequently stabilized, did require transfusion. She was discharged to out pt unit [facility]. However she noticed diarrhea 2weeks ago and diagnosed with C diff. So far she did not have improvement of her
symp and became weak to the point where she could no longer do self care hence she presented to ER yesterday. SHe is on PO vanc now for few days and diarrhea resolved today but remains weak. Improving appetite today. No n/v or abd pain or fever.
Past Medical History
Ulcerative Colitis
ASCVD (CAD, Carotid Disease, CVA)
Hypertension
DM-II, Diet Controlled
Bladder Cancer
Recent [place] -HD dependant since 01/2024
Past Surgical History: Other (Bilateral CEA PTCA with Stent Left Cataract TURBT)
Social History
Tobacco: Former Smoker
Alcohol: None
Drug: None
Living: Alone
Employment: Retired
Family History
no CKD
Family History: Not Pertinent
Allergies / Home Medications
Allergy/AdvReac Type Severity Reaction Status Date / Time
No Known Allergies Allergy Verified 02/23/24 11:14
�Medication �Instructions �Recorded �Confirmed �Type
rosuvastatin 40 mg tablet (Crestor) 40 mg PO HS High cholesterol 01/03/21 02/23/24 History
clopidogrel 75 mg tablet 75 mg PO DAILY #30 tabs 01/07/21 02/23/24 Rx
lorazepam 0.5 mg tablet 0.5 mg PO Q4HPRN PRN anxiety 02/08/21 02/23/24 History
latanoprost 0.005 % eye drops 1 drp RIGHT EYE HS Eye condition 02/16/21 02/23/24 History
metoprolol succinate 50 mg 50 mg PO DAILY Blood Pressure 02/16/21 02/23/24 History
tablet,extended release 24 hr
timolol maleate 0.5 % eye drops 1 drp RIGHT EYE DAILY Eye condition 02/16/21 02/23/24 History
brimonidine 0.2 % eye drops 1 drp RIGHT EYE BID Eye Condition 01/21/24 02/23/24 History
dorzolamide 2 % eye drops 1 drp RIGHT EYE BID Eye Condition 01/22/24 02/23/24 History
amlodipine 5 mg tablet 5 mg PO DAILY #30 tabs 02/06/24 02/23/24 Rx
budesonide 3 mg 9 mg (3 x 3 mg) PO DAILY #90 ea 02/06/24 02/23/24 Rx
capsule,delayed,extended release
sitagliptin phosphate 50 mg tablet 25 mg (1/2 x 50 mg) PO DAILY #30 02/06/24 02/23/24 Rx
(Januvia) tabs
vancomycin 125 mg capsule 125 mg PO Q6H Infection 02/23/24 02/23/24 History
Review of Systems
-
All complete 12 point ROS inquired and found negative other than stated in HPI
Physical Exam
Vital Signs
Vital Signs
Temp Pulse Resp BP Pulse Ox
98.2 F 89 16 135/86 96
02/24/24 07:21 02/24/24 09:06 02/24/24 07:21 02/24/24 09:06 02/24/24 07:21
Lab Results
WBC 17.9 10^3/uL (4.8-10.8) H 04/01/24 04:05
RBC 2.44 10^6/uL (4.20-5.40) L 02/24/24 04:05
Hgb 7.1 g/dL (12.0-16.0) L 02/24/24 04:05
Hct 22.1 % (37.0-47.0) L 02/24/24 04:05
Plt Count 161 10^3/uL (130-400) 02/24/24 04:05
Sodium 134 mmol/L (135-145) L 02/24/24 04:05
Potassium 3.6 mmol/L (3.5-5.1) 02/24/24 04:05
Chloride 98 mmol/L (98-107) 02/24/24 04:05
Carbon Dioxide 26 mmol/L (22-30) 02/24/24 04:05
BUN 30 mg/dl (7-17) H 02/24/24 04:05
Creatinine 5.0 mg/dL (0.6-1.0) H* 02/24/24 04:05
eGFR 8.20 02/24/24 04:05
Glucose 82 mg/dl (70-99) 02/24/24 04:05
Calcium 8.6 mg/dl (8.4-10.2) 02/24/24 04:05
Albumin 2.7 g/dl (3.5-5.0) L 02/24/24 04:05
Physical Exam
General: Awake, Alert, Oriented, AOx3, No Distress and Nontoxic
HEENT: EOMI and Anicteric
Respiratory: Clear
Cardiac: S1/S2, Regular Rate/Rhythm and No Edema
Abdomen: Soft, Nontender and Nondistended
Musculoskeletal: No Cyanosis and No Edema
Skin: No Rash
Neuro: Nonfocal/Grossly Intact
Psych: Mood/afflect pleasant, Insight/judgement good and Appropriate
Assessment/Plan
-
IMP:
Gen weakness
C diff diarrhea
Hypokalemia
[place]-ATN on biopsy, HD since early January
Ulcerative Colitis
Acute on chronic Anemia
Hyponatremia
Benign Hypertension
CAD s/p stent 2017
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
DM-II
bladder ca
h/o retroperitoneal bleed post K biopsy 01/28
Plan:
Recent d/c from hospital after initiating HD for severe [place] presents back with c diff diarrhea
plan HD today per schedule, limited UF since she lost wt from d/c
hemodynamically stable
reports non oliguric subjectively but cr remains high at 5 pre HD
monitor h/h, decreasing, prn trasnfusion
d/w pt
--- NOTE | 2024-02-24 11:23 | CM ---
Reviewed the chart notes and spoke with the patient at the bedside. The patient resides alone in a split level home with no steps to enter. The patient has a rolling walker and cane. The patient is current with [facility], but no SNF in
the past. The patient has recently started on HD at [facility] . The patient confirmed her pharmacy of choice is the [facility] [address] [place]. The patient anticipates being discharged back to home with resumption of VN and
outpatient HD. CM continues to be available to patient/family and is monitoring medical plan for needs at discharge.
Plan: Discharge to home with resumption of [facility] and outpatient HD at [facility].
[2024-02-24 11:51] LABS: Glucose - Point of Care 141 mg/dl (70-99)
[2024-02-24] MEDS: FIRVANQ PO (12:58)
[2024-02-24] MEDS: RETACRIT 10000 UNITS IV (13:55)
--- NOTE | 2024-02-24 15:43 | W.PN.NEPH.HD ---
Assessment
-
pt seen during HD
vitals stable
minimal US as she below last d/c wt
CVC functions well
high dose AMRITA for anemia, prn transfusion, no heparin
Progress Note - Hemodialysis
-
Date of Service: February 24, 2024
Duration: 30 minutes and 3 hours
Potassium Bath: 3
Calcium Bath: 2.5
Opti-Dialyzer: 160
Ultrafiltration: Other (0.5kg)
Blood Flow: 400
Dialysate Flow: 600
Heparin: no
EPO: [id number]
--- NOTE | 2024-02-24 16:42 | W.PN.HOSP.TC ---
Today's Communication/Plan
-
see plan
Assessment / Plan
Assessment / Plan
IMPRESSION:
83 woman recently dx with c-diff presents with weakness and low K
PLAN:
1. Weakness with hypokalemia/hyponatremia
Underwent HD
Recheck levels in am
PT consult
2. Anemia, H/H 8.2/25.0, baseline likely 9.1/27.8, likely mix of CKD and recent hematoma
No sx of acute blood loss
Will transfuse 1 unit PRBC
3. CKD - on HD
Renal consult for HD
4. H/o Past [place], weakness oculd be anginal equivalent
Telemetry
ANA
5. Active C-diff infection. WBC 22.3
Isolation precaution
Oral vanco
Questran
Daily CBC
Low residue diet
Full code
VCD for DVTp
Anticipated Discharge: 24 - 48 hours
Subjective/Interval History
-
Date of Service: February 24, 2024
pt states still generalized weakness
interested in rehab.
Objective Data
-
Labs:
Laboratory Results
02/24/24
04:05
WBC 17.9 H
Hgb 7.1 L
Hct 22.1 L
Plt Count 161
Sodium 134 L
Potassium 3.6
Chloride 98
Carbon Dioxide 26
BUN 30 H
Creatinine 5.0 H*
Glucose 82
Calcium 8.6
Total Bilirubin 1.0
AST 38 H
ALT 40 H
Alkaline Phosphatase 159 H
Vital Signs:
Vital Signs
Temp Pulse Resp BP Pulse Ox
97.6 F 78 18 134/62 97
02/24/24 15:00 02/24/24 15:00 02/24/24 15:00 02/24/24 15:00 02/24/24 15:00
I&O
02/23/24 02/24/24 02/25/24
06:59 06:59 06:59
Intake Total 320 / 320
Balance 320 / 320
Review of Systems
-
History Source: Patient
All other systems: Reviewed and negative
Physical Exam
-
General: Well Developed and No Apparent Distress
HEENT: Normocephalic, Atraumatic and Moist Mucous Membranes
Respiratory: Clear to Auscultation
Cardiac: Regular Rhythm and S1/S2; Negative Murmur, Rub or Gallop
GI: Soft, Nontender, Nondistended and Normal Bowel Sounds; Negative Organomegaly
Rectal: Deferred by Provider
Musculoskeletal: No Clubbing, No Cyanosis and No Edema
Skin: Negative Rash
Neuro: Nonfocal/Grossly Intact
Data Reviewed
-
Labs: Labs Reviewed by me and Discussed with Patient
[2024-02-24 16:46] LABS: Glucose - Point of Care 97 mg/dl (70-99)
[2024-02-24] MEDS: CRESTOR 40 MG PO (20:48)
[2024-02-24] MEDS: XALATAN OPHTHALMIC SOLUTION 1 DROP RIGHT EYE (22:39)
[2024-02-25] VITALS (8 sets, daily range): BP systolic 134–154; BP diastolic 60–70; PULSE 80; BMI 28.8
[2024-02-25] MEDS: FIRVANQ 125 MG PO ×4 (00:57→17:11)
[2024-02-25 06:43] LABS: % Basophils 0.3 % (0-2); % Eosinophils 0.1 % (0-6); % Lymphocytes 16.7 % (20.5-51.1); % Monocytes 16.5 % (1.7-9.3); % Neutrophils 58.4 % (42.2-75.2); Absolute Basophils 0.1 10^3/uL (0-0.2); Absolute Immature Granulocytes 1.5 10^3/uL (0-0.05); Absolute Lymphocytes 3.2 10^3/uL (1.2-3.4); Absolute Monocytes 3.1 10^3/uL (0.1-0.6); Absolute Neutrophils 11.1 10^3/uL (1.4-6.5); Hematocrit 24.5 % (37.0-47.0); Hemoglobin 7.9 g/dL (12.0-16.0); Mean Corp Hgb Conc. 32.2 g/dL (33.0-37.0); Mean Corpuscular Hgb 28.8 pg (27.0-31.0); Mean Corpuscular Volume 89.4 fL (81.0-99.0); Mean Platelet Volume 9.9 fL (7.4-10.4); Nucleated Red Blood Cells % 0 %; Platelet Count 160 10^3/uL (130-400); Red Blood Cell Count 2.74 10^6/uL (4.20-5.40); Red Cell Dist. Width 18.9 % (11.5-14.5)
[2024-02-25 07:14] LABS: ALT (SGPT) 37 U/L (0-35); AST (SGOT) 42 U/L (14-36); Albumin 2.8 g/dl (3.5-5.0); Alkaline Phosphatase 146 U/L (38-126); Blood Urea Nitrogen 19 mg/dl (7-17); Calcium 8.1 mg/dl (8.4-10.2); Carbon Dioxide 27 mmol/L (22-30); Chloride 99 mmol/L (98-107); Estimated Creatinine Clearance 14 ml/min; Glucose 96 mg/dl (70-99); Potassium 3.2 mmol/L (3.5-5.1); Sodium 132 mmol/L (135-145); Total Protein 5.7 g/dl (6.3-8.2); eGFR 16.45
[2024-02-25] MEDS: TOPROL XL 50 MG PO (08:48)
[2024-02-25] MEDS: NORVASC 5 MG PO (08:48)
[2024-02-25] MEDS: PLAVIX 75 MG PO (08:48)
[2024-02-25] MEDS: ENTOCORT EC 9 MG PO (08:48)
[2024-02-25] MEDS: JANUVIA 25 MG PO (08:48)
[2024-02-25] MEDS: TIMOPTIC 0.5% OPHTHALMIC SOLUTION 1 DROP RIGHT EYE (08:49)
[2024-02-25] MEDS: TRUSOPT 2% OPHTHALMIC SOLUTION 1 DROP RIGHT EYE ×2 (08:49→20:55)
[2024-02-25] MEDS: ALPHAGAN 0.2% EYE DROPS 1 DROP RIGHT EYE ×2 (08:49→20:55)
[2024-02-25] MEDS: QUESTRAN LIGHT/PREVALITE 4 GRAMS PO ×2 (10:25→22:10)
[2024-02-25 11:50] LABS: Glucose - Point of Care 127 mg/dl (70-99)
[2024-02-25] MEDS: NOVOLOG FLEXPEN-LOW RESISTANCE SC ×2 (11:53→16:25)
--- NOTE | 2024-02-25 13:35 | W.PN.HOSP.TC ---
Today's Communication/Plan
-
see plan
Assessment / Plan
Assessment / Plan
IMPRESSION:
83 woman recently dx with c-diff presents with weakness and low K
PLAN:
1. Weakness with hypokalemia/hyponatremia
Undergoing HD as per nephrology.
electrolyte abnormalities resolved with HD
PT consult
2. Anemia, H/H 8.2/25.0, baseline likely 9.1/27.8, likely mix of CKD and recent hematoma
No sx of acute blood loss
hgb improved with transfusion, monitor counts closely.
3. CKD - on HD
Renal consult for HD
4. H/o Past [place], weakness oculd be anginal equivalent
Telemetry
no evidence of ACS.
5. Active C-diff infection. WBC 22.3
Isolation precaution
Oral vanco
Questran
Daily CBC
Low residue diet
Full code
VCD for DVTp
Anticipated Discharge: 24 - 48 hours
Subjective/Interval History
-
Date of Service: February 25, 2024
pt states generalized weakness present
interested in rehab.
Objective Data
-
Labs:
Laboratory Results
02/25/24
05:19
WBC 19.0 H
Hgb 7.9 L
Hct 24.5 L
Plt Count 160
Sodium 132 L
Potassium 3.2 L
Chloride 99
Carbon Dioxide 27
BUN 19 H
Creatinine 2.8 H
Glucose 96
Calcium 8.1 L
Total Bilirubin 1.0
AST 42 H
ALT 37 H
Alkaline Phosphatase 146 H
Vital Signs:
Vital Signs
Temp Pulse Resp BP Pulse Ox
99.0 F 80 18 138/70 94
02/25/24 11:00 02/25/24 11:00 02/25/24 11:00 02/25/24 11:00 02/25/24 11:56
I&O
02/24/24 02/25/24 02/26/24
06:59 06:59 06:59
Intake Total 320 / 320 1380 / 1380
Balance 320 / 320 1380 / 1380
Review of Systems
-
History Source: Patient
All other systems: Reviewed and negative
Physical Exam
-
General: Well Developed and No Apparent Distress
HEENT: Normocephalic, Atraumatic and Moist Mucous Membranes
Respiratory: Clear to Auscultation
Cardiac: Regular Rhythm and S1/S2; Negative Murmur, Rub or Gallop
GI: Soft, Nontender, Nondistended and Normal Bowel Sounds; Negative Organomegaly
Rectal: Deferred by Provider
Musculoskeletal: No Clubbing, No Cyanosis and No Edema
Skin: Negative Rash
Neuro: Nonfocal/Grossly Intact
Data Reviewed
-
Labs: Labs Reviewed by me and Discussed with Patient
--- NOTE | 2024-02-25 15:41 | CM ---
Reviewed the chart notes and spoke with the patient at the bedside. IMM placed on the chart. CM continues to be available to patient/family and is monitoring medical plan for needs at discharge.
Plan: Discharge to home on [facility] (fax: [phone]).
--- NOTE | 2024-02-25 16:19 | W.PN.NEPH.PH ---
Today's Communication / Plan
-
HD tomorrow
eventual rehab
Assessment/Plan
-
IMP:
Gen weakness
C diff diarrhea
Hypokalemia
[place]-ATN on biopsy, HD since early January
Ulcerative Colitis
Acute on chronic Anemia
Hyponatremia
Benign Hypertension
CAD s/p stent 2017
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
DM-II
bladder ca
h/o retroperitoneal bleed post K biopsy 01/28
Plan:
Recent d/c from hospital after initiating HD for severe [place] presents back with c diff diarrhea
plan HD tomorrow
hemodynamically stable
reports non oliguric subjectively but cr remains high pre HD
no appreciable renal recovery noted at this time
monitor h/h, hb better post PRBC, high dose AMRITA with HD
d/w pt
-
-
Date of Service: February 25, 2024
CC / HPI / ROS
-
Chief Complaint:
[place] on HD
History of Present Illness:
tolerated HD yesterday
bp stable
no fever
Review of Systems:
no cp or sob
no dysuria, no diarrhea
Labs
-
Labs:
WBC 19.0 10^3/uL (4.8-10.8) H 02/25/24 05:19
RBC 2.74 10^6/uL (4.20-5.40) L 02/25/24 05:19
Hgb 7.9 g/dL (12.0-16.0) L 02/25/24 05:19
Hct 24.5 % (37.0-47.0) L 02/25/24 05:19
Plt Count 160 10^3/uL (130-400) 02/25/24 05:19
Sodium 132 mmol/L (135-145) L 02/25/24 05:19
Potassium 3.2 mmol/L (3.5-5.1) L 02/25/24 05:19
Chloride 99 mmol/L (98-107) 02/25/24 05:19
Carbon Dioxide 27 mmol/L (22-30) 02/25/24 05:19
BUN 19 mg/dl (7-17) H 02/25/24 05:19
Creatinine 2.8 mg/dL (0.6-1.0) H 02/25/24 05:19
eGFR 16.45 02/25/24 05:19
Glucose 96 mg/dl (70-99) 02/25/24 05:19
Calcium 8.1 mg/dl (8.4-10.2) L 02/25/24 05:19
Albumin 2.8 g/dl (3.5-5.0) L 02/25/24 05:19
Physical Exam
-
Vital Signs:
Vital Signs
Temp Pulse Resp BP Pulse Ox
99.0 F 80 18 138/70 94
02/25/24 11:00 02/25/24 11:00 02/25/24 11:00 02/25/24 11:00 02/25/24 11:56
Cardiovascular:: Regular rate and rhythm
Respiratory:: Bilateral: CTA
Lung Excursion:: Normal
Abdomen:: Nontender and Soft
Extremity Edema:: None: Bilateral:
Smith Catheter: No
[2024-02-25 16:23] LABS: Glucose - Point of Care 120 mg/dl (70-99)
[2024-02-25] MEDS: CRESTOR 40 MG PO (20:54)
[2024-02-25 21:44] LABS: Glucose - Point of Care 152 mg/dl (70-99)
[2024-02-25] MEDS: XALATAN OPHTHALMIC SOLUTION 1 DROP RIGHT EYE (22:11)
[2024-02-26] MEDS: FIRVANQ 125 MG PO ×5 (01:16→23:50)
[2024-02-26 03:17] VITALS: BP 137/65
[2024-02-26 04:55] LABS: % Basophils 0.3 % (0-2); % Immature Granulocytes 6.5 % (0-0.5); % Lymphocytes 17.3 % (20.5-51.1); % Monocytes 19.4 % (1.7-9.3); % Neutrophils 56.5 % (42.2-75.2); Absolute Basophils 0.1 10^3/uL (0-0.2); Absolute Immature Granulocytes 1.2 10^3/uL (0-0.05); Absolute Lymphocytes 3.2 10^3/uL (1.2-3.4); Absolute Monocytes 3.6 10^3/uL (0.1-0.6); Absolute Neutrophils 10.6 10^3/uL (1.4-6.5); Hematocrit 24.4 % (37.0-47.0); Mean Corp Hgb Conc. 32.8 g/dL (33.0-37.0); Mean Corpuscular Hgb 28.7 pg (27.0-31.0); Mean Corpuscular Volume 87.5 fL (81.0-99.0); Mean Platelet Volume 9.1 fL (7.4-10.4); Nucleated Red Blood Cells % 0 %; Platelet Count 172 10^3/uL (130-400); Red Blood Cell Count 2.79 10^6/uL (4.20-5.40); Red Cell Dist. Width 18.9 % (11.5-14.5); White Blood Cell Count 18.7 10^3/uL (4.8-10.8)
[2024-02-26 05:27] LABS: ALT (SGPT) 32 U/L (0-35); AST (SGOT) 39 U/L (14-36); Albumin 2.8 g/dl (3.5-5.0); Alkaline Phosphatase 133 U/L (38-126); Blood Urea Nitrogen 31 mg/dl (7-17); Calcium 8.6 mg/dl (8.4-10.2); Carbon Dioxide 26 mmol/L (22-30); Chloride 100 mmol/L (98-107); Estimated Creatinine Clearance 11 ml/min; Glucose 123 mg/dl (70-99); Potassium 3.1 mmol/L (3.5-5.1); Sodium 132 mmol/L (135-145); Total Bilirubin 0.8 mg/dl (0.2-1.3); Total Protein 5.7 g/dl (6.3-8.2); eGFR 11.77
[2024-02-26 06:00] VITALS: BMI 28.8
[2024-02-26 07:30] VITALS: BP 137/60
[2024-02-26 07:43] LABS: Glucose - Point of Care 128 mg/dl (70-99)
--- NOTE | 2024-02-26 08:12 | W.PN.HOSP.TC ---
Today's Communication/Plan
-
Will need to await further definition of 1 out of 2 blood cultures taken on prior to a discharge plan to rehab
Otherwise okay to go
Last day of vancomycin p.o. today
Would like to avoid any further antibiotic course if at all possible
Assessment / Plan
Assessment / Plan
IMPRESSION:
83 woman recently dx with c-diff presents with weakness and low K
PLAN:
1. Weakness with hypokalemia/hyponatremia/improved on dialysis
Undergoing HD as per nephrology.
electrolyte abnormalities resolved with HD
PT consult
2. Anemia, H/H 8.2/25.0, baseline likely 9.1/27.8, likely mix of CKD and recent hematoma
No sx of acute blood loss
hgb improved with transfusion, monitor counts closely.
3. CKD - on HD
Renal consult for HD
4. H/o Past [place], weakness oculd be anginal equivalent
Telemetry
no evidence of ACS.
5. Active C-diff infection. WBC 22.3>> 18.7
Isolation precaution/C. difficile toxin on this presentation negative antigen was positive
Oral vanco started as outpatient after failed course of Dificid/today is seventh day of therapy due to come off
Questran
Daily CBC
Low residue diet
6. Continued leukocytosis
Unexplained is no signs of infection
-1 of 2 blood cultures reported with gram-positive cocci in clusters possible contaminant
-Will await further definition/would avoid empiric usage of antibiotics with recent course of C. difficile
Full code
VCD for DVTp
Anticipated Discharge: 24 - 48 hours
Subjective/Interval History
-
Date of Service: February 26, 2024
Some deconditioning and weakness noted during PT assessment yesterday still interested in rehab.
Objective Data
-
Labs:
Laboratory Results
02/26/24
04:19
WBC 18.7 H
Hgb 8.0 L
Hct 24.4 L
Plt Count 172
Sodium 132 L
Potassium 3.1 L
Chloride 100
Carbon Dioxide 26
BUN 31 H
Creatinine 3.7 H
Glucose 123 H
Calcium 8.6
Total Bilirubin 0.8
AST 39 H
ALT 32
Alkaline Phosphatase 133 H
Vital Signs:
Vital Signs
Temp Pulse Resp BP Pulse Ox
98.2 F 75 16 137/60 94
02/26/24 07:30 02/26/24 07:30 02/26/24 07:30 02/26/24 07:30 02/26/24 07:30
I&O
02/25/24 02/26/24 02/27/24
06:59 06:59 06:59
Intake Total 1380 / 1380 1140 / 1140
Balance 1380 / 1380 1140 / 1140
Review of Systems
-
History Source: Patient
Constitutional: Reports Fatigue and Weakness
EENT: Reports No Symptoms Reported
Abdomen/GI: Reports No Symptoms; Denies Diarrhea
Physical Exam
-
General: Well Developed
HEENT: Normocephalic
Respiratory: Clear to Auscultation
Cardiac: Regular Rhythm
GI: Soft and Nontender
Musculoskeletal: No Clubbing
Neuro: Awake, Alert and Oriented
Data Reviewed
-
Total Time Spent with Patient (in minutes): 56
Labs: Labs Reviewed by me (Hemoglobin 8.0 stable/white count remains elevated at 18.7/1 of 2 blood cultures taken on 22 February reporting positive gram positive cocci in clusters)
[2024-02-26] MEDS: ALPHAGAN 0.2% EYE DROPS 1 DROP RIGHT EYE ×2 (08:32→19:59)
[2024-02-26] MEDS: NOVOLOG FLEXPEN-LOW RESISTANCE SC ×2 (08:32→16:52)
[2024-02-26] MEDS: TOPROL XL 50 MG PO (08:33)
[2024-02-26] MEDS: ENTOCORT EC 9 MG PO (08:33)
[2024-02-26] MEDS: NORVASC 5 MG PO (08:33)
[2024-02-26] MEDS: JANUVIA 25 MG PO (08:34)
[2024-02-26] MEDS: PLAVIX 75 MG PO (08:34)
[2024-02-26] MEDS: TIMOPTIC 0.5% OPHTHALMIC SOLUTION 1 DROP RIGHT EYE (08:35)
[2024-02-26] MEDS: TRUSOPT 2% OPHTHALMIC SOLUTION 1 DROP RIGHT EYE ×2 (08:35→20:00)
[2024-02-26] MEDS: KCL 40 MEQ PO (09:47)
[2024-02-26 11:32] VITALS: BP 150/63
[2024-02-26 11:39] LABS: Glucose - Point of Care 225 mg/dl (70-99)
[2024-02-26] MEDS: QUESTRAN LIGHT/PREVALITE 4 GRAMS PO ×2 (12:16→19:59)
[2024-02-26] MEDS: HEPARIN 500 UNITS IV ×2 (12:25→13:25)
[2024-02-26] MEDS: NOVOLOG FLEXPEN-LOW RESISTANCE 2 UNITS SC (12:48)
--- NOTE | 2024-02-26 12:51 | W.PN.NEPH.HD ---
Assessment
-
Patient seen on HD
sbp 150
u/f set to even as patient well below EDW
no diarrhea at this time
Progress Note - Hemodialysis
-
Date of Service: February 26, 2024
Duration: 30 minutes and 3 hours
Potassium Bath: 4
Calcium Bath: 2.5
Opti-Dialyzer: 160
Ultrafiltration: Other (Even)
Blood Flow: 400
Dialysate Flow: 600
Heparin: 500 x 2
EPO: 10,000
[2024-02-26] MEDS: RETACRIT 10000 UNITS IV (13:59)
[2024-02-26 15:25] VITALS: BP 135/62
[2024-02-26] MEDS: HEPARIN 3900 UNITS INTRACATH (15:54)
--- NOTE | 2024-02-26 15:56 | CM ---
Reviewed the chart notes. CM continues to be available to patient/family and is monitoring medical plan for needs at discharge.
Plan: Discharge to home on [facility] (fax: [phone]).
[2024-02-26 16:36] LABS: Glucose - Point of Care 105 mg/dl (70-99)
[2024-02-26 19:42] VITALS: BP 137/60
[2024-02-26] MEDS: XALATAN OPHTHALMIC SOLUTION 1 DROP RIGHT EYE (20:02)
[2024-02-26 21:43] LABS: Glucose - Point of Care 141 mg/dl (70-99)
[2024-02-26 23:13] VITALS: BP 130/59
[2024-02-26] MEDS: CRESTOR 40 MG PO (23:50)
[2024-02-27 03:14] VITALS: BMI 28.7
[2024-02-27 03:17] VITALS: BP 129/64
[2024-02-27 04:56] LABS: Hematocrit 23.6 % (37.0-47.0); Hemoglobin 7.7 g/dL (12.0-16.0); Mean Corp Hgb Conc. 32.6 g/dL (33.0-37.0); Mean Corpuscular Hgb 29.1 pg (27.0-31.0); Mean Corpuscular Volume 89.1 fL (81.0-99.0); Mean Platelet Volume 9.4 fL (7.4-10.4); Platelet Count 178 10^3/uL (130-400); Red Blood Cell Count 2.65 10^6/uL (4.20-5.40); White Blood Cell Count 17.5 10^3/uL (4.8-10.8)
[2024-02-27 05:18] LABS: Blood Urea Nitrogen 20 mg/dl (7-17); Calcium 8.9 mg/dl (8.4-10.2); Carbon Dioxide 28 mmol/L (22-30); Chloride 100 mmol/L (98-107); Estimated Creatinine Clearance 16 ml/min; Glucose 124 mg/dl (70-99); Potassium 3.7 mmol/L (3.5-5.1); Sodium 135 mmol/L (135-145); eGFR 18.85
[2024-02-27] MEDS: FIRVANQ PO (05:39)
[2024-02-27 08:06] LABS: Glucose - Point of Care 132 mg/dl (70-99)
[2024-02-27] MEDS: NOVOLOG FLEXPEN-LOW RESISTANCE SC (08:16)
[2024-02-27 08:29] VITALS: BP 141/67
--- NOTE | 2024-02-27 08:29 | W.PN.UPDATE ---
Update Note
Progress Note Update
Patient seen and examined today patient has some residual weakness and deconditioning will require rehab
She is otherwise stable for discharge
I believe the blood cultures is presently noted from showing positive gram-positive cocci is probably contaminant as the other culture remains negative x 72 hours
He has no signs or symptoms of any residual infection and now off vancomycin p.o. for C. difficile
Stable for discharge I will reach out to case management as patient states that she has not met with them but will need rehab and for list of facilities
I will place a discharge order for today pending placement
--- NOTE | 2024-02-27 09:01 | CM ---
Addendum entered by Ailyn Jameson RN 02/27/24 14:22:
[facility] requests discharge instructions be faxed to their facility.
[facility] fax: [phone]
Addendum entered by Ailyn Jameson RN 02/27/24 10:05:
Patient accepted at [facility]. Patient in agreement. Patient's family will transport today around 4:30pm to facility. Patient provided with address of facility.
Plan: Discharge to [facility] today.
Call report to: - ask for subacute route delivery supervisor
Fax report to:
Original Note:
Reviewed the chart notes and spoke with the patient at the bedside. Patient states 'I am not able to return home due to steps'. Per PT, they recommend home health for the patient. Patient ambulated 130' yesterday. Referrals sent. Barriers
include being an HD patient and having been c-diff +, completed course of vanco. Referrals sent to area SNFs. CM continues to be available to patient/family and is monitoring medical plan for needs at discharge.
Plan: Discharge to SNF/rehab once bed found. Being a HD patient will likely limit facilities will to accept patient due to transportation issues.
[2024-02-27] MEDS: ALPHAGAN 0.2% EYE DROPS 1 DROP RIGHT EYE (09:52)
[2024-02-27] MEDS: TRUSOPT 2% OPHTHALMIC SOLUTION 1 DROP RIGHT EYE (09:52)
[2024-02-27] MEDS: TOPROL XL 50 MG PO (09:53)
[2024-02-27] MEDS: NORVASC 5 MG PO (09:53)
[2024-02-27] MEDS: ENTOCORT EC 9 MG PO (09:53)
[2024-02-27] MEDS: TIMOPTIC 0.5% OPHTHALMIC SOLUTION 1 DROP RIGHT EYE (09:53)
[2024-02-27] MEDS: PLAVIX 75 MG PO (09:53)
[2024-02-27] MEDS: JANUVIA 25 MG PO (09:53)
[2024-02-27] MEDS: QUESTRAN LIGHT/PREVALITE PO (10:48)
[2024-02-27 11:20] VITALS: BP 127/55
[2024-02-27 11:47] LABS: Glucose - Point of Care 200 mg/dl (70-99)
--- NOTE | 2024-02-27 11:52 | W.PN.NEPH.PH ---
Today's Communication / Plan
-
Stable for discharge
Dialysis tomorrow at home he is
Assessment/Plan
-
IMP:
Gen weakness
C diff diarrhea
Hypokalemia
[place]-ATN on biopsy, HD since early January
Ulcerative Colitis
Acute on chronic Anemia
Hyponatremia
Benign Hypertension
CAD s/p stent 2017
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
DM-II
bladder ca
h/o retroperitoneal bleed post K biopsy 01/28
Plan:
Recent d/c from hospital after initiating HD for severe [place] presents back with c diff diarrhea
Stable for discharge to
plan HD tomorrow at home unit
hemodynamically stable
reports non oliguric subjectively but cr remains high pre HD
no appreciable renal recovery noted at this time
monitor h/h, hb better post PRBC, high dose AMRITA with HD
d/w pt
-
-
Date of Service: February 27, 2024
CC / HPI / ROS
-
Chief Complaint:
[place] on HD
History of Present Illness:
tolerated HD yesterday
bp stable
no fever
Review of Systems:
no cp or sob
no dysuria, no diarrhea
Labs
-
Labs:
WBC 17.5 10^3/uL (4.8-10.8) H 02/27/24 04:39
RBC 2.65 10^6/uL (4.20-5.40) L 02/27/24 04:39
Hgb 7.7 g/dL (12.0-16.0) L 02/27/24 04:39
Hct 23.6 % (37.0-47.0) L 02/27/24 04:39
Plt Count 178 10^3/uL (130-400) 02/27/24 04:39
Sodium 135 mmol/L (135-145) 02/27/24 04:39
Potassium 3.7 mmol/L (3.5-5.1) 02/27/24 04:39
Chloride 100 mmol/L (98-107) 02/27/24 04:39
Carbon Dioxide 28 mmol/L (22-30) 02/27/24 04:39
BUN 20 mg/dl (7-17) H 02/27/24 04:39
Creatinine 2.5 mg/dL (0.6-1.0) H 02/27/24 04:39
eGFR 18.85 02/27/24 04:39
Glucose 124 mg/dl (70-99) H 02/27/24 04:39
Calcium 8.9 mg/dl (8.4-10.2) 02/27/24 04:39
Albumin 2.8 g/dl (3.5-5.0) L 02/26/24 04:19
Physical Exam
-
Vital Signs:
Vital Signs
Temp Pulse Resp BP Pulse Ox
98.4 F 73 16 141/67 96
02/27/24 08:29 02/27/24 09:53 02/27/24 08:29 02/27/24 09:53 02/27/24 09:00
Cardiovascular:: Regular rate and rhythm
Respiratory:: Bilateral: CTA
Lung Excursion:: Normal
Abdomen:: Nontender and Soft
Bowel Sounds:: Normal
Extremity Edema:: None: Bilateral:
Smith Catheter: No
[2024-02-27] MEDS: NOVOLOG FLEXPEN-LOW RESISTANCE 2 UNITS SC (13:10)
[2024-02-27 15:25] VITALS: BP 124/65
--- NOTE | 2024-02-27 17:27 | PTCARENOTE ---
Patient discharged to [facility] [place]. Report called to Katia at facility by this RN. IV and telemetry pack removed, patient dressed with assistance of this RN, belongings gathered independently. Patient transported to facility by
family member, discharge packet handed to patient and instructed to bring to facility and give to staff. R HD cath in place, patient to receive HD at normal outpatient facility tomorrow. Patient taken down to family member's car via staff escort and
wheelchair.
== END 2024-02-27 17:22 | DRG 371 ==
LOC: 2 NORTH 15:54
PROVIDERS: Internal Medicine; Nurse Practitioner; Specialist; ADMITTING PHYSICIAN Internal Medicine; ATTENDING PHYSICIAN Internal Medicine; EMERGENCY PHYSICIAN Emergency Medicine; FAMILY PHYSICIAN Family Medicine; OTHER PHYSICIAN Internal Medicine
PROC: 5A1D70Z Performance of Urinary Filtration, Intermittent, Less than 6 Hours Per Day (ICD-10-PCS; 2024-02-24)
DX: A04.72 Enterocolitis due to Clostridium difficile, not specified as recurrent (principal); N17.0 Acute kidney failure with tubular necrosis; E87.1 Hypo-osmolality and hyponatremia; D64.9 Anemia, unspecified; N18.9 Chronic kidney disease, unspecified; E11.22 Type 2 diabetes mellitus with diabetic chronic kidney disease; I12.9 Hypertensive chronic kidney disease with stage 1 through stage 4 chronic kidney disease, or unspecified chronic kidney disease; Z87.891 Personal history of nicotine dependence; I25.2 Old myocardial infarction; E87.6 Hypokalemia
CPT/HCPCS: 80048; 80053; 81003; 81015; 82962; 83036; 83735; 84484; 85025; 85027; 86850; 86900; 86901; 86920; 87040; 87070; 87086; 87149; 87205; 93005; 96361; 96374; 97162; 97530; 99285; G0257; P9016; P9047; Q5106

== ENCOUNTER → 2024-06-01 11:15 | Outpatient (REF) | payer MEDICARE, OTHER, SELFPAY | LOC: DHVS 11:15 | PROVIDERS: ATTENDING PHYSICIAN Physician Assistant; FAMILY PHYSICIAN Family Medicine | DX: I65.23 Occlusion and stenosis of bilateral carotid arteries (principal) | CPT/HCPCS: 93880 ==

== ENCOUNTER → 2024-06-11 08:54 | Outpatient (REF) | payer MEDICARE, OTHER, SELFPAY | LOC: RADI 08:54 | PROVIDERS: ATTENDING PHYSICIAN Internal Medicine Nephrology | DX: Z49.01 Encounter for fitting and adjustment of extracorporeal dialysis catheter (principal); N18.6 End stage renal disease | CPT/HCPCS: 36589 ==

== ENCOUNTER → 2025-02-12 14:14 | Outpatient (REF) | payer MEDICARE, OTHER, SELFPAY | LOC: RAD 14:14 | PROVIDERS: ATTENDING PHYSICIAN Family Medicine | DX: M51.360 Other intervertebral disc degeneration, lumbar region with discogenic back pain only (principal) | CPT/HCPCS: 72110 ==

== ENCOUNTER → 2025-03-09 10:24 | Outpatient (REF) | payer MEDICARE, OTHER, SELFPAY | LOC: WDC 10:24 | PROVIDERS: ATTENDING PHYSICIAN Family Medicine | DX: Z12.31 Encounter for screening mammogram for malignant neoplasm of breast (principal); Z13.820 Encounter for screening for osteoporosis; M85.88 Other specified disorders of bone density and structure, other site | CPT/HCPCS: 77063; 77067; 77080 ==

== ENCOUNTER → 2025-06-14 13:49 | Outpatient (REF) | payer MEDICARE, OTHER, SELFPAY | LOC: RAD 13:49 | PROVIDERS: ATTENDING PHYSICIAN Surgery Vascular Surgery | DX: I65.23 Occlusion and stenosis of bilateral carotid arteries (principal) | CPT/HCPCS: 93880 ==

== ENCOUNTER 2025-09-18 23:23 | Observation (INO) | payer MEDICARE, OTHER, SELFPAY ==
[2025-09-18 19:44] VITALS: BP 169/83
[2025-09-18 20:10] LABS: Hematocrit 35.9 % (37.0-47.0); Hemoglobin 11.3 g/dL (12.0-16.0); Mean Corp Hgb Conc. 31.5 g/dL (33.0-37.0); Mean Corpuscular Volume 96.2 fL (81.0-99.0); Nucleated Red Blood Cells % 0 %; Platelet Count 185 10^3/uL (130-400); Red Cell Dist. Width 14.2 % (11.5-14.5)
[2025-09-18 20:31] LABS: ALT (SGPT) 23 U/L (0-35); AST (SGOT) 25 U/L (14-36); Albumin 5.0 g/dl (3.5-5.0); Alkaline Phosphatase 87 U/L (38-126); Blood Urea Nitrogen 41 mg/dl (7-17); Calcium 9.6 mg/dl (8.4-10.2); Carbon Dioxide 19 mmol/L (22-30); Chloride 110 mmol/L (98-107); Glucose 166 mg/dl (70-99); Potassium 4.1 mmol/L (3.5-5.1); Sodium 141 mmol/L (135-145); Total Protein 8.3 g/dl (6.3-8.2); eGFR 24.48
[2025-09-18 21:04] VITALS: BP 134/70; BMI 31.6
[2025-09-18 22:00] VITALS: BP 139/126
--- NOTE | 2025-09-18 22:40 | ED.GENMED ---
History of Present Illness
General
Chief Complaint: Change in Mental Status
Source: patient
Exam Limitations: none
Time Seen by Provider: 09/18/25 22:21
History of Present Illness
History of Present Illness:
See MDM
Past History
Past History
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
ED Past Surgical History: Cardiac (Stent), Urological (Bladder tumor removed, ) and Other (Right and left Carotid endarterectomy)
Social History
Tobacco: Non-smoker
Alcohol: Occasional
Personal:
Living: alone
Phy Exam
Physical Exam
Physical Exam:
See MDM
Scores
NIH Stroke Score
Level of Consciousness: 0 - Alert
LOC Questions: 0-Answers both correctly
LOC Commands: 0-Performs both correctly
Best Horizontal Gaze: 0-Normal
Visual Arriaga: 0=Normal, no visual loss
Facial Palsy: 0=Normal, symmetrical
Motor - Right Arm: 0=No drift 10 seconds
Motor - Left Arm: 0=No drift 10 seconds
Motor - Right Le-No drift 5 seconds
Motor - Left Le-No drift 5 seconds
Limb Ataxia: 0-Absent
Sensation: 0-Normal
Best Language: 0-No aphasia
Dysarthria: 0-Normal
Extinction and Inattention: 0-No abnormality
NIH Total Score:: 0
Course
Orders/Labs/Results
Orders:
Orders
09/18/25 19:49
CT Head W/o Iv Contrast Urgent
Comment: denies trauma, no symptoms.
Reason For Exam: loss of memory from 4-6pm
09/18/25 20:03
Complete Blood Count/With Diff Urgent
Comprehensive Metabolic Panel Urgent
Abnormal Lab Results
09/18/25
20:03
WBC 11.2 H 10^3/uL
(4.8-10.8)
RBC 3.73 L 10^6/uL
(4.20-5.40)
Hgb 11.3 L g/dL
(12.0-16.0)
Hct 35.9 L %
(37.0-47.0)
MCHC 31.5 L g/dL
(33.0-37.0)
Abs Immat Gran (auto) 0.1 H 10^3/uL
(0-0.05)
Absolute Lymphs (auto) 3.8 H 10^3/uL
(1.2-3.4)
Absolute Monos (auto) 1.7 H 10^3/uL
(0.1-0.6)
Immature Gran % 1.1 H %
(0-0.5)
Monocytes % 14.8 H %
(1.7-9.3)
Chloride 110 H mmol/L
(98-107)
Carbon Dioxide 19 L mmol/L
(22-30)
BUN 41 H mg/dl
(7-17)
Creatinine 2.0 H mg/dL
(0.6-1.0)
Glucose 166 H mg/dl
(70-99)
Total Protein 8.3 H g/dl
(6.3-8.2)
09/18/25 20:03
09/18/25 20:03
Vital Signs
Initial and Last Documented VS:
Initial Vital Signs
Temp Pulse Resp BP Pulse Ox
98 F 102 18 169/83 97
09/18/25 19:44 09/18/25 19:44 09/18/25 19:44 09/18/25 19:44 09/18/25 19:44
Last Documented Vital Signs
Temp Pulse Resp BP Pulse Ox
98 F 98 19 134/70 97
09/18/25 19:44 09/18/25 21:04 09/18/25 21:04 09/18/25 21:04 09/18/25 22:43
MDM/Problems Addressed
Differential Diagnosis Includes:
Note:
CHIEF COMPLAINT(S)
Memory loss for approximately two hours.
HISTORY OF PRESENT ILLNESS
The patient is an 84-year-old female with a history of kidney issues, who experienced a sudden episode of memory loss for about two hours. She last recalled preparing dinner, after which, while on the phone with her son, her son noted that she
seemed off. The patient did not realize the time during their conversation. I spoke to the son who indicated that patient was slow to respond, had repetitive questioning and her speech was 'different'. She contacted her primary care physician, who
advised visiting the hospital. The patient reported feeling better since the episode with no significant residual effects. A CT scan of the head and blood tests were conducted, showing normal results aside from the baseline kidney function issues.
ADDITIONAL HISTORY OBTAINED FROM SOURCES OTHER THAN THE PATIENT
Information provided by the patient�s son indicated that during a phone call, her responses were delayed, and her speech was unusual, which was out of character for her known sharpness in memory and cognition.
EXTERNAL RECORDS REVIEWED
A CT scan of the head completed in the emergency department was reviewed, showing no significant findings. Bloodwork was reviewed indicating baseline chronic kidney issues.
CHRONIC MEDICAL CONDITIONS SIGNIFICANTLY AFFECTING CARE
Chronic conditions affecting care include baseline kidney issues necessitating previous dialysis.
PHYSICAL EXAM
General: Alert, no acute distress.
Skin: Warm, dry.
Head: Normocephalic, atraumatic
Neck: Appears supple, trachea midline.
Eyes, Ears, Nose, Mouth, and Throat: Moist mucous membranes
Cardiovascular: No signs of cyanosis. Regular rate and rhythm
Respiratory: Respirations are non-labored.
Abdomen: Non-distended
Musculoskeletal: No deformities
Neurological: No focal neurological deficit observed.
Psychiatric: Cooperative, appropriate mood and affect.
DIFFERENTIAL DIAGNOSIS
The Differential Diagnosis includes, in no particular order and is not limited to:
- Transient global amnesia
- Transient ischemic attack
- Stroke
- Delirium
- Seizure
- Hypoglycemia
- Dementia exacerbation
- Neuroinfection
- Medication side effect
- Metabolic encephalopathy
SUMMARY OF ENCOUNTER
The patient, an 84-year-old woman, was evaluated in the emergency department following an episode of memory loss. Initial evaluation included a CT scan of the head and bloodwork, both of which showed no acute abnormalities apart from baseline renal
insufficiency. Differential diagnoses primarily considered included transient global amnesia and transient ischemic attack (TIA).
DISPOSITION
Admit overnight for neurology evaluation and possible MRI.
MANAGEMENT OF THE PATIENTS CARE WAS DISCUSSED WITH
The patient and her son were involved in a shared decision-making process regarding the possibility of an overnight hospital stay for further evaluation, including a neurology evaluation and MRI, to rule out a stroke.
MEDICAL DECISION MAKING
-Complexity of Data Reviewed: Chronic conditions affecting care include baseline kidney issues. The Differential Diagnosis includes, in no particular order and is not limited to: Transient global amnesia, Transient ischemic attack, Stroke, Delirium,
Seizure, Hypoglycemia, Dementia exacerbation, Neuroinfection, Medication side effect, Metabolic encephalopathy.
-Data:
Category 1:
- External record reviewed: CT scan of the head indicated no acute intracranial process.
Category 2:
- Clinical information was obtained from an independent historian (patient�s son).
-Risk: Admission and observation were considered for comprehensive evaluation given the complexity of the patients symptoms and chronic renal conditions.
DIAGNOSIS
- Transient global amnesia (R41.3)
- Chronic renal disease (N18.9)
- Rule out Transient ischemic attack (G45.9)
SUMMARY OF ENCOUNTER
The patient is an 84-year-old female who was seen in the emergency department after experiencing a complete memory loss episode lasting about two hours. Her son reported that her speech was off, she had repetitive questioning, and she appeared very
confused. These symptoms raised concerns for transient global amnesia versus a possible transient ischemic attack (TIA). Due to her chronic kidney disease, aspirin was not administered.
DISPOSITION
Admit to the hospitals team for further workup.
ASSESSMENT
The assessment is for transient global amnesia versus a possible transient ischemic attack (TIA), considering the sudden onset of memory loss and the symptoms observed by her son.
MEDICAL DECISION MAKING
-Complexity of Data Reviewed: Chronic conditions affecting care include baseline kidney issues. Differential Diagnosis includes transient global amnesia, transient ischemic attack, stroke, delirium, seizure, hypoglycemia, dementia exacerbation,
neuroinfection, medication side effect, and metabolic encephalopathy.
Category 1:
- Clinical information was obtained from an independent historian, the patients son.
- I reviewed the CT scan of the head, which indicated no acute intracranial process.
Category 2:
- My independent interpretation of the CT scan shows no significant intracranial abnormalities consistent with the normal radiology report.
-Risk: Admission for further evaluation, given the complexity and risk of the patients symptoms and chronic renal conditions.
DIAGNOSIS
- Transient global amnesia (R41.3)
- Chronic renal disease (N18.9)
- Rule out Transient ischemic attack (G45.9)
*Pulse Oximetry
SaO2: 97
Oxygen Mode of Delivery: Room air
Patient hypoxic: no
*Critical Care Note
Total Time (30-74mins, 75-104mins- exclusive of procedures): Not Applicable
ED Attending Note
-
Portions of this chart may have been created with voice recognition software.� Occasional wrong word or��sound alike� substitutions may have occurred due to the inherent limitations of voice recognition software.
Discharge Plan
Departure
Patient Disposition: Admit
Date of Disposition: 09/18/25
Time of Disposition: 22:44
Admit to: Med/Surg
Presentation/result/management discussed w/ accepting MD/DO: Hospitalist
Discharge Problem:
TGA (transient global amnesia)
Prescriptions:
No Action
rosuvastatin [Crestor] 40 MG tablet
40 mg PO HS
clopidogrel 75 MG tablet
75 mg PO DAILY Qty: 30 0RF
lorazepam 0.5 MG tablet
0.5 mg PO Q4HPRN PRN (Reason: anxiety )
metoprolol succinate 50 MG tablet extended release 24 hr
50 mg PO DAILY
latanoprost 1 DROP drops
1 drp RIGHT EYE HS
timolol maleate 1 DROP drops
1 drp RIGHT EYE DAILY
brimonidine 0.2 % drops
1 drp RIGHT EYE BID
dorzolamide 2 % Drops
1 drp RIGHT EYE BID
budesonide 3 mg Capsule,Delayed,Extend.Release
9 mg PO DAILY Qty: 90 0RF
Januvia 50 mg Tablet
25 mg PO DAILY Qty: 30 0RF
amlodipine 5 mg Tablet
5 mg PO DAILY Qty: 30 0RF
Referrals:
Robert Zarate DO [Family Provider, Family Practice]
Interventions
Interventions:
*Risk Screen - Suicide Last Done: 09/18/25 19:44
*General Assessment Last Done: 09/18/25 19:44
*Neglect/Abuse Screening Last Done: 09/18/25 19:44
*ED- Fall Risk Assessment Last Done: 09/18/25 21:04
*ED COVID-19 Vaccine History Last Done: 09/18/25 21:04
*ED Influenza Vaccine History Last Done: 09/18/25 21:04
ED- Neurological Assessment Last Done: 09/18/25 21:00
ED- Cardiac Assessment Last Done: 09/18/25 21:00
Discharge Date and Time
Print Language: WOLOF
--- NOTE | 2025-09-18 22:48 | HPS.HSE ---
Family Physician
-
Family Physician: Robert Zarate, DO
Chief Complaint
-
sudden episode of memory loss
History of Present Illness
84 F HX CKD vs ESRD on HD,HTN, DLP, T2DM seen at ER
- pw sudden episode of memory loss for about two hours
- she last recalled preparing dinner, after which, while on the phone with her son, her son noted that she seemed off.
- patient did not realize the time during their conversation.
- per son who indicated that patient was slow to respond, had repetitive questioning and her speech was 'different'.
- She contacted her primary care physician, who advised visiting the hospital. T
- the patient reported feeling better since the episode with no significant residual effects.
Medical History
Past Medical History
Past Medical History: Reports Other
Additional Past Medical History:
CAD,
Basal cell removed from face
essential HTN,
Hypercholesterolemia,
NIDDM,
past DC,
Anxiety
Blind right eye
Colitis
Cardiac (Stent)
Bladder tumor removed
Right and left Carotid endarterectomy
Past Surgical History: Reports Other
Additional Past Surgical History:
See above
Social History
Tobacco: Non-smoker
Alcohol: None
Drug: None
Living: Alone
Employment: Retired
Family History
Family History: Not pertinent
Allergies / Home Medications
Allergies reflects when Allergies were last updated in [facility].
Home Medications with original date entered in [facility]
Allergy/Medication List:
Allergies
Allergy/AdvReac Type Severity Reaction Status Date / Time
No Known Allergies Allergy Verified 02/23/24 11:14
Home Medications
rosuvastatin 40 mg tablet (Crestor) 40 mg PO HS High cholesterol 01/03/21
clopidogrel 75 mg tablet 75 mg PO DAILY #30 tabs 01/07/21
lorazepam 0.5 mg tablet 0.5 mg PO Q4HPRN PRN ANXIETY 02/08/21
latanoprost 0.005 % eye drops 1 drp RIGHT EYE HS Eye condition 02/16/21
metoprolol succinate 50 mg tablet,extended release 24 hr 50 mg PO DAILY Blood Pressure 02/16/21
timolol maleate 0.5 % eye drops 1 drp RIGHT EYE DAILY Eye condition 02/16/21
brimonidine 0.2 % eye drops 1 drp RIGHT EYE BID Eye Condition 01/21/24
dorzolamide 2 % eye drops 1 drp RIGHT EYE BID Eye Condition 01/22/24
amlodipine 5 mg tablet 5 mg PO DAILY #30 tabs 02/06/24
budesonide 3 mg capsule,delayed,extended release 9 mg (3 x 3 mg) PO DAILY #90 ea 02/06/24
sitagliptin phosphate 50 mg tablet (Januvia) 25 mg (1/2 x 50 mg) PO DAILY #30 tabs 02/06/24
vancomycin 125 mg capsule 125 mg PO Q6H 02/23/24
Review of Systems
-
Constitutional: Reports No Symptoms
EENT: Reports No Symptoms
Respiratory: Reports No Symptoms
Cardiac: Reports No Symptoms
Abdomen/GI: Reports No Symptoms
: Reports No Symptoms
Musculoskeletal: Reports No Symptoms
Skin: Reports No Symptoms
Neurological: Reports See HPI
Endocrine: Reports No Symptoms
Hematologic/Lymphatic: Reports No Symptoms
Psych: Reports No Symptoms
Physical Exam
Vital Signs
Vital Signs
Temp Pulse Resp BP Pulse Ox
98 F 98 19 134/70 97
09/18/25 19:44 09/18/25 21:04 09/18/25 21:04 09/18/25 21:04 09/18/25 22:43
Physical Exam
General: Well Developed, Well Nourished, No Apparent Distress, Comfortable and Conversant
HEENT: NormoCephalic, Moist mucous membranes, Nose Appears Normal and Ears Appear Normal
Respiratory: Clear
Cardiac: S1/S2 and Regular Rhythm
GI: Soft, Non Tender and Non Distended
Musculoskeletal: No Clubbing, No Cyanosis and No Edema
Skin: Warm and Dry; No Rash or Jaundice
Neuro: Awake, Alert, Oriented and AO x 3
Psych: Calm
Laboratory Results
-
09/18/25 20:03
09/18/25 20:03
Laboratory Results
Total Bilirubin 0.5 mg/dl (0.2-1.3) 09/18/25 20:03
AST 25 U/L (14-36) 09/18/25 20:03
ALT 23 U/L (0-35) 09/18/25 20:03
Alkaline Phosphatase 87 U/L (38-126) 09/18/25 20:03
Data Reviewed
-
CT Scan: Report Reviewed by me
Lab Data: Labs Reviewed by me
Old Records: Reviewed
Impression/Plan
-
Vital Signs
Temp Pulse Resp BP Pulse Ox
98 F 92 20 139/126 96
09/18/25 19:44 09/18/25 22:45 09/18/25 22:45 09/18/25 22:00 09/18/25 22:45
Level of Consciousness: 0 - Alert
LOC Questions: 0-Answers both correctly
LOC Commands: 0-Performs both correctly
Best Horizontal Gaze: 0-Normal
Visual Arriaga: 0=Normal, no visual loss
Facial Palsy: 0=Normal, symmetrical
Motor - Right Arm: 0=No drift 10 seconds
Motor - Left Arm: 0=No drift 10 seconds
Motor - Right Le-No drift 5 seconds
Motor - Left Le-No drift 5 seconds
Limb Ataxia: 0-Absent
Sensation: 0-Normal
Best Language: 0-No aphasia
Dysarthria: 0-Normal
Extinction and Inattention: 0-No abnormality
NIH Total Score:: 0
Relevant data�
02/27/24 09/18/25
04:39 20:03
WBC 11.2 H
Hgb 7.7 L 11.3 L
Plt Count 178 185
02/27/24 09/18/25
04:39 20:03
Potassium 3.7 4.1
BUN 20 H 41 H
Creatinine 2.5 H 2.0 H
eGFR 18.85 24.48
12/24/23 TTE
Normal biventricular size and systolic function without regional wall motion abnormality.
No significant valvular disease.
No significant change since the prior study of 01/04/2021.
HCT
No acute intracranial abnormality noted.
Mild atrophy with sequelae of moderate chronic small vessel ischemic disease.
Preliminary report provided by [facility] at 2057.
Electronically signed by Srinivasan Manjarrez MD, 09/18/2025 10:20 PM
Last hospitalist admission: 02/23/24 - 02/27/24
Discharge Diagnosis/Procedures:
C. difficile enteritis Finish course of p.o. vancomycin and stable
Anemia of chronic disease and recent hematoma
CKD on HD
Unexplained leukocytosis as no signs of infection after workup
ASSESSMENT & PLAN
Pending Rx reconciliation
Transient global amnesia especially antegrade amnesia
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
- Complete loss of memory for 2 hours
- son noticed repetitive questioning and that he speech was off
- NIH zero on arrival
- Currently at baseline.
- denied No emotional stress triggers
- NEG HCT
- c/w BATCH DUMPER Plavix
- CUS
- Brain MRI in AM
- Neuro consult
HLD
- on Rosuvastatin
- add ISS low
Benign Hypertension
- cont Metoprolol
HX CAD s/p stent 2018
HX DC
- on Plavix
HX CKD 4
HX [place] on biopsy, HD since early January
- No longer of HD since April 2025
Known HX
HX C Diff associated diarrhea
Ulcerative Colitis
chronic Anemia
Bladder ca
HX retroperitoneal bleed post K biopsy 01/28
DVT Px: SCD
Full code
OBS TLM
[2025-09-18 23:01] VITALS: BP 150/66
[2025-09-19 01:39] VITALS: BP 140/93; BMI 30.5
[2025-09-19 03:40] VITALS: BP 113/60
[2025-09-19 07:00] VITALS: BP 132/66
[2025-09-19 07:25] LABS: Hematocrit 31.2 % (37.0-47.0); Hemoglobin 10.1 g/dL (12.0-16.0); Mean Corp Hgb Conc. 32.4 g/dL (33.0-37.0); Mean Corpuscular Volume 94.3 fL (81.0-99.0); Platelet Count 167 10^3/uL (130-400); Red Cell Dist. Width 14.2 % (11.5-14.5)
--- NOTE | 2025-09-19 07:31 | CON.NEURO ---
Consultation
Order
Date of Consultation: 09/19/25
Requesting Provider: Sravanthi Frost CRNP
Reason for Consult: Transient global amnesia
Neurology Consultation Note.
HPI: This is an 84-year-old RH woman who presented to [facility] on 09/18/2025 with transient memory dysfunction.
Ms. Montero recalls eating three-quarters of the steak but has no memory of finishing the meal or cleaning up afterward. The next thing she remembers is it being 6 o'clock and talking to her son, who noticed something was wrong with her. Her primary
doctor advised her to come to the hospital.
Ms. Montero has a history of R CRAO. She has been compliant with Plavix.
No reports of headaches, history of seizures or change in cognition.
ER VS: 169/83, 102, afebrile
EKG: Not available
PDMP:none
Labs: Glucose�166, WBCs�11.2, hemoglobin�11.3, normal sodium, creatinine�2.0, LDL�47.
CT head without contrast�minimal atrophy of and moderate chronic subcortical white matter hypodensities
PMH: L pontine stroke(2020), bladder cancer, ulcerative colitis, CAD, HTN, DLP, DM, CKD, anemia, h/o retroperitoneal hematoma, glaucoma
PSH: B/L CEA, TURBT , PTCI, left renal biopsy
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
FH: Not contributory to current presentation.
All: Mesalamine, macrolide,
ROS: Constitutional: Negative. Negative for chills, fever and unexpected weight change.
HEENT: Negative for ear pain, hearing loss, tinnitus and trouble swallowing.
Eyes: Positive for chronic right visual loss
Endocrine: Negative. Negative for cold intolerance.
Musculoskeletal: Negative for back pain, gait problem, neck pain and neck stiffness.
Skin: Negative for rash.
Allergic/Immunologic: Negative. Negative for immunocompromised state.
Neurological: Positive for transient amnesia
General: Well developed. In no acute distress.
Cardio: Regular rate and rhythm without murmur. Extremities are without cyanosis or edema.
Neuro:
Mental Status: Alert, oriented to person, place, and date. Normal attention and recall. Good fund of knowledge. Follows complex requests across the midline. Comprehension, naming, and repetition intact. Immediate and delayed recall 3/3.
Cranial Nerves: OS surgical, opacification of right cornea. No light perception on the right EOMs full. Visual patiño full to confrontation on the L. R ptosis. No nystagmus. Face symmetric. Minimally impaired hearing AU. The palate elevated
well. SCMs and traps 5/5. Tongue midline. No dysarthria.
Motor: Normal bulk and tone. No pronator or arm drift. Strength 5/5 throughout. No clonus.
Reflexes: 2+ throughout the upper extremities and knees. Plantar responses flexor bilaterally.
Sensory: Normal vibration and JPS at the toes
Coordination: No dysmetria or tremor.
Gait: deferred
Assessment and Plan:
I. Transient global amnesia. TGA is a�benign, self-limited�syndrome of sudden anterograde amnesia with preserved personal identity and no focal deficits, resolving within 24 hours. It most often affects people over 50 and is strongly linked
to�migraine�and�jugular valve insufficiency. Management is supportive; recurrence is low (?6�10%), and long-term prognosis is excellent, with no increased risk of stroke or dementia.
II. History of L pontine stroke, R CRAO
III. History of B/L CEA
-Continue telemetry monitoring
-Continue Plavix 75 mg once a day
-Brain MRI without valentine
-Will continue to follow.
I personally reviewed all radiology and labs along with past medical records pertinent to current medical problems. Total time spent in patient care is 62 minutes.
Thank you for allowing us to participate in the care of this patient. Please do not hesitate to contact us with any questions or concerns.
Subjective/Objective
Subjective Data
Date of Service: September 19, 2025
Objective Data
Vital Signs
Temp Pulse Resp BP Pulse Ox
36.6 C 77 17 113/60 95
09/19/25 03:40 09/19/25 03:40 09/19/25 03:40 09/19/25 03:40 09/19/25 03:40
Lab Results
09/19/25 05:59
Sodium 141 mmol/L (135-145) 09/18/25 20:03
Potassium 4.1 mmol/L (3.5-5.1) 09/18/25 20:03
BUN 41 mg/dl (7-17) H 09/18/25 20:03
Glucose 166 mg/dl (70-99) H 09/18/25 20:03
Calcium 9.6 mg/dl (8.4-10.2) 09/18/25 20:03
Patient Allergies
No Known Allergies Allergy (Verified 02/23/24 11:14)
Medications
-
Active Medications
Generic Name Dose Route Start Last Admin
Trade Name Freq PRN Reason Stop Dose Admin
Atropine Sulfate 0 drop 09/19/25 08:00
Atropine Sulfate 1% (Ophthalmic Drops) Droptainer RIGHT EYE 10/17/25 07:59
DAILY LA
Brimonidine Tartrate 0 drop 09/19/25 08:00
Brimonidine 0.2% (Ophthalmic Solution) Bottle RIGHT EYE 10/17/25 07:59
BID LA
Clopidogrel Bisulfate 75 mg 09/19/25 08:00
Clopidogrel 75 Mg Tablet PO 10/17/25 07:59
DAILY LA
Dapagliflozin 10 mg 09/19/25 08:00
Dapagliflozin (Farxiga) 10 Mg Tablet PO 10/17/25 07:59
DAILY LA
Dorzolamide HCl 0 drop 09/19/25 08:00
Dorzolamide 2% (Ophthalmic Solution) 10 Ml Bottle RIGHT EYE 10/17/25 07:59
BID LA
Latanoprost 0 drop 09/19/25 22:00
Latanoprost 0.005% (Ophthalmic Solution) 2.5 Ml Bottle RIGHT EYE 10/17/25 21:59
HS LA
Metoprolol Succinate 50 mg 09/19/25 08:00
Metoprolol 50 Mg Extended Release Tablet PO 10/17/25 07:59
DAILY LA
Rosuvastatin Calcium 40 mg 09/19/25 22:00
Rosuvastatin (Crestor) 20 Mg Tablet PO 10/17/25 21:59
HS LA
Sodium Chloride 0 flush 09/19/25 02:00
Sodium Chloride 0.9% (Flush) Syringe IV 10/17/25 01:59
PER PROTOCOL LA
Timolol Maleate 0 drop 09/19/25 08:00
Timolol 0.5% (Ophthalmic Solution) Bottle RIGHT EYE 10/17/25 07:59
DAILY LA
Home Medications
�Medication �Instructions �Recorded
rosuvastatin 40 mg tablet (Crestor) 40 mg PO HS High cholesterol 01/03/21
clopidogrel 75 mg tablet 75 mg PO DAILY #30 tabs 01/07/21
latanoprost 0.005 % eye drops 1 drp RIGHT EYE HS Eye condition 02/16/21
timolol maleate 0.5 % eye drops 1 drp RIGHT EYE DAILY Eye condition 02/16/21
brimonidine 0.2 % eye drops 1 drp RIGHT EYE BID Eye Condition 01/21/24
dorzolamide 2 % eye drops 1 drp RIGHT EYE BID Eye Condition 01/22/24
atropine 1 % eye drops 1 drp RIGHT EYE DAILY 09/18/25
empagliflozin 10 mg tablet 10 mg PO DAILY 09/18/25
(Jardiance)
metoprolol succinate 50 mg 50 mg PO DAILY 09/18/25
tablet,extended release 24 hr
Vital Signs and Labs
-
Vital Signs and Labs:
Vital Signs
Temp Pulse Resp BP Pulse Ox
36.6 C 77 17 113/60 95
09/19/25 03:40 09/19/25 03:40 09/19/25 03:40 09/19/25 03:40 09/19/25 03:40
Lab Results
09/19/25 05:59
09/19/25 05:59
Sodium 140 mmol/L (135-145) 09/19/25 05:59
Potassium 4.1 mmol/L (3.5-5.1) 09/19/25 05:59
BUN 43 mg/dl (7-17) H 09/19/25 05:59
Glucose 137 mg/dl (70-99) H 09/19/25 05:59
Calcium 9.1 mg/dl (8.4-10.2) 09/19/25 05:59
LDL Cholesterol, Calc 47 mg/dl 09/19/25 05:59
Medications
-
Medications:
Generic Name Dose Route Start Last Admin
Trade Name Freq PRN Reason Stop Dose Admin
Atropine Sulfate 0 drop 09/19/25 08:00
Atropine Sulfate 1% (Ophthalmic Drops) Droptainer RIGHT EYE 10/17/25 07:59
DAILY LA
Brimonidine Tartrate 0 drop 09/19/25 08:00
Brimonidine 0.2% (Ophthalmic Solution) Bottle RIGHT EYE 10/17/25 07:59
BID LA
Clopidogrel Bisulfate 75 mg 09/19/25 08:00
Clopidogrel 75 Mg Tablet PO 10/17/25 07:59
DAILY LA
Dapagliflozin 10 mg 09/19/25 08:00
Dapagliflozin (Farxiga) 10 Mg Tablet PO 10/17/25 07:59
DAILY LA
Dorzolamide HCl 0 drop 09/19/25 08:00
Dorzolamide 2% (Ophthalmic Solution) 10 Ml Bottle RIGHT EYE 10/17/25 07:59
BID LA
Latanoprost 0 drop 09/19/25 22:00
Latanoprost 0.005% (Ophthalmic Solution) 2.5 Ml Bottle RIGHT EYE 10/17/25 21:59
HS LA
Metoprolol Succinate 50 mg 09/19/25 08:00
Metoprolol 50 Mg Extended Release Tablet PO 10/17/25 07:59
DAILY LA
Rosuvastatin Calcium 40 mg 09/19/25 22:00
Rosuvastatin (Crestor) 20 Mg Tablet PO 10/17/25 21:59
HS LA
Sodium Chloride 0 flush 09/19/25 02:00
Sodium Chloride 0.9% (Flush) Syringe IV 10/17/25 01:59
PER PROTOCOL LA
Timolol Maleate 0 drop 09/19/25 08:00
Timolol 0.5% (Ophthalmic Solution) Bottle RIGHT EYE 10/17/25 07:59
DAILY LA
Home Medications
-
Home Medications
rosuvastatin 40 mg tablet (Crestor) 40 mg PO HS High cholesterol 01/03/21
clopidogrel 75 mg tablet 75 mg PO DAILY #30 tabs 01/07/21
latanoprost 0.005 % eye drops 1 drp RIGHT EYE HS Eye condition 02/16/21
timolol maleate 0.5 % eye drops 1 drp RIGHT EYE DAILY Eye condition 02/16/21
brimonidine 0.2 % eye drops 1 drp RIGHT EYE BID Eye Condition 01/21/24
dorzolamide 2 % eye drops 1 drp RIGHT EYE BID Eye Condition 01/22/24
atropine 1 % eye drops 1 drp RIGHT EYE DAILY 09/18/25
empagliflozin 10 mg tablet (Jardiance) 10 mg PO DAILY 09/18/25
metoprolol succinate 50 mg tablet,extended release 24 hr 50 mg PO DAILY 09/18/25
[2025-09-19 07:38] LABS: ALT (SGPT) 18 U/L (0-35); AST (SGOT) 19 U/L (14-36); Albumin 4.3 g/dl (3.5-5.0); Alkaline Phosphatase 79 U/L (38-126); Blood Urea Nitrogen 43 mg/dl (7-17); Calcium 9.1 mg/dl (8.4-10.2); Carbon Dioxide 18 mmol/L (22-30); Chloride 112 mmol/L (98-107); Estimated Creatinine Clearance 22 ml/min; Glucose 137 mg/dl (70-99); HDL Cholesterol 45 mg/dl; LDL Cholesterol, Calculated 47 mg/dl; Potassium 4.1 mmol/L (3.5-5.1); Sodium 140 mmol/L (135-145); Total Protein 7.2 g/dl (6.3-8.2); Very Low Density Lipoprotein 26 mg/dl (0-30); eGFR 27.78
[2025-09-19 07:58] LABS: Nucleated Red Blood Cells % 0 %
[2025-09-19] MEDS: PLAVIX 75 MG PO (08:23)
[2025-09-19] MEDS: FARXIGA 10 MG PO (08:23)
[2025-09-19] MEDS: TOPROL XL 50 MG PO (08:23)
[2025-09-19 08:56] LABS: Glycohemoglobin (HgbA1c) 6.7 % (4.0-5.9)
[2025-09-19 11:00] VITALS: BP 150/62
[2025-09-19 12:33] VITALS: BP 146/78; PULSE 67; O2SAT 99
--- NOTE | 2025-09-19 13:26 | W.PN.UPDATE ---
Update Note
Progress Note Update
Brain MRI was reviewed. No evidence of acute infarcts or temporal lobe abnormalities.
--- NOTE | 2025-09-19 13:43 | W.PN.HOSP.TC ---
Today's Communication/Plan
-
discharge
Assessment / Plan
Assessment / Plan
Physical Exam
General: No acute distress, appears comfortable at this time.
HEENT: NormoCephalic, Moist mucous membranes, EOMI, right eye ptosis baseline as per pt from prior stroke 2020
Respiratory: Clear
Cardiac: S1/S2 and Regular Rhythm
GI: Soft, Non Tender and Non Distended
Musculoskeletal: No Clubbing, No Cyanosis and No Edema
Skin: Warm and Dry; No Rash or Jaundice
Neuro: AOx3 conversant coherent
Psych: Calm
84F CKD4 hx HD HTN HLD DM CAD stent 2018 R CRAO b/l CEA here for evaluation TGA
Transient global amnesia especially antegrade amnesia
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
- Complete loss of memory for 2 hours
- son noticed repetitive questioning and that he speech was off
- NIH zero on arrival
- Currently at baseline.
- denied No emotional stress triggers
- NEG HCT
- c/w PROJECT MANAGER/DESIGN MANAGER Plavix
- Brain MRI appreciated no acute abn's
- Neuro consult appreciated likely TGA, benign self-limited syndrome, stable for discharge
HLD
- on Rosuvastatin
Benign Hypertension
- cont Metoprolol
HX CAD s/p stent 2017
HX ID
- on Plavix
DM
-A1c 6.7, DM well controlled
- cont home Jardiance on discharge (substituted for Farxiga during hospital stay)
HX CKD 4
HX [place] on biopsy, HD since early January
- No longer of HD since April 2025
- Renal function stable
Known HX
HX C Diff associated diarrhea
Ulcerative Colitis
chronic Anemia
Bladder ca
HX retroperitoneal bleed post K biopsy 01/28
DVT Px: SCD
Full code
OBS TLM
Medically stable for discharge home with outpatient follow up recommendations
Discussed with patient and patient's son Shane
Total Time Preparing Discharge ___40____ minutes including examination of the patient, summary of the hospital stay, instructions for continuing care to all relevant caregivers; and preparation of discharge records, prescriptions, and referral
forms if necessary.
Anticipated Discharge: Today
Subjective/Interval History
-
Date of Service: September 19, 2025
No acute distress, resting comfortably in bed, overall reports feeling well. Denies new acute issues. Eager to go home. Son Shane present during evaluation.
Objective Data
-
Labs:
Laboratory Results
09/19/25
05:59
WBC 9.6
Hgb 10.1 L
Hct 31.2 L
Plt Count 167
Sodium 140
Potassium 4.1
Chloride 112 H
Carbon Dioxide 18 L
BUN 43 H
Creatinine 1.8 H
Glucose 137 H
Calcium 9.1
Total Bilirubin 0.3
AST 19
ALT 18
Alkaline Phosphatase 79
Vital Signs:
Vital Signs
Temp Pulse Resp BP Pulse Ox
98 F 73 16 150/62 98
09/19/25 11:00 09/19/25 11:00 09/19/25 11:00 09/19/25 11:00 09/19/25 11:00
I&O
09/18/25 09/19/25 09/20/25
06:59 06:59 06:59
Intake Total 0 / 0
Balance 0 / 0
--- NOTE | 2025-09-19 14:53 | W.DCSUMMARY ---
Discharge Summary
Discharge Data
Date of Admission: 09/18/25
Date of Discharge: 09/19/25
-
Pending Results: No
Hospital Course
84F CKD4 hx HD HTN HLD DM CAD stent 2018 R CRAO b/l CEA here for evaluation TGA. Complete loss of memory for 2 hours. Son noticed repetitive questioning and that her speech was off. NIH zero on arrival, mental status at baseline. Denied
emotional stress triggers. NEG HCT. 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 Brain MRI appreciated no acute abn's. Neuro consult appreciated likely TGA, benign self-limited syndrome, stable for discharge. Medically stable, patient was discharged home with outpatient
follow up recommendations.
Discharge Plan
-
Patient Disposition: Home (Routine Discharge)
Discharge Diagnosis/Procedures: Transient Global Amnesia
Condition: Fair
Diet: Low Cholesterol and 2 Gram Sodium
Activity: As tolerated
Driving Restrictions: As prior to admission
Bathing Restrictions: None
Activity Restrictions/Additional Instructions:
Follow up with primary care provider in 1 week of discharge.
Referrals:
Robert Zarate DO [Family Provider, Family Practice] - in one week
Prescriptions:
Continued
rosuvastatin [Crestor] 40 MG tablet
40 mg PO HS
clopidogrel 75 MG tablet
75 mg PO DAILY Qty: 30 0RF
latanoprost 1 DROP drops
1 drp RIGHT EYE HS
timolol maleate 1 DROP drops
1 drp RIGHT EYE DAILY
brimonidine 0.2 % drops
1 drp RIGHT EYE BID
dorzolamide 2 % Drops
1 drp RIGHT EYE BID
metoprolol succinate 50 mg tablet extended release 24 hr
50 mg PO DAILY
atropine 1 % drops
1 drp RIGHT EYE DAILY
Jardiance 10 mg tablet
10 mg PO DAILY
Discharge Orders:
Discharge Patient (As Directed); Ordered 09/19/25
Ordered By: Crissy Bloom
Discharge Date and Time
Discharge Date/Time: 09/19/25 15:38
Print Language: MARSHALLESE
[2025-09-19] MEDS: FLUZONE HIGH-DOSE 2025-26 0.5 ML IM (15:05)
--- NOTE | 2025-09-19 15:45 | CM ---
Patient discharged to home by nursing before Muffle Operator completed assessment.
== END 2025-09-19 15:38 | disposition home or self-care (01) ==
LOC: 4 EAST ACU 23:23
PROVIDERS: Clinical Nurse Specialist Family Health; ADMITTING PHYSICIAN Internal Medicine; ATTENDING PHYSICIAN Internal Medicine; CONSULT PHYSICIAN Psychiatry & Neurology Neurology; EMERGENCY PHYSICIAN Student in an Organized Health Care Education/Training Program; FAMILY PHYSICIAN Family Medicine
DX: G45.4 Transient global amnesia (principal); I25.10 Atherosclerotic heart disease of native coronary artery without angina pectoris; E78.00 Pure hypercholesterolemia, unspecified; N18.4 Chronic kidney disease, stage 4 (severe); I12.9 Hypertensive chronic kidney disease with stage 1 through stage 4 chronic kidney disease, or unspecified chronic kidney disease; K51.90 Ulcerative colitis, unspecified, without complications; Z79.02 Long term (current) use of antithrombotics/antiplatelets; Z87.891 Personal history of nicotine dependence; Z79.899 Other long term (current) drug therapy; Z86.73 Personal history of transient ischemic attack (TIA), and cerebral infarction without residual deficits; Z99.2 Dependence on renal dialysis; E11.22 Type 2 diabetes mellitus with diabetic chronic kidney disease
CPT/HCPCS: 70450; 70551; 80053; 80061; 83036; 85025; 90662; 97162; 99285; G0008; G0378